=== PATIENT | male | born 1970 | race Caucasian/White ===

== ENCOUNTER 2017-12-11 21:33 | Inpatient (IN) | payer BC, OTHER ==
--- NOTE | 2017-12-11 21:42 | ERPHSYRPT ---
- History of Present Illness Time Seen by Provider: 12/11/17 21:42 Source: patient Exam Limitations: no limitations Physician History: The patient is a 47-year-old male with his complaining of worsening intermittent left-sided posterior head pain for 2 years. It has worsened over the last 3 months. Over the last week it is almost constant pain. He quit taking his medicines for hypertension and high cholesterol 2 years ago because they were too expensive. He knows his blood pressure is high. He denies visual disturbances. He denies numbness or tingling. He denies chest pain or shortness of breath. His past medical history is significant for hypertension and high cholesterol. Timing/Duration: intermittent, gradual onset, worse, other (2 years) Severity: severe Modifying Factors: Improves With: nothing Associated Symptoms: headaches Allergies/Adverse Reactions: Iodinated Contrast- Oral and IV Dye [Iodinated Contrast Media - IV Dye] Allergy (Mild, Verified 05/02/16 03:15) Hives Home Medications: Aspirin 81 gm Chew [Baby Aspirin 81 mg Chew] 81 mg PO DAILY 08/09/15 [ History] Atorvastatin Calcium [Lipitor 20MG Tablet] 20 mg PO DAILY 08/09/15 [History] Chlorthalidone 25 mg PO DAILY 08/09/15 [History] Clonidine HCl [Catapres] 0.2 mg PO DAILY 08/09/15 [History] Nebivolol HCl [Bystolic] 10 mg PO DAILY 08/09/15 [History] Olmesartan/Hydrochlorothiazide [Benicar Hct 40-25 mg Tablet] 1 each PO DAILY [History] Hx Tetanus, Diphtheria Vaccination/Date Given: Yes Hx Influenza Vaccination/Date Given: No Hx Pneumococcal Vaccination/Date Given: No - Review of Systems Constitutional: No Fever, No Chills Eyes: No Symptoms Ears, Nose, & Throat: No Symptoms Respiratory: No Cough, No Dyspnea Cardiac: No Chest Pain, No Edema, No Syncope Abdominal/Gastrointestinal: No Abdominal Pain, No Nausea, No Vomiting, No Diarrhea Genitourinary Symptoms: No Dysuria Musculoskeletal: No Back Pain, No Neck Pain Skin: No Rash Neurological: Headache Psychological: No Symptoms Endocrine: No Symptoms Hematologic/Lymphatic: No Symptoms Immunological/Allergic: No Symptoms All Other Systems: Reviewed and Negative - Past Medical History Pertinent Past Medical History: Yes Neurological History: No Pertinent History ENT History: No Pertinent History Cardiac History: High Cholesterol, Hypertension Respiratory History: No Pertinent History Endocrine Medical History: No Pertinent History Musculoskeletal History: No Pertinent History GI Medical History: No Pertinent History History: No Pertinent History Psycho-Social History: No Pertinent History Male Reproductive Disorders: No Pertinent History - Past Surgical History Past Surgical History: Yes Neuro Surgical History: No Pertinent History Cardiac: No Pertinent History Respiratory: No Pertinent History Gastrointestinal: No Pertinent History Genitourinary: No Pertinent History Musculoskeletal: Orthopedic Surgery Male Surgical History: No Pertinent History - Social History Smoking Status: Never smoker Exposure to second hand smoke: No Drug Use: none Patient Lives Alone: No - Nursing Vital Signs Nursing Vital Signs: Initial Vital Signs Pulse Rate 81 12/11/17 21:33 Respiratory Rate 16 12/11/17 21:33 Blood Pressure 247/150 12/11/17 21:33 O2 Sat by Pulse Oximetry 96 12/11/17 21:33 Pain Scale Pain Intensity 6 - Physical Exam General Appearance: no apparent distress, alert Eye Exam: PERRL/EOMI, eyes nml inspection Ears, Nose, Throat Exam: normal ENT inspection, TMs normal, pharynx normal, moist mucous membranes Neck Exam: supple, full range of motion, other (point tenderness at base of left lateral occiput.) Respiratory Exam: normal breath sounds, lungs clear, No respiratory distress Cardiovascular Exam: regular rate/rhythm, normal heart sounds, normal peripheral pulses Gastrointestinal/Abdomen Exam: soft, normal bowel sounds, No tenderness, No mass Rectal Exam: not done Back Exam: normal inspection, normal range of motion, No CVA tenderness, No vertebral tenderness Neurologic Exam: alert, oriented x 3, cooperative, normal mood/affect, nml cerebellar function, nml station & gait, sensation nml, No motor deficits Skin Exam: normal color, warm, dry, No rash Lymphatic Exam: No adenopathy SpO2 Interpretation: normal Oxygen Delivery: Room Air - Course EKG Interpreted by Me: RATE, Left [place] Deviation, NORMAL INTERVALS, NORMAL QRS - Radiology Exams Chest X-ray Interpretation: Interpreted by me, Negative - CT Exams Head CT Interpretation: Negative (Per Dr Gallagher), Tele-radiologist Report, No/ Intracranial Hemorrhag Ordered Tests: Active Orders 24 hr Category Date Time Status EKG-ER Only STAT Care 12/11/17 22:03 Active IV Insertion STAT Care 12/11/17 22:03 Active CHEST 2 VIEWS (PA AND LAT) Stat Exams 12/11/17 22:04 Taken HEAD WITHOUT CONTRAST [CT] Stat Exams 12/11/17 22:05 Completed CBC W DIFF Stat Lab 12/11/17 22:15 Completed CMP Stat Lab 12/11/17 22:15 Completed PROTIME WITH INR Stat Lab 12/11/17 22:15 Completed TROPONIN Q3H Lab 12/11/17 22:15 Completed TROPONIN Q3H Lab 12/12/17 01:15 Ordered TROPONIN Q3H Lab 12/12/17 04:15 Ordered TROPONIN Q3H Lab 12/12/17 07:15 Ordered TROPONIN Q3H Lab 12/12/17 10:15 Ordered UA W/RFX UR CULTURE Stat Lab 12/11/17 22:31 Completed Urine Triage Profile Stat Lab 12/11/17 22:31 Completed Medication Summary Discontinued Medications Generic Name Dose Route Start Last Admin Trade Name Freq PRN Reason Stop Dose Admin Hydralazine HCl 20 mg 12/11/17 22:05 12/11/17 22:20 Apresoline 20 Mg/Ml Inj IV 12/11/17 22:06 20 mg STAT ONE Administration Hydralazine HCl Confirm 12/11/17 22:13 Apresoline 20 Mg/Ml Inj Administered 12/11/17 22:14 Dose 20 mg .ROUTE .STK-MED ONE Hydralazine HCl 20 mg 12/11/17 22:59 Apresoline 20 Mg/Ml Inj IV 12/11/17 23:00 STAT ONE Hydralazine HCl Confirm 12/11/17 23:01 Apresoline 20 Mg/Ml Inj Administered 12/11/17 23:02 Dose 20 mg .ROUTE .STK-MED ONE Morphine Sulfate 4 mg 12/11/17 23:04 Morphine Sulfate 4 Mg Inj IV 12/11/17 23:05 STAT ONE Morphine Sulfate Confirm 12/11/17 23:07 Morphine Sulfate 4 Mg Inj Administered 12/11/17 23:08 Dose 4 mg .ROUTE .STK-MED ONE Ondansetron HCl 4 mg 12/11/17 23:04 Zofran 4 Mg/2 Ml Vial IV 12/11/17 23:05 STAT ONE Ondansetron HCl Confirm 12/11/17 23:07 Zofran 4 Mg/2 Ml Vial Administered 12/11/17 23:08 Dose 4 mg .ROUTE .STK-MED ONE Potassium Chloride 40 meq 12/11/17 22:36 12/11/17 22:56 Klor Con 10 Meq PO 12/11/17 22:37 40 meq STAT ONE Administration Potassium Chloride Confirm 12/11/17 22:55 Klor Con 10 Meq Administered 12/11/17 22:56 Dose 40 meq PO .STK-MED ONE Lab/Rad Data: Laboratory Result Diagrams 12/11/17 22:15 12/11/17 22:15 Laboratory Results 12/11/17 12/11/17 12/11/17 Range/Units 22:31 22:31 22:15 WBC (4.0-10.5) K/mm3 RBC (4.1-5.6) M/mm3 Hgb (12.5-18.0) gm/dl Hct (42-50) % MCV (78-100) fl MCH (26-32) pg MCHC (32-36) g/dl RDW (11.5-14.0) % Plt Count (150-450) K/mm3 MPV (6-9.5) fl Gran % (36.0-66.0) % Eos # (Auto) (0-0.5) Absolute Lymphs (auto) (1.0-4.6) Absolute Monos (auto) (0.0-1.3) Lymphocytes % (24.0-44.0) % Monocytes % (0.0-12.0) % Eosinophils % (0.00-5.0) % Basophils % (0.0-0.4) % Absolute Granulocytes (1.4-6.9) Basophils # (0-0.4) PT (8.83-12.87) SECONDS INR (0.8-3.0) Sodium (137-145) mmol/L Potassium (3.5-5.1) mmol/L Chloride (98-107) mmol/L Carbon Dioxide (22-30) mmol/L Anion Gap (5-15) MEQ/L BUN (9-20) mg/dL Creatinine (0.66-1.25) mg/dL Estimated GFR ML/MIN Glucose (74-106) mg/dL Calcium (8.4-10.2) mg/dL Total Bilirubin (0.2-1.3) mg/dL AST (17-59) U/L ALT (0-50) U/L Alkaline Phosphatase (38-126) U/L Troponin I < 0.012 (0.000-0.034) ng/mL Serum Total Protein (6.3-8.2) g/dL Albumin (3.5-5.0) g/dL Ur Collection Type VOID Urine Color YELLOW (YELLOW) Urine Appearance CLEAR (CLEAR) Urine pH 5.0 (5-6) Ur Specific [place] 1.020 (1.005-1.025) Urine Protein NEGATIVE (Negative) Urine Ketones NEGATIVE (NEGATIVE) Urine Blood NEGATIVE (0-5) Pastor/ul Urine Nitrite NEGATIVE (NEGATIVE) Urine Bilirubin NEGATIVE (NEGATIVE) Urine Urobilinogen NORMAL (0-1) mg/dL Ur Leukocyte Esterase NEGATIVE (NEGATIVE) Urine Culture Reflexed NO (NO) Urine Glucose NEGATIVE (NEGATIVE) mg/dL Urine Opiates Level NEGATIVE (NEGATIVE) Ur Methadone NEGATIVE (NEGATIVE) Urine Barbiturates NEGATIVE (NEGATIVE) Ur Phencyclidine (PCP) NEGATIVE (NEGATIVE) Urine Amphetamine NEGATIVE (NEGATIVE) U Benzodiazepine Level NEGATIVE (NEGATIVE) Urine Cocaine NEGATIVE (NEGATIVE) Urine Marijuana (THC) NEGATIVE (NEGATIVE) Specimen Received 12/11/17222912/11/17 12/11/17 12/11/17 Range/Units 22:15 22:15 22:15 WBC 6.8 (4.0-10.5) K/mm3 RBC 5.17 (4.1-5.6) M/mm3 Hgb 15.7 (12.5-18.0) gm/dl Hct 44.3 (42-50) % MCV 85.7 (78-100) fl MCH 30.4 (26-32) pg MCHC 35.4 (32-36) g/dl RDW 14.0 (11.5-14.0) % Plt Count 205 (150-450) K/mm3 MPV 11.0 H (6-9.5) fl Gran % 49.1 (36.0-66.0) % Eos # (Auto) 0.31 (0-0.5) Absolute Lymphs (auto) 2.44 (1.0-4.6) Absolute Monos (auto) 0.69 (0.0-1.3) Lymphocytes % 35.7 (24.0-44.0) % Monocytes % 10.1 (0.0-12.0) % Eosinophils % 4.5 (0.00-5.0) % Basophils % 0.6 (0.0-0.4) % Absolute Granulocytes 3.35 (1.4-6.9) Basophils # 0.04 (0-0.4) PT 11.1 (8.83-12.87) SECONDS INR 0.95 (0.8-3.0) Sodium 146 H (137-145) mmol/L Potassium 2.8 L* (3.5-5.1) mmol/L Chloride 104 (98-107) mmol/L Carbon Dioxide 31 H (22-30) mmol/L Anion Gap 13.4 (5-15) MEQ/L BUN 16 (9-20) mg/dL Creatinine 1.28 H (0.66-1.25) mg/dL Estimated GFR > 60.0 ML/MIN Glucose 150 H (74-106) mg/dL Calcium 9.8 (8.4-10.2) mg/dL Total Bilirubin 0.50 (0.2-1.3) mg/dL AST 25 (17-59) U/L ALT 44 (0-50) U/L Alkaline Phosphatase 96 (38-126) U/L Troponin I (0.000-0.034) ng/mL Serum Total Protein 7.4 (6.3-8.2) g/dL Albumin 4.6 (3.5-5.0) g/dL Ur Collection Type Urine Color (YELLOW) Urine Appearance (CLEAR) Urine pH (5-6) Ur Specific [place] (1.005-1.025) Urine Protein (Negative) Urine Ketones (NEGATIVE) Urine Blood (0-5) Pastor/ul Urine Nitrite (NEGATIVE) Urine Bilirubin (NEGATIVE) Urine Urobilinogen (0-1) mg/dL Ur Leukocyte Esterase (NEGATIVE) Urine Culture Reflexed (NO) Urine Glucose (NEGATIVE) mg/dL Urine Opiates Level (NEGATIVE) Ur Methadone (NEGATIVE) Urine Barbiturates (NEGATIVE) Ur Phencyclidine (PCP) (NEGATIVE) Urine Amphetamine (NEGATIVE) U Benzodiazepine Level (NEGATIVE) Urine Cocaine (NEGATIVE) Urine Marijuana (THC) (NEGATIVE) Specimen Received - Progress Progress: improved Discussed with : Constantine (admit for Dr Suarez) Will see patient in: hospital (full admit) Counseled pt/family regarding: lab results, diagnosis, rad results - Departure Time of Disposition: 23:13 Departure Disposition: In-patient Admission (per Dr Fitch for Dr Suarez) Clinical Impression: Malignant hypertension, Hypokalemia, Headache Condition: Stable Critical Care Time: No Referrals: PHOEBE SUAREZ MD [Primary Care Provider] -
[2017-12-11] MEDS ORDERED: APRESOLINE 20 MG/ML INJ IV ONE ×2 (22:05→22:59)
[2017-12-11] MEDS ORDERED: APRESOLINE 20 MG/ML INJ ONE ×2 (22:13→23:01)
[2017-12-11 22:19] LABS: BASOPHIL % 0.6 % (0.0-0.4); Basophil (Absolute #) 0.04 (0-0.4); Eosinophil % 4.5 % (0.00-5.0); Eosinophil (Absolute #) 0.31 (0-0.5); Granulocyte Absolute (ANC) 3.35 (1.4-6.9); Granulocytes % 49.1 % (36.0-66.0); Hematocrit 44.3 % (42-50); Hemoglobin 15.7 gm/dl (12.5-18.0); INR 0.95 (0.8-3.0); Lymphocyte (Absolute #) 2.44 (1.0-4.6); Lymphocytes % 35.7 % (24.0-44.0); Mean Cell Volume 85.7 fl (78-100); Mean Corpuscular Hemoglobin 30.4 pg (26-32); Mean Corpuscular Hgb Concent. 35.4 g/dl (32-36); Monocyte (Absolute #) 0.69 (0.0-1.3); Monocytes % 10.1 % (0.0-12.0); Platelet Count 205 K/mm3 (150-450); Red Blood Count 5.17 M/mm3 (4.1-5.6); White Blood Count 6.8 K/mm3 (4.0-10.5)
[2017-12-11 22:22] LABS: ALBUMIN 4.6 g/dL (3.5-5.0); ALKALINE PHOSPHATASE 96 U/L (38-126); ANION GAP 13.4 MEQ/L (5-15); BLOOD UREA NITROGEN 16 mg/dL (9-20); CHLORIDE 104 mmol/L (98-107); Calcium 9.8 mg/dL (8.4-10.2); Carbon Dioxide 31 mmol/L (22-30); Creatinine 1 1.28 mg/dL (0.66-1.25); Glucose 150 mg/dL (74-106); SGOT/AST 25 U/L (17-59); SGPT/ALT 44 U/L (0-50); SODIUM 146 mmol/L (137-145); Total Protein 7.4 g/dL (6.3-8.2)
[2017-12-11 22:28] LABS: Potassium 2.8 mmol/L (3.5-5.1)
[2017-12-11 22:35] LABS: Appearance CLEAR (CLEAR); Bilirubin NEGATIVE (NEGATIVE); Blood NEGATIVE Ery/ul (0-5); Glucose NEGATIVE (NEGATIVE); Ketones NEGATIVE (NEGATIVE); Leukocyte Esterase NEGATIVE (NEGATIVE); Nitrite NEGATIVE (NEGATIVE); Protein,Urine Dip NEGATIVE (Negative); Urobilinogen NORMAL mg/dL (0-1)
[2017-12-11] MEDS ORDERED: Klor Con 10 MEQ PO ONE ×2 (22:36→22:55)
--- NOTE | 2017-12-11 22:45 | XRAY ---
Indication: Headache. Hypertension. Multiple contiguous axial images obtained through the head without contrast. Comparison: None Age-appropriate global atrophy and minimal periventricular degenerative micro-ischemia bilaterally. No acute intracranial hemorrhage, abnormal extra-axial fluid collection, or mass effect. Fourth ventricle is midline without hydrocephalus. Bony calvarium intact. Visualized paranasal sinuses and mastoid air cells are clear. Impression: Global atrophy and minimal degenerative micro-ischemia within normal limits for patient's age. No acute intracranial abnormalities. CTDI 69.25
[2017-12-11 22:50] LABS: Amphetamine,Urine NEGATIVE (NEGATIVE); Barbiturate,Urine NEGATIVE (NEGATIVE); Benzodiazepine,Urine NEGATIVE (NEGATIVE); Cocaine,Urine NEGATIVE (NEGATIVE); Methadone,Urine NEGATIVE (NEGATIVE); Opiate,Urine NEGATIVE (NEGATIVE); PCP,Urine NEGATIVE (NEGATIVE); THC,Urine NEGATIVE (NEGATIVE)
[2017-12-11] MEDS ORDERED: MORPHINE SULFATE 4 MG INJ IV ONE (23:04)
[2017-12-11] MEDS ORDERED: Zofran 4 MG/2 ML VIAL IV ONE (23:04)
[2017-12-11] MEDS ORDERED: MORPHINE SULFATE 4 MG INJ ONE (23:07)
[2017-12-11] MEDS ORDERED: Zofran 4 MG/2 ML VIAL ONE (23:07)
[2017-12-12] MEDS ORDERED: LOPRESSOR 5 MG/5 ML INJECTION IV SCH (00:31)
[2017-12-12] MEDS ORDERED: Zofran 4 MG/2 ML VIAL IV PRN (00:31)
[2017-12-12] MEDS: Sodium Chloride 0.9% W/ 20 mEq KCl/LITER 1,000 ML IV SCH ×3 (01:34→22:08)
[2017-12-12] MEDS ORDERED: LOPRESSOR 5 MG/5 ML INJECTION IV ONE ×2 (02:20→05:15)
[2017-12-12] MEDS: MORPHINE SULFATE 4 MG INJ IV PRN ×2 (03:33→22:08)
[2017-12-12] MEDS ORDERED: BUSPAR 5 MG PO PRN (05:05)
[2017-12-12] MEDS: LOPRESSOR 5 MG/5 ML INJECTION IV SCH ×2 (05:17→08:39)
[2017-12-12] MEDS ORDERED: Ntg 0.2MG/Ml in D5W GLASS*** 250 ML IV PRN (05:36)
[2017-12-12 05:49] LABS: ANION GAP 12.7 MEQ/L (5-15); BLOOD UREA NITROGEN 14 mg/dL (9-20); CHLORIDE 106 mmol/L (98-107); Calcium 9.3 mg/dL (8.4-10.2); Carbon Dioxide 29 mmol/L (22-30); Glucose 108 mg/dL (74-106); Potassium 3.4 mmol/L (3.5-5.1); SODIUM 144 mmol/L (137-145)
[2017-12-12 05:50] LABS: BASOPHIL % 0.3 % (0.0-0.4); Basophil (Absolute #) 0.03 (0-0.4); Eosinophil (Absolute #) 0.38 (0-0.5); Granulocyte Absolute (ANC) 5.73 (1.4-6.9); Granulocytes % 60.4 % (36.0-66.0); Hematocrit 44.5 % (42-50); Hemoglobin 15.7 gm/dl (12.5-18.0); Lymphocyte (Absolute #) 2.44 (1.0-4.6); Lymphocytes % 25.7 % (24.0-44.0); Mean Cell Volume 86.2 fl (78-100); Mean Corpuscular Hemoglobin 30.4 pg (26-32); Mean Corpuscular Hgb Concent. 35.3 g/dl (32-36); Mean Platelet Volume 11.3 fl (6-9.5); Monocyte (Absolute #) 0.91 (0.0-1.3); Monocytes % 9.6 % (0.0-12.0); Platelet Count 194 K/mm3 (150-450); Red Blood Count 5.16 M/mm3 (4.1-5.6); Red Cell Distribution Width 14.1 % (11.5-14.0); White Blood Count 9.5 K/mm3 (4.0-10.5)
[2017-12-12] MEDS ORDERED: Ecotrin 325 MG PO ONE (06:30)
--- NOTE | 2017-12-12 07:26 | XRAY ---
Indication: Hypertension. Comparison: None PA/lateral chest demonstrates normal heart and lungs. Bony thorax intact with mild double curvature scoliosis and old left clavicle fracture.
[2017-12-12] MEDS: TYLENOL 325 MG PO PRN ×3 (07:28→20:13)
[2017-12-12] MEDS: Lopressor 50 MG PO SCH ×2 (09:58→20:16)
[2017-12-12] MEDS: Zestril 10 MG PO SCH (09:58)
[2017-12-12] MEDS ORDERED: Klor Con 10 MEQ PO ONE (10:01)
[2017-12-12] MEDS: BUSPAR 5 MG PO PRN (20:16)
[2017-12-12] MEDS ORDERED: Lopressor 50 MG PO ONE (22:00)
[2017-12-13] MEDS: hydroDIURIL 25 MG PO SCH ×2 (05:08→07:30)
[2017-12-13 06:09] LABS: ANION GAP 11.6 MEQ/L (5-15); BLOOD UREA NITROGEN 14 mg/dL (9-20); CHLORIDE 108 mmol/L (98-107); Carbon Dioxide 27 mmol/L (22-30); Creatinine 1 1.02 mg/dL (0.66-1.25); Glucose 103 mg/dL (74-106); Potassium 3.7 mmol/L (3.5-5.1); SODIUM 143 mmol/L (137-145)
[2017-12-13] MEDS: Sodium Chloride 0.9% W/ 20 mEq KCl/LITER 1,000 ML IV SCH ×2 (07:30→19:27)
[2017-12-13] MEDS: Zestril 10 MG PO SCH (07:30)
[2017-12-13] MEDS: Lopressor 50 MG PO SCH ×2 (07:30→21:54)
[2017-12-13] MEDS: TYLENOL 325 MG PO PRN ×3 (07:30→21:55)
[2017-12-13] MEDS ORDERED: Zestril 10 MG PO ONE ×2 (09:00)
[2017-12-13] MEDS ORDERED: Lopressor 50 MG PO ONE (09:00)
[2017-12-13] MEDS ORDERED: Klor Con 10 MEQ PO ONE (09:01)
--- NOTE | 2017-12-13 09:08 | PCM.NOTE ---
Date and Time: 12/13/17901 Subjective Assessment: He reports that at 5 am he didn't have a headache but then it came back and then got better again with tylenol and moving around the room. He denies any headache now and says that when his head doesn't hurt he is able to move his neck fine and look to the left but when it does hurt, he has trouble moving his head to the left. He reports that his headache is usually on the left side toward the back of his head. He had a bowel movement today. He reports a history of hematuria and kidney problems when he was 7 years old but can't remember details. They did an IVP he reports when he was 7 yo and this is when he had the severe reaction to the dye. He is not sure if he had urinary reflux. - Review of Systems Constitutional: No Symptoms Eyes: No Symptoms Ears, Nose, & Throat: No Symptoms Respiratory: No Symptoms Cardiac: No Symptoms Abdominal/Gastrointestinal: No Symptoms Genitourinary Symptoms: No Symptoms Musculoskeletal: No Symptoms Skin: No Symptoms Neurological: Other (headache comes and goes) Objective Exam General Appearance: no apparent distress, alert, other ( at bedside) Neurologic Exam: alert, cooperative, normal mood/affect Skin Exam: normal color, warm, dry Neck Exam: normal inspection, non-tender, supple, full range of motion, No meningismus Respiratory Exam: normal breath sounds, lungs clear, No crackles/rales, No rhonchi, No wheezing Cardiovascular Exam: regular rate/rhythm, normal heart sounds, No murmur, No friction rub, No gallop Gastrointestinal/Abdomen Exam: soft, normal bowel sounds, No tenderness, No distention, No mass Extremity Exam: other (no c/c/e) OBJECTIVE DATA Vital Signs: Vital Signs - 24 hr Temp Pulse Resp BP Pulse Ox 12/13/17 07:20 98.1 F 77 18 186/119 96 12/13/17 04:45 98.2 F 66 18 180/126 95 12/12/17 21:53 62 194/121 12/12/17 20:00 97.9 F 71 19 178/109 97 12/12/17 16:00 70 12/12/17 15:30 98.2 F 63 14 166/112 97 12/12/17 15:00 66 20 154/96 95 12/12/17 14:30 69 17 178/121 95 12/12/17 14:00 67 16 171/116 95 12/12/17 13:30 67 14 172/108 95 12/12/17 13:00 98.7 F 73 12 182/116 97 12/12/17 12:30 98.7 F 73 12 182/116 97 12/12/17 12:00 73 12/12/17 11:30 66 10 L 171/109 97 12/12/17 11:00 68 14 176/113 97 12/12/17 10:30 64 10 L 165/115 96 12/12/17 10:14 76 14 148/83 96 12/12/17 10:00 74 17 148/83 96 12/12/17 09:30 76 18 171/104 94 L Pain Assessment - Last Documented Pain Intensity 8 Pain Scale Used 0-10 Pain Scale Intake and Output: Intake & Output 12/11/17 12/12/17 12/13/17 12/14/17 06:59 06:59 06:59 06:59 Intake Total 500 4283 240 Output Total 450 1500 250 Balance 50 2783 -10 Weight 101.3 kg Lab Results: Lab Results-Last 24 Hours 12/12/17 12/12/17 12/12/17 Range/Units 04:15 10:10 10:11 Sodium (137-145) mmol/L Potassium (3.5-5.1) mmol/L Chloride (98-107) mmol/L Carbon Dioxide (22-30) mmol/L Anion Gap (5-15) MEQ/L BUN (9-20) mg/dL Creatinine (0.66-1.25) mg/dL Estimated GFR ML/MIN Glucose (74-106) mg/dL Hemoglobin A1c 5.30 (4.5-6.0) % Calcium (8.4-10.2) mg/dL Troponin I 0.044 H* (0.000-0.034) ng/mL TSH 3rd Generation 2.600 (0.47-4.68) mIU/L 12/13/17 Range/Units 05:15 Sodium 143 (137-145) mmol/L Potassium 3.7 (3.5-5.1) mmol/L Chloride 108 H (98-107) mmol/L Carbon Dioxide 27 (22-30) mmol/L Anion Gap 11.6 (5-15) MEQ/L BUN 14 (9-20) mg/dL Creatinine 1.02 (0.66-1.25) mg/dL Estimated GFR > 60.0 ML/MIN Glucose 103 (74-106) mg/dL Hemoglobin A1c (4.5-6.0) % Calcium 9.0 (8.4-10.2) mg/dL Troponin I (0.000-0.034) ng/mL TSH 3rd Generation (0.47-4.68) mIU/L Radiology Exams: Radiology Procedures Category Date Time Status CHEST 2 VIEWS (PA AND LAT) Stat Exams 12/11/17 22:04 Completed ECHO W/2D AND DOPPLER [US] Routine Exams 12/14/17 10:00 Ordered HEAD WITHOUT CONTRAST [CT] Stat Exams 12/11/17 22:05 Completed Multi-Disciplinary Progress Notes: Multi-Disciplinary Progress Notes 12/12/17 11:13 Case Management Note by Jemima Villatoro DISCHARGE PLAN REVIEWED WITH PATIENT AND . PATIENT DOES HAVE TROUBLE AFFORDING MEDICATIONS AND DOCTOR VISITS. AT THIS TIME PATIENT IS SELF PAY. S/ W LISA IN REGISTRATION AND SHE STATES PT DID NOT QUALIFY FOR PRESUMPTIVE ELIGIBILITY, BUT SOME OF THE DATA HAD POSSIBLY BEEN INPUT ERROR, SHE WILL TRY AGAIN HIS INCOME IS LESS THAN ORIGINALLY PRESUMED. MARS SOLORZANO S/W PATIENT ABOUT MEDICATION ON THE $4 LIST AT [facility] AND GAVE THE PATIENT AND HIS FAMILY LISTS OF COMPARISONS WITH DIFFERENT PHARMACIES. ALSO S/W THE PATIENT ABOUT OUR FINANCIAL OFFICE THAT GIVES [employer] TO THOSE WHO PURSUE IT, AND GAVE THE NUMBER TO TALK TO JO ARREGUIN AND EXPLAIN FINANCIALS, WELL MAKE AN APPOINTMENT WITH [facility], WHO CAN HELP WITH DIFFERENT COVERAGES. IF THE PATIENT IS ELIGIBLE FOR PE, HIS MEDICATIONS WELL HIS TRANSPORTATION WILL BE TAKEN CARE OF. ALSO WILL SEND A NOTE TO OUR [employer] DR[employer] TO SEE IF THIS PATIENT QUALIFIES FOR THEIR SERVICE WHICH SHOULD HELP ORGANIZE SOME OF THE NEEDS IN THE HOME WELL HELP WITH ORGANIZATION. PATIENT IS AWARE OF THE SERVICES BEING LOOKED INTO ON HIS BEHALF AND STATES HE WILL FOLLOW DIRECTION ON LEAVING THE HOSPITAL. Initialized on 12/12/17 11:13 - END OF NOTE Assessment/Plan (1) Severe hypertension Current Visit: Yes Status: Acute Assessment & Plan: Continue with lisinopril 20 mg po bid, metoprolol 100 mg bid, HCTZ 25 mg po daily. Consult nephrology as this continues to be hard to manage with numbers around 180/110. Systolic was 260 in the ER when he presented. TSH was normal. EKG without LVH. UA without protein. Echo ordered for tomorrow. Yesterday he was weaned off a nitroglycerin drip that was used for his severe hypertension. This was able to be weaned off when he was started on oral mediations yesterday. Will decrease his IV fluids today as well. Code(s): I10 - ESSENTIAL (PRIMARY) HYPERTENSION (2) Elevated troponin Current Visit: Yes Status: Acute Assessment & Plan: This was trending down. Dr. Fantasma Oquendo was consulted as he was covering for Dr. Hill. Continue aspirin 325 mg po daily. EKG was without changes. He has not had chest pain in the hospital. Code(s): R74.8 - ABNORMAL LEVELS OF OTHER SERUM ENZYMES (3) Headache Current Visit: Yes Status: Acute Assessment & Plan: May be secondary to blood pressure or a tension type headache versus a rebound headache. He does report taking over the counter ibuprofen at home (800 mg) frequently. Code(s): R51 - HEADACHE (4) Hyperglycemia Current Visit: Yes Status: Acute Assessment & Plan: Hgb A1C was normal. Code(s): R73.9 - HYPERGLYCEMIA, UNSPECIFIED
[2017-12-13] MEDS: Ecotrin 325 MG PO SCH (09:25)
[2017-12-13] MEDS ORDERED: Catapres 0.1 MG PO ONE (11:24)
[2017-12-13] MEDS: BUSPAR 5 MG PO PRN (21:50)
[2017-12-13] MEDS: Zestril 20 MG PO SCH (21:54)
[2017-12-13] MEDS ORDERED: Catapres 0.1 MG PO SCH (22:00)
[2017-12-14] MEDS: Sodium Chloride 0.9% W/ 20 mEq KCl/LITER 1,000 ML IV SCH (00:22)
[2017-12-14] MEDS: TYLENOL 325 MG PO PRN ×2 (05:11→09:17)
[2017-12-14 05:50] LABS: ANION GAP 10.7 MEQ/L (5-15); BLOOD UREA NITROGEN 13 mg/dL (9-20); CHLORIDE 106 mmol/L (98-107); Carbon Dioxide 29 mmol/L (22-30); Creatinine 1 1.02 mg/dL (0.66-1.25); Glucose 100 mg/dL (74-106); Potassium 3.6 mmol/L (3.5-5.1); SODIUM 142 mmol/L (137-145)
[2017-12-14] MEDS ORDERED: Ativan 2 MG/1 ML VIAL IV ONE (08:36)
--- NOTE | 2017-12-14 08:41 | PCM.NOTE ---
Date and Time: 12/14/17 0838 Subjective Assessment: patient still c/o headache, bp remains elevated this morning. head pain had been constant in occiput on the left side. no visual changes, no numbness, tingling weakness or paresthesias. Objective Exam General Appearance: no apparent distress, alert Skin Exam: normal color, warm, dry Respiratory Exam: normal breath sounds, lungs clear, No respiratory distress Cardiovascular Exam: regular rate/rhythm, normal heart sounds Gastrointestinal/Abdomen Exam: soft, No tenderness, No mass Extremity Exam: normal inspection, normal range of motion OBJECTIVE DATA Vital Signs: Vital Signs - 24 hr Temp Pulse Resp BP Pulse Ox 12/14/17 06:52 98.2 F 68 18 180/110 97 12/14/17 04:00 98.0 F 60 18 160/112 96 12/14/17 00:00 98.1 F 61 20 150/95 97 12/13/17 20:00 98.6 F 67 18 198/115 97 12/13/17 16:28 98.6 F 65 18 181/111 98 12/13/17 14:23 76 178/111 12/13/17 11:33 98.4 F 70 18 198/118 95 12/13/17 09:26 198/119 Pain Assessment - Last Documented Pain Intensity 3 Pain Scale Used 0-10 Pain Scale Intake and Output: Intake & Output 12/11/17 12/12/17 12/13/17 12/14/17 11:59 11:59 11:59 11:59 Intake Total 500 4523 3086 Output Total 850 2350 1750 Balance -350 2173 1336 Weight 101.3 kg 101.3 kg Lab Results: Lab Results-Last 24 Hours 12/14/17 Range/Units 05:13 Sodium 142 (137-145) mmol/L Potassium 3.6 (3.5-5.1) mmol/L Chloride 106 (98-107) mmol/L Carbon Dioxide 29 (22-30) mmol/L Anion Gap 10.7 (5-15) MEQ/L BUN 13 (9-20) mg/dL Creatinine 1.02 (0.66-1.25) mg/dL Estimated GFR > 60.0 ML/MIN Glucose 100 (74-106) mg/dL Calcium 9.0 (8.4-10.2) mg/dL Radiology Exams: Radiology Procedures Category Date Time Status ECHO W/2D AND DOPPLER [US] Routine Exams 12/14/17 10:00 Ordered MRI BRAIN WITH CONTRAST [MRI] Urgent Exams 12/14/17 08:36 Ordered Assessment/Plan (1) Malignant hypertension Current Visit: Yes Status: Acute Assessment & Plan: continue metoprolol 100mg bid, will increase clonidine to 0.2mg bid, continue hctz 25mg daily and lisinopril 20mg bid Code(s): I10 - ESSENTIAL (PRIMARY) HYPERTENSION (2) Headache Current Visit: Yes Status: Acute Assessment & Plan: MRI due to persistence of headache and long duration of constant headache. Code(s): R51 - HEADACHE (3) Elevated troponin Current Visit: Yes Status: Acute Code(s): R74.8 - ABNORMAL LEVELS OF OTHER SERUM ENZYMES
[2017-12-14] MEDS: Zestril 20 MG PO SCH ×2 (09:43→21:15)
[2017-12-14] MEDS: Ecotrin 325 MG PO SCH (09:43)
[2017-12-14] MEDS: Catapres 0.1 MG PO SCH ×2 (09:43→21:15)
[2017-12-14] MEDS: Lopressor 50 MG PO SCH (09:43)
[2017-12-14] MEDS: hydroDIURIL 25 MG PO SCH (09:43)
--- NOTE | 2017-12-14 10:08 | HP ---
HISTORY OF PRESENT ILLNESS: This is a 47 year-old patient of Dr. Flores who presented to the emergency department complaining of headache and high blood pressure. The patient reports that he has had high blood pressure since he was in his 20's and a strong family history of blood pressure. He reports for two years he had a sharp pain in the back of his head that would last 30 to 40 seconds on the left side. In the last six months, his pain became more often and in the past two to three weeks it has been constant. He has been worried that he may have an aneurysm. He states it is sharp and below his ear on the left. He does not have any nausea or vomiting with this. Over the past two nights he had a harder time breathing and felt clammy but has not had a fever. He also when asked reported some sharp left-sided chest pain that lasted seconds. It is not worse with exertion. He reports that he has not taken his medications due to the cost of the medications and due to the cost of doctor visits. REVIEW OF SYSTEMS: No fever. No cough. No rhinorrhea. No nosebleed. No abdominal pain. No lower extremity edema. No rashes. PAST MEDICAL HISTORY: Hypertension. MEDICATIONS: He has been taking ibuprofen 800 mg t.i.d. that is all he has had. ALLERGIES: DYE. SOCIAL HISTORY: Denies any tobacco. No drugs. No alcohol. 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 FAMILY HISTORY: His mother is and when she was 74 and had hypertension, coronary artery disease and diabetes. His father has history of hypertension. He has a brother who had bypass surgery for his heart when he was 52 and a sister with diabetes mellitus type 2 and hypertension who is living and 56 years of age. PHYSICAL EXAMINATION: VITAL SIGNS: Temperature current 98.3F, temperature max 98.3F, heart rate 73 to 102 currently 73, respiratory rate 10 to 17 currently 17, blood pressure 162 to 247 over 105 to 150 currently 180/118, weight 101.3 kg. Oxygen saturation 94 to 97% on room air. GENERAL: The patient is a pleasant talkative man lying in bed in no acute distress. His is at the bedside. HEENT: Tympanic membranes are clear. Mouth is without any erythema or exudate. Mucous membranes are moist. NECK: Supple, full range of motion of his neck. No nuchal rigidity. CVS: Heart has a regular rate and rhythm. No murmurs, gallops or rubs are appreciated. CHEST: Clear to auscultation bilaterally. No crackles or wheezes. ABDOMEN: Soft, nontender, nondistended with normal bowel sounds. EXTREMITIES: No clubbing, cyanosis or edema. SKIN: Warm, dry and intact. LABORATORY DATA AND TESTS: CBC is within normal limits. On admission his potassium was 2.8 and now 3.4. Glucose 150 on admission and now 108. Creatinine was 1.28 on admission and now 1. Troponin on admission was less than 0.012. He had serial troponin ordered from the emergency room. The next one at 0112 on 12/12/2017 was 0.030. At 0437 on 12/12/2017 was 0.059. At 0714 on 12/12/2017 it was 0.049. He had a urine tox was negative. UA negative. There was no protein. Head CT without any acute changes. Please see the radiologist report for full dictation. Chest x-ray without any acute changes. Again, please see the radiologist report for the full dictation. He had an EKG this morning with heart rate of 70, nonspecific T-wave changes in V5 and V6, T-wave flattening in II, III and aVF as well as T-wave inversions in lead I and aVL. No ST changes are seen. Sinus rhythm. ASSESSMENT AND PLAN: 1) HYPERTENSIVE EMERGENCY: The emergency room doctor reported he gave him two doses of hydralazine IV 20 mg in the emergency room and also started him on metoprolol 5 mg doses. He continued to have hypertension. Early this morning I started him on a nitroglycerin drip. Our goal for his blood pressure right now is felt to be 170/110 but not too aggressive. His blood pressure mean on admission was 182 and currently 138. I am going to start him on some oral antihypertensive. I have ordered metoprolol 50 mg p.o. b.i.d. as well as lisinopril 10 mg p.o. daily. If his blood pressure starts to come down with these I will titrate the nitroglycerin drip off. I have ordered cardiac echo that is unavailable on the weekend so plan to have that done on Thursday if he is still here or as an outpatient if he is discharged. I asked the patient if he had any imaging of his renal arteries and he has not so that may be something to pursue as an outpatient as well. I will ask discharge planning to see him for concerns about insurance and doctor's visit costs and affording his medications. 2) ELEVATED TROPONIN: This may be due to the hypertension. His troponins are trending down. Dr. Hill was consulted but was unavailable. Dr. Temo Oquendo was covering and aware of his troponins which are now trending down. He asked for repeat EKG. 3) HEADACHE: This could be due to the blood pressure problems. If it does not resolve he may benefit from MRI on Thursday. Again, this is unavailable here on the weekend. He had a head CT that was negative.
--- NOTE | 2017-12-14 12:28 | XRAY ---
Indication: Left parietal pain. High blood pressure. Sagittal, coronal, and axial MRI brain was performed using pre-and post T1, T2, FLAIR, diffusion, and ADC sequences. 20 cc Magnevist contrast use. Comparison: None Age-appropriate global atrophy. There are multiple small ovoid T2 signal intensities in the periventricular white matter bilaterally. Similar small bilateral ovoid T2 signal intensity seen in the body of the corpus callosum oriented perpendicular to the corpus callosum. Findings suggestive of multiple sclerosis. Small 7 mm MS plaque in the left basal ganglia with enhancement. No other abnormal enhancing intra-or extra-axial mass. Diffusion images are negative for restricted signal. Fourth ventricle is midline without hydrocephalus. 7/8 cranial nerve complex bilaterally symmetric. Normal flow void signal within the major intracerebral circulation. Normal appearing craniocervical junction and sella turcica. There is moderate mucosal thickening of the inferior maxillary sinuses bilaterally. Impression: 1. Bilateral periventricular and lesser degree corpus callosum, T2 signal intensities as detailed. Rule out multiple sclerosis. Small left basal ganglia enhancing MS plaque suggestive of active demyelination. 2. No acute intracranial abnormalities or evidence for evolving large vessel territorial stroke. 3. Incidental bilateral maxillary sinus disease.
--- NOTE | 2017-12-14 15:54 | ECHO ---
Transthoracic echocardiographic examination and color Doppler was done on 12/14/2017. INDICATION: Hypertension. IMPRESSION: 1) MILD LEFT VENTRICULAR HYPOKINESIA. EJECTION FRACTION 46%. 2) TRACE MITRAL REGURGITATION. 3) TRACE TRICUSPID REGURGITATION. RIGHT VENTRICULAR SYSTOLIC PRESSURE OF 13 MM OF MERCURY. 4) LEFT ATRIAL ENLARGEMENT. 5) LEFT VENTRICULAR HYPERTROPHY. The left ventricle is visualized and demonstrated mild left ventricular hypokinesia. Ejection fraction around 46%. There is mild left ventricular hypertrophy. The mitral valve is seen and this opens adequately. There is trace mitral regurgitation. Left atrium is mildly enlarged. The aortic valve opens adequately. The right side chambers are normal. There is trace tricuspid regurgitation. The right ventricular systolic pressure of 13 mm of Mercury.
[2017-12-14] MEDS ORDERED: solu-MEDROL 40 MG IV SCH (17:00)
[2017-12-14] MEDS ORDERED: BENADRYL 25 MG CAPSULE PO SCH (17:00)
[2017-12-14] MEDS ORDERED: TYLENOL 325 MG PO SCH (17:00)
[2017-12-14] MEDS ORDERED: Ativan 2 MG/1 ML VIAL IV SCH (17:00)
[2017-12-14] MEDS: Aldactone 25 MG PO SCH (17:09)
[2017-12-14] MEDS: Trandate 100 MG PO SCH (17:10)
[2017-12-14 17:16] LABS: CREATININE,URINE RANDOM 45.4 MG/DL
[2017-12-15 05:35] LABS: Hematocrit 41.7 % (42-50); Hemoglobin 14.7 gm/dl (12.5-18.0); Mean Cell Volume 85.8 fl (78-100); Mean Corpuscular Hemoglobin 30.2 pg (26-32); Mean Corpuscular Hgb Concent. 35.3 g/dl (32-36); Mean Platelet Volume 10.9 fl (6-9.5); Platelet Count 220 K/mm3 (150-450); Red Blood Count 4.86 M/mm3 (4.1-5.6); Red Cell Distribution Width 13.8 % (11.5-14.0); White Blood Count 10.6 K/mm3 (4.0-10.5)
[2017-12-15 05:50] LABS: ALBUMIN 4.4 g/dL (3.5-5.0); ALKALINE PHOSPHATASE 74 U/L (38-126); ANION GAP 15.9 MEQ/L (5-15); BLOOD UREA NITROGEN 15 mg/dL (9-20); CHLORIDE 102 mmol/L (98-107); Calcium 9.5 mg/dL (8.4-10.2); Carbon Dioxide 26 mmol/L (22-30); Creatinine 1 1.06 mg/dL (0.66-1.25); Glucose 129 mg/dL (74-106); Potassium 3.8 mmol/L (3.5-5.1); SGOT/AST 21 U/L (17-59); SODIUM 140 mmol/L (137-145)
[2017-12-15 05:56] LABS: SGPT/ALT 43 U/L (0-50)
--- NOTE | 2017-12-15 07:20 | PCM.NOTE ---
Date and Time: 12/15/17714 Subjective Assessment: patient is feeling much better this morning, headache has resolved. discussed cta and MRI results. patient has not had any numbness, tingling, paresthesias or visual changes Objective Exam General Appearance: no apparent distress, alert Skin Exam: normal color, warm, dry Eye Exam: PERRL, EOMI, eyes nml inspection Ears, Nose, Throat Exam: normal ENT inspection, pharynx normal, moist mucous membranes Respiratory Exam: normal breath sounds, lungs clear, No respiratory distress Cardiovascular Exam: regular rate/rhythm, normal heart sounds Gastrointestinal/Abdomen Exam: soft, No tenderness, No mass OBJECTIVE DATA Vital Signs: Vital Signs - 24 hr Temp Pulse Resp BP Pulse Ox 12/15/17 06:56 98.0 F 68 18 134/74 97 12/15/17 04:00 98.1 F 93 H 18 138/85 96 12/15/17 00:30 98 F 79 18 142/82 94 L 12/14/17 20:22 75 20 169/106 96 12/14/17 18:21 74 74 H 182/104 96 12/14/17 17:56 71 14 204/128 96 12/14/17 16:00 98.2 F 63 18 174/111 98 12/14/17 12:00 98.1 F 63 18 175/106 95 Pain Assessment - Last Documented Pain Intensity 0 Pain Scale Used 0-10 Pain Scale Intake and Output: Intake & Output 12/12/17 12/13/17 12/14/17 12/15/17 11:59 11:59 11:59 11:59 Intake Total 500 4523 3086 572 Output Total 850 2350 2650 600 Balance -350 2173 436 -28 Weight 101.3 kg 101.3 kg Lab Results: Lab Results-Last 24 Hours 12/14/17 12/15/17 12/15/17 Range/Units 16:52 05:13 05:13 WBC 10.6 H (4.0-10.5) K/mm3 RBC 4.86 (4.1-5.6) M/mm3 Hgb 14.7 (12.5-18.0) gm/dl Hct 41.7 L (42-50) % MCV 85.8 (78-100) fl MCH 30.2 (26-32) pg MCHC 35.3 (32-36) g/dl RDW 13.8 (11.5-14.0) % Plt Count 220 (150-450) K/mm3 MPV 10.9 H (6-9.5) fl Sodium 140 (137-145) mmol/L Potassium 3.8 (3.5-5.1) mmol/L Chloride 102 (98-107) mmol/L Carbon Dioxide 26 (22-30) mmol/L Anion Gap 15.9 H (5-15) MEQ/L BUN 15 (9-20) mg/dL Creatinine 1.06 (0.66-1.25) mg/dL Estimated GFR > 60.0 ML/MIN Glucose 129 H (74-106) mg/dL Calcium 9.5 (8.4-10.2) mg/dL Magnesium 1.8 (1.6-2.3) mg/dL Total Bilirubin 0.50 (0.2-1.3) mg/dL AST 21 (17-59) U/L ALT 43 (0-50) U/L Alkaline Phosphatase 74 (38-126) U/L Serum Total Protein 7.0 (6.3-8.2) g/dL Albumin 4.4 (3.5-5.0) g/dL Ur Random Creatinine 45.4 MG/DL U Random Total Protein 17 H (0-12) mg/dL Radiology Exams: Radiology Procedures Category Date Time Status CTA ABD/PEL W AND/OR W/O CONTR [CT] Urgent Exams 12/14/17 18:33 Taken ECHO W/2D AND DOPPLER [US] Routine Exams 12/14/17 10:00 Draft MRI BRAIN W & W/O CONTRAST [MRI] Urgent Exams 12/14/17 08:36 Completed Multi-Disciplinary Progress Notes: Multi-Disciplinary Progress Notes 12/14/17 10:10 (created 12/14/17 14:31) Case Management Note by Marychuy Craig INDEPENDENT WITH ALL ADL'S. NORMALLY WORKS 32 HOURS PER WEEK. DOES NOT HAVE MEDICAL INSURANCE AT THIS TIME. WILL NEED TO HAVE DRUGS PRESCRIBED FROM THE $4 LIST IF POSSIBLE ON DISCHARGE. ALSO, CAN USE GOOD RX DISCOUNT CARD. [facility] MAY ALSO HAVE ASSISTANCE FOR PT ON DISCHARGE, [facility], FROM MEDS TO BEDS IS LOOKING INTO ASSISTING WITH ANY NEW RX'S. NO ADDNL NEEDS NOTED AT PRESENT. WILL CONTINUE TO FOLLOW FOR ALL DC NEEDS. Initialized on 12/14/17 14:31 - END OF NOTE Assessment/Plan (1) Malignant hypertension Current Visit: Yes Status: Acute Assessment & Plan: much better controlled, appreciated Dr Hernandez's consultation and recommendations. Code(s): I10 - ESSENTIAL (PRIMARY) HYPERTENSION (2) Headache Current Visit: Yes Status: Acute Assessment & Plan: MRI reviewed, areas of bilateral periventricular T2 intensities and corpus callosum. will order tele-neurology consult at this time, suspect areas are related to longstanding accelerated hypertension changes Code(s): R51 - HEADACHE (3) Elevated troponin Current Visit: Yes Status: Acute Assessment & Plan: likely related to strain from hypertension although echo shows some mild decrease in ejection fraction. will consult with Dr Hill Code(s): R74.8 - ABNORMAL LEVELS OF OTHER SERUM ENZYMES
--- NOTE | 2017-12-15 08:59 | XRAY ---
Indication: High blood pressure. Adrenal adenoma. Renal artery stenosis. CTA abdomen/pelvis performed prior to and following 100 cc Isovue 370 contrast. Two-dimensional sagittal and coronal reformatted images obtained. Additional 3-dimensional reformatted images obtained using a separate workstation. Comparison: CT renal stone study August 09, 2015. Patient has known IV contrast allergy and was premedicated appropriately. Examination was performed uneventfully. Noncontrast images are again negative for vascular calcifications. Postcontrast images demonstrates normal course and caliber of the abdominal aorta without aneurysm/dissection. Normal patent branching celiac, superior mesenteric, and inferior mesenteric arteries. There are 2 right main renal arteries and 1 left main renal artery appearing normal in CTA appearance. No pathologic retroperitoneal lymphadenopathy. Noncontrasted stomach and bowel loops appear nonobstructed. Normal appendix. No free fluid/air. Stable 14 cm splenomegaly, fatty liver, bilateral renal cysts, and small fatty right inguinal hernia. Remaining liver, gallbladder, pancreas, spleen, adrenal glands, kidneys, ureters, and bladder appear unremarkable. Osseous structures intact again with lumbosacral junction degenerative disc disease. Impression: 1. Normal CTA abdomen/pelvis. Negative for arteriosclerotic disease. 2. Stable fatty liver, splenomegaly, renal cysts, and fatty right inguinal hernia. 3. No new or acute intra-abdominal/pelvic abnormalities. CT DI 23.53
[2017-12-15] MEDS: Aldactone 25 MG PO SCH ×2 (09:23→17:40)
[2017-12-15] MEDS: Trandate 100 MG PO SCH ×2 (09:24→21:34)
[2017-12-15] MEDS: Catapres 0.1 MG PO SCH ×2 (09:24→21:34)
[2017-12-15] MEDS: Zestril 20 MG PO SCH ×2 (09:24→21:35)
[2017-12-15] MEDS: Ecotrin 325 MG PO SCH (09:24)
[2017-12-15] MEDS: hydroDIURIL 25 MG PO SCH (09:24)
--- NOTE | 2017-12-15 09:31 | CONS ---
CONSULT DATE: 12/14/2017 REASON FOR CONSULT: 1) Intractable/high blood pressure/accelerated hypertension. 2) Hypokalemia. HISTORY: Leif Brooks is a 47 year-old gentleman who presented to the emergency room complaining of headache and high blood pressure. The patient had not doctored for more than two years. He states that has had high blood pressure since his 20's. He has a very strong family history of blood pressure. The patient also had pain at the back of his head. The patient had MRI which was negative for any bleed or aneurysm. The patient was started on multiple antihypertensive still blood pressure was around 170 systolic. At the time of admission the blood pressure was around 250 systolic. Also the patient had been having low potassium level which was noted to be around 2.8 initially. The patient denies any hematuria at this time. He denies any weight gain. He denies any striae. In view of his uncontrolled blood pressure, a renal consultation was called. His creatinine was within normal limits. His CMP and glomerular filtration rate was more than 60 ml/minute. REVIEW OF SYSTEMS: The patient complains of headache, chest pain which is better. No blurry vision. No focal weakness. No leg swelling. No weight gain. No striae. No chronic use of nonsteroidal. Denies any history of alcohol abuse. He denies any history of smoking. He is on nonsteroidal in the form of ibuprofen. No bleeding from any orifices. No foamy urine. No hematuria. No flank pain. No vomiting. No diarrhea. No fall. No trauma. No skin rash. He states that he has some kind of allergy to dye which was used in 1976. All systems were reviewed in detail and pertinent mentioned here and in history of present illness which were negative. PAST MEDICAL HISTORY: Hypertension. PAST SURGICAL HISTORY: No major surgeries in the recent past. MEDICATIONS: Ibuprofen 800 mg t.i.d. before coming to the hospital. No other medications. ALLERGIES: DYE - DOES NOT APPEAR TO BE A TRUE ALLERGY. THE LAST TIME HE HAD SOME DYE WAS IN 1976. SOCIAL HISTORY: No history of alcohol abuse, tobacco abuse. 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 FAMILY HISTORY: Mother had at 74 because of hypertension, coronary artery disease and diabetes. Father had hypertension. He has a brother who had a bypass surgery. No history of renal problems in the family. PHYSICAL EXAMINATION: Revealed a gentleman who was lying in bed. Vital signs were noted. Blood pressure from 162 to 147. Pulse rate has been from 73 to 102. Saturating 94 to 97% on room air. Afebrile. Weight 101.3 pounds. HEENT: Normocephalic, atraumatic, slightly pale conjunctivae, nonicteric sclera. NECK: Supple. No JVD. CHEST: Clear to auscultation. No distress. CVS: S1, S2 normal. No rub or gallop. ABDOMEN: Soft, nontender. No organomegaly. EXTREMITIES: No cyanosis, clubbing or edema. SKIN: No skin rashes. Skin turgor normal. MUSCULOSKELETAL: No acute joint swelling, redness, nontender. NEUROLOGIC: Nonfocal exam. Alert, awake, oriented x3. LAB DATA AND TESTS: Labs were reviewed and pertinent labs were sodium level 122, potassium better at 3.6, bicarb level 29. Glucose 100. MRI of the head was reviewed. Bilateral periventricular demyelination was noted. No stroke or aneurysm was noted. ASSESSMENT: 1) HYPERTENSIVE EMERGENCY: Intractable hypertension. The patient has very strong family history but given his young age secondary causes of hypertension need to be excluded. His TSH levels were fine. Hemoglobin A1C levels were 5.3. The patient has hypertension since he was 20 years of age. There has been no recent weight gain and no striae. Secondary hypertension maybe hypokalemia and serum bicarbonate levels which have been at the higher end of normal. This points out to possible adrenal pathology versus renovascular hypertension. I will get CT scan of abdomen and pelvis with and without contrast to look at adrenal adenoma and at the same time I will also get CT angiogram done. Will check for renal artery stenosis. Aldosterone renin ratio has been sent. Since aldosterone renin has been sent we can order Spironolactone. We will titrate his blood pressure medication. We will discontinue Lopressor and start him on labetalol 300 mg b.i.d. We will start Spironolactone 25 mg b.i.d. We will continue present dose of clonidine, labetalol and hydrochlorothiazide. If possible we may taper down his planning in view of his young age. We will also follow any discrepancy in kidney size on CT scan. Some worsening of creatinine may have happened with proper control of blood pressure. The patient stated that he had some type of dye allergy. The last dye was in 1976 for IVP. It does not appear to be true allergy. Benefits, alternatives, risks of dye exposure were discussed. He was agreeable to CT scan with and without contrast. We will do Benadryl, Tylenol and Solu-Medrol prior to dye exposure. Also he is anxious. We will do Ativan 1 mg IV. 2) ELEVATED TROPONINS: The sales promotion coordinator consulted. 3) HEADACHE: Most likely because of accelerated hypertension/malignant hypertension. MRI was reviewed and no aneurysm. Will monitor for any proteinuria. We will follow the renal function closely. 4) HYPOKALEMIA: The cause of renovascular hypertension or adrenal pathology. Aldactone has been initiated. Cut back the fluids to 10 cc/hour. We will start potassium supplementation if potassium remains slow, monitor magnesium levels in the morning. I will closely follow the patient. All of his questions were answered.
[2017-12-15] MEDS ORDERED: Ativan 2 MG/1 ML VIAL IV ONE (12:00)
--- NOTE | 2017-12-15 13:25 | XRAY ---
Indication: Left parietal pain. High blood pressure. Abnormal MRI brain. Sagittal and axial MRI cervical spine performed without contrast using T1 and T2 weighted sequences. Comparison: None Sagittal images demonstrates normal cervical alignment. Mild multilevel degenerative disc desiccation signal with C6-C7 disc space narrowing. No acute fracture, subluxation, or abnormal bone marrow signal. Spinal cord is normal in course and caliber without signal abnormality. Normal appearing craniocervical junction. Axial images at the C2-C3 level negative for disc herniation, spinal canal, or foraminal stenosis. At the C3-C4 level, there is minimal right foraminal narrowing due to uncal spurring. No disc herniation, spinal canal, or left foraminal stenosis. At the C4-C5 level, there is right foraminal stenosis and left foraminal narrowing due to uncal spurring. No disc herniation or canal stenosis. At the C5-C6 level, there is bilateral foraminal stenosis due to uncal spurring. No disc herniation or canal stenosis. At the C6-C7 level, there is minimal broad-based disc osteophyte complex minimally effacing the thecal sac. Bilateral foraminal stenosis, right greater than left due to uncal spurring. No central disc herniation or canal stenosis. The C7-T1 level is unremarkable. Impression: 1. Multilevel degenerative disc disease detailed level by level, greatest extent at C6-C7. 2. Remaining MRI cervical spine is negative.
[2017-12-15] MEDS: TYLENOL 325 MG PO PRN ×2 (19:55→23:53)
[2017-12-16] MEDS: TYLENOL 325 MG PO PRN ×2 (03:58→18:10)
[2017-12-16 05:58] LABS: ANION GAP 12.1 MEQ/L (5-15); BLOOD UREA NITROGEN 18 mg/dL (9-20); CHLORIDE 103 mmol/L (98-107); Calcium 9.3 mg/dL (8.4-10.2); Carbon Dioxide 31 mmol/L (22-30); Creatinine 1 1.14 mg/dL (0.66-1.25); Glucose 112 mg/dL (74-106); Potassium 3.7 mmol/L (3.5-5.1); SODIUM 142 mmol/L (137-145)
--- NOTE | 2017-12-16 08:01 | PCM.NOTE ---
Date and Time: 12/16/17 0754 Subjective Assessment: Patient reports his left sided headache came back last night and then his blood pressure spiked up again. He denies any weakness in his arms or legs, no numbness or tingling. He would like to get up and walk around today. - Review of Systems Constitutional: No Symptoms Eyes: No Symptoms Ears, Nose, & Throat: No Symptoms Respiratory: No Symptoms Cardiac: No Symptoms Abdominal/Gastrointestinal: No Symptoms Genitourinary Symptoms: No Symptoms Musculoskeletal: No Symptoms Skin: No Symptoms Neurological: Headache Objective Exam General Appearance: no apparent distress, alert Neurologic Exam: alert, cooperative, normal mood/affect Skin Exam: normal color, warm, dry, No rash Respiratory Exam: normal breath sounds, lungs clear, No crackles/rales, No rhonchi, No wheezing Cardiovascular Exam: regular rate/rhythm, normal heart sounds, No murmur, No friction rub, No gallop Gastrointestinal/Abdomen Exam: soft, normal bowel sounds, No tenderness, No distention, No mass Extremity Exam: other (no c/c/e) OBJECTIVE DATA Vital Signs: Vital Signs - 24 hr Temp Pulse Resp BP Pulse Ox 12/16/17 07:26 98.7 F 74 18 175/106 97 12/16/17 03:57 97.5 F 72 18 172/106 98 12/16/17 00:00 98.4 F 80 16 168/106 96 12/15/17 20:00 98.2 F 74 19 187/106 98 12/15/17 15:55 98.0 F 75 18 165/90 97 12/15/17 11:21 98.5 F 83 18 176/92 95 Pain Assessment - Last Documented Pain Intensity 2 Pain Scale Used 0-10 Pain Scale Intake and Output: Intake & Output 12/14/17 12/15/17 12/16/17 12/17/17 06:59 06:59 06:59 06:59 Intake Total 3086 812 1755 Output Total 3000 1500 1550 Balance 86 -688 205 Weight 101.3 kg Lab Results: Lab Results-Last 24 Hours 12/15/17 12/15/17 12/16/17 Range/Units 11:21 11:30 05:24 ESR 4 (0-15) mm/hr Sodium 142 (137-145) mmol/L Potassium 3.7 (3.5-5.1) mmol/L Chloride 103 (98-107) mmol/L Carbon Dioxide 31 H (22-30) mmol/L Anion Gap 12.1 (5-15) MEQ/L BUN 18 (9-20) mg/dL Creatinine 1.14 (0.66-1.25) mg/dL Estimated GFR > 60.0 ML/MIN Glucose 112 H (74-106) mg/dL Calcium 9.3 (8.4-10.2) mg/dL TSH 3rd Generation 1.390 (0.47-4.68) mIU/L Radiology Exams: Radiology Procedures Category Date Time Status CTA ABD/PEL W AND/OR W/O CONTR [CT] Urgent Exams 12/14/17 18:33 Completed ECHO W/2D AND DOPPLER [US] Routine Exams 12/14/17 10:00 Draft MRI BRAIN W & W/O CONTRAST [MRI] Urgent Exams 12/14/17 08:36 Completed MRI C-SPINE W/O CONTRAST [MRI] Urgent Exams 12/15/17 11:20 Completed Multi-Disciplinary Progress Notes: Multi-Disciplinary Progress Notes 12/15/17 09:40 (created 12/15/17 15:43) Case Management Note by Marychuy Craig INDEPENDENT WITH ALL ADL'S. PLANNING TO RETURN HOME WITH TO PRE EPISODIC LEVEL OF FNX. WILL FOLLOW FOR ALL DC NEEDS. Initialized on 12/15/17 15:43 - END OF NOTE Assessment/Plan (1) Severe hypertension Current Visit: Yes Status: Acute Onset Date: ~12/12/17 Assessment & Plan: He is currently on multiple medications (clonidine 0.2 mg po bid, labetolol 300 mg po bid, lisinopril 20 mg po bid, HCTZ 25 mg). Will increase spironolactone from 25 mg bid to 50 mg bid. Still awaiting aldosterone/renin levels. He has other send outs as well. Trying to reach nephrology for follow up on their consultation. The banquet stewardess has paged twice now. There is also some room to increase the labetolol if needed as his HR is in the 70's. Code(s): I10 - ESSENTIAL (PRIMARY) HYPERTENSION (2) Headache Current Visit: Yes Status: Acute Onset Date: ~12/12/17 Assessment & Plan: Tele Neurology consult obtained. Consult note states they called Dr. Flores with those recommendations yesterday. Code(s): R51 - HEADACHE
[2017-12-16] MEDS: Catapres 0.1 MG PO SCH ×3 (09:37→21:05)
[2017-12-16] MEDS: Trandate 100 MG PO SCH ×2 (09:38→21:06)
[2017-12-16] MEDS: hydroDIURIL 25 MG PO SCH (09:38)
[2017-12-16] MEDS: Zestril 20 MG PO SCH ×2 (09:38→21:05)
[2017-12-16] MEDS: Aldactone 25 MG PO SCH ×2 (09:38→21:05)
[2017-12-16] MEDS: Ecotrin 325 MG PO SCH (09:38)
[2017-12-16] MEDS: BUSPAR 5 MG PO PRN (21:04)
[2017-12-16] MEDS: Sodium Chloride 0.9% W/ 20 mEq KCl/LITER 1,000 ML IV SCH (22:24)
[2017-12-17] MEDS: TYLENOL 325 MG PO PRN ×2 (03:36→08:21)
[2017-12-17] MEDS: BUSPAR 5 MG PO PRN ×2 (05:37→13:38)
[2017-12-17] MEDS: Catapres 0.1 MG PO SCH ×2 (05:38→13:39)
[2017-12-17 05:53] LABS: ANION GAP 12.3 MEQ/L (5-15); BLOOD UREA NITROGEN 19 mg/dL (9-20); CHLORIDE 102 mmol/L (98-107); Calcium 9.8 mg/dL (8.4-10.2); Carbon Dioxide 32 mmol/L (22-30); Creatinine 1 1.22 mg/dL (0.66-1.25); Glucose 114 mg/dL (74-106); Potassium 4.2 mmol/L (3.5-5.1); SODIUM 142 mmol/L (137-145)
--- NOTE | 2017-12-17 07:46 | PCM.NOTE ---
Date and Time: 12/17/1745 Subjective Assessment: patient feeling frustrated, bp still running high. headache returned 2 nights ago when BP spiked high. Objective Exam General Appearance: no apparent distress, alert Skin Exam: normal color, warm, dry Respiratory Exam: normal breath sounds, lungs clear, No respiratory distress Cardiovascular Exam: regular rate/rhythm, normal heart sounds Gastrointestinal/Abdomen Exam: soft, No tenderness, No mass Extremity Exam: normal inspection, normal range of motion OBJECTIVE DATA Vital Signs: Vital Signs - 24 hr Temp Pulse Resp BP Pulse Ox 12/17/17 07:35 98.7 F 71 18 175/112 98 12/17/17 04:00 98.6 F 68 17 181/106 98 12/16/17 23:57 98.9 F 73 18 175/97 98 12/16/17 20:00 98.5 F 70 18 197/117 97 12/16/17 16:00 97.7 F 72 18 184/114 96 12/16/17 10:59 71 163/93 12/16/17 10:58 98.0 F 71 18 163/93 96 Pain Assessment - Last Documented Pain Intensity 2 Pain Scale Used 0-10 Pain Scale Intake and Output: Intake & Output 12/14/17 12/15/17 12/16/17 12/17/17 11:59 11:59 11:59 11:59 Intake Total 3086 812 1515 1037 Output Total 2650 900 1250 2650 Balance 436 -88 265 -1613 Weight 101.3 kg Lab Results: Lab Results-Last 24 Hours 12/14/17 12/15/17 12/17/17 Range/Units 05:00 05:30 05:05 Sodium 142 (137-145) mmol/L Potassium 4.2 (3.5-5.1) mmol/L Chloride 102 (98-107) mmol/L Carbon Dioxide 32 H (22-30) mmol/L Anion Gap 12.3 (5-15) MEQ/L BUN 19 (9-20) mg/dL Creatinine 1.22 (0.66-1.25) mg/dL Estimated GFR > 60.0 ML/MIN Glucose 114 H (74-106) mg/dL Calcium 9.8 (8.4-10.2) mg/dL C-Reactive Prot, Quant 2.84 (0.00-10.00) mg/L Total Cortisol 6.7 (4.0-25.0) mcg/dL SUDARSHAN IgG Screen Pending RPR Titer Add Testing Pending Lyme IgG (Western Blot) Pending Lyme IgM (Western Blot) Pending Ref Test Specimen Type Not Reportable Radiology Exams: Radiology Procedures Category Date Time Status MRI C-SPINE W/O CONTRAST [MRI] Urgent Exams 12/15/17 11:20 Completed Multi-Disciplinary Progress Notes: Multi-Disciplinary Progress Notes 12/16/17 12:42 Case Management Note by Jemima Villatoro PATIENT HAS BEEN PUT ON PRESUMPTIVE ELIGIBILITY INSURANCE AND THIS WILL COVER MEDICATION WELL TRANSPORTATION FOR HIS CARE WHEN HE IS RELEASED. Initialized on 12/16/17 12:42 - END OF NOTE 12/16/17 11:00 (created 12/16/17 11:27) Case Management Note by Marychuy Craig VISITED WITH PT AND REVIEWED DISCHARGE PLAN. CONTINUES TO DECLINE NEEDS ON DISCHARGE. INDEPENDENT WITH ALL ADL'S. PLAN TO RETURN HOME TO PRE EPISODIC LEVEL OF [place]. REPORTS THAT THEY HAVE ADJUSTED BP MEDS AGAIN BECAUSE HIS BLOOD PRESSURE IS UP AGAIN. DENIES ADDNL NEEDS AT PRESENT. WILL FOLLOW. Initialized on 12/16/17 11:27 - END OF NOTE 12/16/17 10:05 Case Management Note by Marychuy Craig DISCHARGE PLAN REVIEWED, PLANNING TO RETURN HOME WITH TO PRE EPISODIC LEVEL OF FN[place]. NO ADDNL NEEDS IDENTIFIED AT PRESENT. WILL FOLLOW FOR ALL DC NEEDS. Initialized on 12/16/17 10:05 - END OF NOTE Assessment/Plan (1) Malignant hypertension Current Visit: Yes Status: Acute Onset Date: ~12/12/17 Assessment & Plan: add hydralazine 100mg tid, continue labetalol, spironolactone, hctz and clonidine as ordered. Code(s): I10 - ESSENTIAL (PRIMARY) HYPERTENSION (2) Headache Current Visit: Yes Status: Acute Onset Date: ~12/12/17 Code(s): R51 - HEADACHE (3) Elevated troponin Current Visit: Yes Status: Acute Onset Date: ~12/12/17 Code(s): R74.8 - ABNORMAL LEVELS OF OTHER SERUM ENZYMES
[2017-12-17] MEDS: Apresoline 25 MG TABLET PO SCH ×2 (08:19→13:40)
[2017-12-17] MEDS: Ecotrin 325 MG PO SCH (08:20)
[2017-12-17] MEDS: Aldactone 25 MG PO SCH (08:20)
[2017-12-17] MEDS: Trandate 100 MG PO SCH (08:20)
[2017-12-17] MEDS: hydroDIURIL 25 MG PO SCH (08:21)
[2017-12-17] MEDS: Zestril 20 MG PO SCH (08:25)
[2017-12-17 14:51] LABS: RPR with Quantitation Non Reactive (Non Reactive)
--- NOTE | 2017-12-17 15:11 | PCM.DS ---
Discharge Summary Date of Admission: 12/12/17 00:23 Admitting Physician: DEMETRIUS JONES Consults: Consults on Case 12/12/17 00:31 Consult Cardiology ROUTINE 12/13/17 08:58 Consult Nephrology ROUTINE 12/15/17 07:14 Consult Neurology ROUTINE 12/15/17 07:20 Consult Cardiology ROUTINE Primary Care Provider: PHOEBE SUAREZ Allergies Allergies Iodinated Contrast- Oral and IV Dye [Iodinated Contrast Media - IV Dye] Allergy (Mild, Verified 05/02/16 03:15) [facility] Summary - Hospital Course Hospital Course: patient was admitted with headache and malignant hypertension. was seen by neprhology, workup for secondary causes has been negative although renin/ aldosterone levels are pending. bp is better controlled at this time on current regimen. had elevated troponin but no chest pain etc. echo showed minimally decreased EF, MRI brain showed hyperdense regions and r/o MS per radiology, neuro consult suspects hypertensive sclerosis which fits picture. patient has been off of meds due to lack of health insurance for around 2 years now. - Vitals & Intake/Output Vital Signs: Vital Signs Temperature 98.1 F 12/17/17 12:00 Pulse Rate 64 12/17/17 12:00 Respiratory Rate 16 12/17/17 12:00 Blood Pressure 144/86 12/17/17 12:00 O2 Sat by Pulse Oximetry 96 12/17/17 12:00 Intake & Output: Intake & Output 12/15/17 12/16/17 12/17/17 12/18/17 11:59 11:59 11:59 11:59 Intake Total 812 1515 1037 Output Total 900 1250 7536 456 Balance -88 235 -6814 -140 - Lab Result Diagrams: 12/15/17 05:13 12/17/17 05:05 Lab Results-Last 24 Hrs: Lab Results-Last 24 Hours 12/14/17 12/15/17 12/17/17 Range/Units 05:00 05:30 05:05 Sodium 142 (137-145) mmol/L Potassium 4.2 (3.5-5.1) mmol/L Chloride 102 (98-107) mmol/L Carbon Dioxide 32 H (22-30) mmol/L Anion Gap 12.3 (5-15) MEQ/L BUN 19 (9-20) mg/dL Creatinine 1.22 (0.66-1.25) mg/dL Estimated GFR > 60.0 ML/MIN Glucose 114 H (74-106) mg/dL Calcium 9.8 (8.4-10.2) mg/dL C-Reactive Prot, Quant 2.84 (0.00-10.00) mg/L Total Cortisol 6.7 (4.0-25.0) mcg/dL SUDARSHAN IgG Screen Pending RPR Titer Add Testing Pending Lyme IgG (Western Blot) Pending Lyme IgM (Western Blot) Pending Ref Test Specimen Type Not Reportable - Procedures and Test Procedures and Tests throughout Hospitalization: Therapy Orders & Screens 12/12/17 09:00 EKG ROUTINE Comment: Call result Diagnosis: hypertension 12/12/17 09:45 EKG STAT Comment: Diagnosis: hypertension Discharge Exam General Appearance: no apparent distress, alert Skin Exam: normal color, warm, dry Eye Exam: PERRL, EOMI, eyes nml inspection Respiratory Exam: normal breath sounds, lungs clear, No respiratory distress Cardiovascular Exam: regular rate/rhythm, normal heart sounds Gastrointestinal/Abdomen Exam: soft, No tenderness, No mass Extremity Exam: normal inspection, normal range of motion Final Diagnosis/Problem List - Final Discharge Diagnosis/Problem (1) Malignant hypertension Current Visit: Yes Status: Acute Onset Date: ~12/12/17 Assessment & Plan: well controlled at this time (2) Headache Current Visit: Yes Status: Acute Onset Date: ~12/12/17 Assessment & Plan: related to htn, no acute pathology identified. (3) Elevated troponin Current Visit: Yes Status: Acute Onset Date: ~12/12/17 - Discharge Disposition: Home, Self-Care Condition: Stable Prescriptions: New Spironolactone [Aldactone] 50 mg PO BID #60 tablet Clonidine HCl 0.1 mg [Catapres 0.1 MG] 3 tab PO TID #270 tablet Hydralazine HCl 100 mg PO TID #90 tablet Hydrochlorothiazide 25 mg [hydroDIURIL 25 MG] 25 mg PO QAM #30 tablet Labetalol HCl [Trandate] 300 mg PO TID #90 tablet Lisinopril 20 mg [Zestril 20 MG] 20 mg PO BID #60 tablet Follow up with: PHOEBE SUAREZ MD [Primary Care Provider] - 1 Week KERRY OLIVO [ACTIVE STAFF] - 12/29/17 3:30 pm FRITZ BROWNING [CONSULTING PHYSICIAN] - 12/28/17 1:20 pm (Follow up at [facility] )
[2017-12-17 16:07] VITALS: BP 143/87; PULSE 62; O2SAT 98
[2017-12-17 20:37] LABS: ANA Pattern Interp Detail See Result Note:; LYME TOTAL WB TOTAL 0.09 index (0.00-0.90)
== END 2017-12-17 16:45 | disposition home or self-care (01) | DRG 305 ==
LOC: ED 21:33 → ICU 12-12 00:23 → MED SURG 12-12 17:33
PROVIDERS: ADMIT Internal Medicine; ATTEND Family Medicine
DX: I10 Essential (primary) hypertension (principal); I16.1 Hypertensive emergency; R51 Headache; E87.6 Hypokalemia; R74.8 Abnormal levels of other serum enzymes; R73.9 Hyperglycemia, unspecified
CPT/HCPCS: 36000; 36415; 70450; 70553; 71046; 72141; 74174; 80048; 80053; 80307; 81002; 82088; 82533; 82570; 83036; 83735; 84156; 84244; 84443; 84484; 85025; 85027; 85610; 85652; 86038; 86140; 86592; 86593; 86617; 86618; 86780; 93005; 93306; 96374; 99285; J0360; J2060; J2270; J2405; J2920; A9270-GY

== ENCOUNTER 2017-12-20 17:19 | Observation (INO) | payer OTHER ==
--- NOTE | 2017-12-20 17:56 | ERPHSYRPT ---
- History of Present Illness Time Seen by Provider: 12/20/17 17:43 Source: patient, family Exam Limitations: no limitations Patient Subjective Stated Complaint: pt reports having low blood pressure at home today. reports his bp was " 50 over something" reports taking it just prior to arrival and it was 94/50. pt reports being hospitalized recently for high blood pressure and was discharged on the 5th. states he has felt tired and weak ever since. pt states "i feel like i can't keep my eyes open" Triage Nursing Assessment: pt is aox3, pt appears drowsy but answers all questions appropriately, pupils perrl, resps easy and non labored, radial pulses are strong and equal. pt moves all extremities, sensation is intact. hand wood heel attacher are strong and equal. Physician History: 47-year-old white male who was recently admitted secondary to hypertensive urgency and was recently been placed on antihypertensives. Brought by his with complaint that the patient has been going low on his blood pressure. He states that sometimes when he stands up he'll see spots. She states that his blood pressure was 95 systolic at home. Patient has not had any fevers he is not vomiting, Past medical history includes hypercholesterolemia, high blood pressure,, Past surgical history includes orthopedic surgery, left collarbone fracture, fracture left arm, bone apparently was taken out of the patient's hip and placed in his wrist, Timing/Duration: other (patient has been having symptoms for approximatley 1 week , worse today) Severity: moderate Modifying Factors: Improves With: other (patient recently placed on several antihypertensives) Associated Symptoms: weakness, other (see spots when he stands up), No nausea, No vomiting, No abdominal pain, No shortness of breath, No heartburn, No diaphoresis, No cough, No chills, No chest pain, No fever, No headaches, No loss of appetite, No malaise, No rash, No syncope, No seizure Allergies/Adverse Reactions: Iodinated Contrast- Oral and IV Dye [Iodinated Contrast Media - IV Dye] Allergy (Mild, Verified 12/20/17 17:33) Hives Hx Tetanus, Diphtheria Vaccination/Date Given: No Hx Influenza Vaccination/Date Given: No Hx Pneumococcal Vaccination/Date Given: No Immunizations Up to Date: Yes - Review of Systems Constitutional: Weakness, Other (see spots occasionally when he stands up), No Fever, No Chills Eyes: No Symptoms Ears, Nose, & Throat: No Symptoms Respiratory: No Cough, No Dyspnea Cardiac: No Chest Pain, No Edema, No Syncope Abdominal/Gastrointestinal: No Abdominal Pain, No Nausea, No Vomiting, No Diarrhea Genitourinary Symptoms: No Dysuria Musculoskeletal: No Back Pain, No Neck Pain Skin: No Rash Neurological: No Dizziness, No Focal Weakness, No Sensory Changes Psychological: No Symptoms Endocrine: No Symptoms - Past Medical History Pertinent Past Medical History: Yes Neurological History: No Pertinent History ENT History: No Pertinent History Cardiac History: High Cholesterol, Hypertension Respiratory History: No Pertinent History Endocrine Medical History: No Pertinent History Musculoskeletal History: No Pertinent History GI Medical History: No Pertinent History History: No Pertinent History Psycho-Social History: No Pertinent History Male Reproductive Disorders: No Pertinent History - Past Surgical History Past Surgical History: Yes Neuro Surgical History: No Pertinent History Cardiac: No Pertinent History Respiratory: No Pertinent History Gastrointestinal: No Pertinent History Genitourinary: No Pertinent History Musculoskeletal: Orthopedic Surgery Male Surgical History: No Pertinent History Other Surgical History: L collar bone, compound fx L arm, bone out of hip and placed in wrist - Social History Smoking Status: Never smoker Exposure to second hand smoke: No Drug Use: none Patient Lives Alone: No - Nursing Vital Signs Nursing Vital Signs: Initial Vital Signs Temperature 98.8 F 12/20/17 17:20 Pulse Rate 70 12/20/17 17:20 Respiratory Rate 18 12/20/17 17:20 Blood Pressure 111/64 12/20/17 17:20 O2 Sat by Pulse Oximetry 95 12/20/17 17:20 Pain Scale Pain Intensity 0 - Physical Exam General Appearance: no apparent distress, alert Eye Exam: PERRL/EOMI, eyes nml inspection Ears, Nose, Throat Exam: normal ENT inspection, TMs normal, pharynx normal, moist mucous membranes Neck Exam: normal inspection, non-tender, supple, full range of motion Respiratory Exam: normal breath sounds, lungs clear, No respiratory distress Cardiovascular Exam: regular rate/rhythm, normal heart sounds, normal peripheral pulses Gastrointestinal/Abdomen Exam: soft, normal bowel sounds, No tenderness, No mass Back Exam: normal inspection, normal range of motion, No CVA tenderness, No vertebral tenderness Extremity Exam: normal inspection, normal range of motion, pelvis stable Neurologic Exam: alert, oriented x 3, cooperative, shaker out II-XII nml as tested, normal mood/affect, nml cerebellar function, nml station & gait, sensation nml, No motor deficits, No sensory deficit, No disoriented, No confusion, No agitation, No uncooperative, No intoxicated appearance, No depressed mood/affect , No motor weakness, No facial droop, No slurred speech, No aphasia, No dysarthria, No abnormal shaker out II-XII Skin Exam: normal color, warm, dry, No rash Lymphatic Exam: No adenopathy SpO2 Interpretation: normal (95%) SpO2: 95 - Course Nursing assessment & vital signs reviewed: Yes EKG Interpreted by Me: RATE (68 bpm), Sinus Rhythm, Left Holcomb Deviation, Other ( EKG: Sinus rhythm, 68 bpm, left axis deviation, no acute ST or T wave changes noted) Ordered Tests: Active Orders 24 hr Category Date Time Status EKG-ER Only STAT Care 12/20/17 17:49 Active IV Insertion STAT Care 12/20/17 17:49 Active Orthostatic Vital Signs STAT Care 12/20/17 17:49 Active CBC W DIFF Stat Lab 12/20/17 17:20 Completed CMP Stat Lab 12/20/17 17:20 Completed Medication Summary Generic Name Dose Route Start Last Admin Trade Name Freq PRN Reason Stop Dose Admin Sodium Chloride 1,000 mls @ 999 mls/hr 12/20/17 18:20 12/20/17 18:36 Sodium Chloride 0.9% 1000 Ml IV 12/20/17 19:20 999 mls/hr .Q1H1M STA Administration Discontinued Medications Generic Name Dose Route Start Last Admin Trade Name Freq PRN Reason Stop Dose Admin Sodium Chloride Confirm 12/20/17 18:24 Sodium Chloride 0.9% 1000 Ml Administered 12/20/17 18:25 Dose 1,000 mls @ ud .ROUTE .STK-MED ONE Lab/Rad Data: Laboratory Result Diagrams 12/20/17 17:20 12/20/17 17:20 Laboratory Results 12/20/17 12/20/17 Range/Units 17:20 17:20 WBC 9.9 (4.0-10.5) K/mm3 RBC 4.73 (4.1-5.6) M/mm3 Hgb 14.3 (12.5-18.0) gm/dl Hct 41.5 L (42-50) % MCV 87.7 (78-100) fl MCH 30.2 (26-32) pg MCHC 34.5 (32-36) g/dl RDW 14.8 H (11.5-14.0) % Plt Count 230 (150-450) K/mm3 MPV 11.3 H (6-9.5) fl Gran % 70.4 H (36.0-66.0) % Eos # (Auto) 0.13 (0-0.5) Absolute Lymphs (auto) 1.83 (1.0-4.6) Absolute Monos (auto) 0.97 (0.0-1.3) Lymphocytes % 18.4 L (24.0-44.0) % Monocytes % 9.8 (0.0-12.0) % Eosinophils % 1.3 (0.00-5.0) % Basophils % 0.1 (0.0-0.4) % Absolute Granulocytes 7.00 H (1.4-6.9) Basophils # 0.01 (0-0.4) Sodium 137 (137-145) mmol/L Potassium 4.0 (3.5-5.1) mmol/L Chloride 101 (98-107) mmol/L Carbon Dioxide 21 L (22-30) mmol/L Anion Gap 19.5 H (5-15) MEQ/L BUN 72 H (9-20) mg/dL Creatinine 2.89 H (0.66-1.25) mg/dL Estimated GFR 25.0 ML/MIN Glucose 112 H (74-106) mg/dL Calcium 9.2 (8.4-10.2) mg/dL Total Bilirubin 0.90 (0.2-1.3) mg/dL AST 19 (17-59) U/L ALT 37 (0-50) U/L Alkaline Phosphatase 91 (38-126) U/L Serum Total Protein 7.3 (6.3-8.2) g/dL Albumin 4.6 (3.5-5.0) g/dL - Progress Progress: improved Progress Note: 12/20/17 18:46 48-year-old white male who was recently admitted secondary to extremely high blood pressures and hypertensive urgency. Patient was placed on antihypertensive medicines he states that since going home he's been feeling weak, he's been seeing spots when he stands up. His states that he had a low blood pressure today of 95 systolic. Patient has no vomiting no diarrhea no chest pain. Past medical history includes hypercholesterolemia, high blood pressure Patient is noted to have a normal blood pressure here orthostatics are stable patient does look a little pale in appearance. I've gone ahead and obtained a CBC CMP and EKG on the patient Patient's EKG normal sinus rhythm 68 bpm left axis deviation no acute ST or T wave changes patient's chemistry is remarkable for a BUN of 72 and a creatinine of 2.89 which are markedly elevated as compared to previous chemistries patient' s CBC is essentially stable patient's sodium is 137 potassium 4.0 chloride 101 bicarbonate 21 glucose is 112. Patient has received a 1 L of normal saline. I've discussed the patient's case with Dr. Cummings who is advanced solutions architect for the patient 's physician. Will go ahead and place patient on observation provide IV normal saline at 125 mL per hour[address] Will place patient on telemetry. Will have Dr. Cummings called for admitting orders patient is not to receive Poncho inhibitors. Will repeat CBC CMP in the morning. - Departure Time of Disposition: 18:49 Departure Disposition: Observation Clinical Impression: Dehydration Renal failure Qualifiers: Renal failure chronicity: acute Acute renal failure type: unspecified Qualified Code(s): N17.9 - Acute kidney failure, unspecified Condition: Fair Critical Care Time: No Referrals: PHOEBE SUAREZ MD [Primary Care Provider] -
[2017-12-20 17:59] LABS: BASOPHIL % 0.1 % (0.0-0.4); Basophil (Absolute #) 0.01 (0-0.4); Eosinophil % 1.3 % (0.00-5.0); Eosinophil (Absolute #) 0.13 (0-0.5); Granulocytes % 70.4 % (36.0-66.0); Hematocrit 41.5 % (42-50); Hemoglobin 14.3 gm/dl (12.5-18.0); Lymphocyte (Absolute #) 1.83 (1.0-4.6); Lymphocytes % 18.4 % (24.0-44.0); Mean Cell Volume 87.7 fl (78-100); Mean Corpuscular Hemoglobin 30.2 pg (26-32); Mean Corpuscular Hgb Concent. 34.5 g/dl (32-36); Mean Platelet Volume 11.3 fl (6-9.5); Monocyte (Absolute #) 0.97 (0.0-1.3); Monocytes % 9.8 % (0.0-12.0); Platelet Count 230 K/mm3 (150-450); Red Blood Count 4.73 M/mm3 (4.1-5.6); Red Cell Distribution Width 14.8 % (11.5-14.0); White Blood Count 9.9 K/mm3 (4.0-10.5)
[2017-12-20 18:20] LABS: ALBUMIN 4.6 g/dL (3.5-5.0); ANION GAP 19.5 MEQ/L (5-15); BILIRUBIN,TOTAL 0.9 mg/dL (0.2-1.3); Calcium 9.2 mg/dL (8.4-10.2); Creatinine 1 2.89 mg/dL (0.66-1.25); Total Protein 7.3 g/dL (6.3-8.2)
[2017-12-20] MEDS ORDERED: Sodium Chloride 0.9% 1000 ML 1,000 ML IV STA (18:20)
[2017-12-20] MEDS ORDERED: Sodium Chloride 0.9% 1000 ML 1,000 ML ONE (18:24)
[2017-12-20] MEDS: Sodium Chloride 0.9% 1000 ML 1,000 ML IV SCH (20:35)
[2017-12-20] MEDS ORDERED: APRESOLINE 20 MG/ML INJ IV PRN (21:32)
[2017-12-20] MEDS: Catapres 0.1 MG PO SCH (22:14)
[2017-12-20] MEDS: Trandate 100 MG PO SCH (22:14)
[2017-12-20] MEDS: TYLENOL 325 MG PO PRN (22:25)
[2017-12-21] MEDS: Sodium Chloride 0.9% 1000 ML 1,000 ML IV SCH ×3 (04:38→20:08)
[2017-12-21 06:37] LABS: BASOPHIL % 0.2 % (0.0-0.4); Basophil (Absolute #) 0.01 (0-0.4); Eosinophil (Absolute #) 0.17 (0-0.5); Granulocyte Absolute (ANC) 2.98 (1.4-6.9); Granulocytes % 53.2 % (36.0-66.0); Hematocrit 40.1 % (42-50); Hemoglobin 13.6 gm/dl (12.5-18.0); Lymphocyte (Absolute #) 1.81 (1.0-4.6); Lymphocytes % 32.3 % (24.0-44.0); Mean Cell Volume 88.9 fl (78-100); Mean Corpuscular Hemoglobin 30.2 pg (26-32); Mean Corpuscular Hgb Concent. 33.9 g/dl (32-36); Mean Platelet Volume 11.4 fl (6-9.5); Monocyte (Absolute #) 0.63 (0.0-1.3); Monocytes % 11.3 % (0.0-12.0); Platelet Count 203 K/mm3 (150-450); Red Blood Count 4.51 M/mm3 (4.1-5.6); Red Cell Distribution Width 14.6 % (11.5-14.0); White Blood Count 5.6 K/mm3 (4.0-10.5)
[2017-12-21 06:42] LABS: ALBUMIN 4.3 g/dL (3.5-5.0); ANION GAP 14.1 MEQ/L (5-15); BILIRUBIN,TOTAL 0.8 mg/dL (0.2-1.3); Calcium 9.1 mg/dL (8.4-10.2); Potassium 4.2 mmol/L (3.5-5.1); Total Protein 6.7 g/dL (6.3-8.2)
--- NOTE | 2017-12-21 08:59 | PCM.HP ---
History of Present Illness - Chief Complaint Chief Complaint: Dehydration History of Present Illness: is a 47 year old male who was recently admitted with malignant hypertension, he was discharged home and became tired and weak, bp was running low at home. he had been constipated as well but had a bowel movement this morning and feels better. dizziness has improved, no pain today. - Review of Systems Constitutional: No Fever, No Chills Respiratory: No Cough, No Short Of Breath Cardiac: No Chest Pain, No Edema, No Syncope Abdominal/Gastrointestinal: No Abdominal Pain, No Nausea, No Vomiting, No Diarrhea Skin: No Rash All Other Systems: Reviewed and Negative Medications & Allergies Home Medications: Home Medication List Acetaminophen 500 mg [Tylenol Extra Strength 500 mg] 500 mg PO Q6H PRN PRN 12/20/17 [History Confirmed 12/20/17] Hydralazine HCl 100 mg PO TID 12/20/17 [History Confirmed 12/20/17] Labetalol HCl 100 mg [Trandate 100 MG] 100 mg PO TID 12/20/17 [History Confirmed 12/20/17] Lisinopril 20 mg PO BID 12/20/17 [History Confirmed 12/20/17] Spironolactone [Aldactone] 50 mg PO BID 12/20/17 [History Confirmed 12/20/17] cloNIDine HCl [Clonidine HCl] 0.3 mg PO TID 12/20/17 [History Confirmed 12/20/17 ] hydroCHLOROthiazide [Hydrochlorothiazide] 25 mg PO DAILY 12/20/17 [History Confirmed 12/20/17] Allergies/Adverse Reactions: Allergies Allergy/AdvReac Type Severity Reaction Status Date / Time Iodinated Contrast- Oral and Allergy Mild Hives Verified 12/20/17 17:33 IV Dye [Iodinated Contrast Media - IV Dye] - Past Medical History Past Medical History: Yes Neurological History: No Pertinent History ENT History: No Pertinent History Cardiac History: High Cholesterol, Hypertension Respiratory History: No Pertinent History Endocrine Medical History: No Pertinent History Musculoskelatal History: No Pertinent History GI Medical History: No Pertinent History History: No Pertinent History Pyscho-Social History: No Pertinent History Male Reproductive Disorders: No Pertinent History - Past Surgical History Past Surgical History: Yes Neuro Surgical History: No Pertinent History Cardiac History: No Pertinent History Respiratory Surgery: No Pertinent History GI Surgical History: No Pertinent History Genitourinary Surgical Hx: No Pertinent History Musculskeletal Surgical Hx: Orthopedic Surgery Male Surgical History: No Pertinent History Other Surgical History: L collar bone fx, compound fx L arm, bone out of hip and placed in wrist, fx left 5th finger - Social History Smoking Status: Never smoker Exposure to second hand smoke: No Alcohol: Rarely Drug Use: none - Physical Exam Vital Signs: Vital Signs - 24 hr Temp Pulse Resp BP Pulse Ox 12/21/17 07:39 20 12/21/17 07:10 97.8 F 75 20 142/71 98 12/21/17 04:22 98.0 F 72 18 128/70 96 12/20/17 23:54 98.3 F 75 18 116/70 98 12/20/17 21:00 97 12/20/17 20:41 98.1 F 74 18 129/71 97 12/20/17 19:32 65 20 116/60 96 12/20/17 18:50 95 12/20/17 18:05 65 18 114/62 94 L 12/20/17 17:20 98.8 F 70 18 111/64 95 General Appearance: no apparent distress, alert Eye Exam: PERRL/EOMI, eyes nml inspection Respiratory Exam: normal breath sounds, lungs clear, No respiratory distress Cardiovascular Exam: regular rate/rhythm, normal heart sounds, normal peripheral pulses Gastrointestinal/Abdomen Exam: soft, normal bowel sounds, No tenderness, No mass Extremity Exam: normal inspection, normal range of motion, pelvis stable Skin Exam: normal color, warm, dry, No rash Results - Labs Lab/Micro Results: Lab Results-Last 24 Hours 12/20/17 12/20/17 12/21/17 Range/Units 17:20 17:20 05:30 WBC 9.9 5.6 (4.0-10.5) K/mm3 RBC 4.73 4.51 (4.1-5.6) M/mm3 Hgb 14.3 13.6 (12.5-18.0) gm/dl Hct 41.5 L 40.1 L (42-50) % MCV 87.7 88.9 (78-100) fl MCH 30.2 30.2 (26-32) pg MCHC 34.5 33.9 (32-36) g/dl RDW 14.8 H 14.6 H (11.5-14.0) % Plt Count 230 203 (150-450) K/mm3 MPV 11.3 H 11.4 H (6-9.5) fl Gran % 70.4 H 53.2 (36.0-66.0) % Eos # (Auto) 0.13 0.17 (0-0.5) Absolute Lymphs (auto) 1.83 1.81 (1.0-4.6) Absolute Monos (auto) 0.97 0.63 (0.0-1.3) Lymphocytes % 18.4 L 32.3 (24.0-44.0) % Monocytes % 9.8 11.3 (0.0-12.0) % Eosinophils % 1.3 3.0 (0.00-5.0) % Basophils % 0.1 0.2 (0.0-0.4) % Absolute Granulocytes 7.00 H 2.98 (1.4-6.9) Basophils # 0.01 0.01 (0-0.4) Sodium 137 (137-145) mmol/L Potassium 4.0 (3.5-5.1) mmol/L Chloride 101 (98-107) mmol/L Carbon Dioxide 21 L (22-30) mmol/L Anion Gap 19.5 H (5-15) MEQ/L BUN 72 H (9-20) mg/dL Creatinine 2.89 H (0.66-1.25) mg/dL Estimated GFR 25.0 ML/MIN Glucose 112 H (74-106) mg/dL Calcium 9.2 (8.4-10.2) mg/dL Total Bilirubin 0.90 (0.2-1.3) mg/dL AST 19 (17-59) U/L ALT 37 (0-50) U/L Alkaline Phosphatase 91 (38-126) U/L Serum Total Protein 7.3 (6.3-8.2) g/dL Albumin 4.6 (3.5-5.0) g/dL 12/21/17 Range/Units 05:30 WBC (4.0-10.5) K/mm3 RBC (4.1-5.6) M/mm3 Hgb (12.5-18.0) gm/dl Hct (42-50) % MCV (78-100) fl MCH (26-32) pg MCHC (32-36) g/dl RDW (11.5-14.0) % Plt Count (150-450) K/mm3 MPV (6-9.5) fl Gran % (36.0-66.0) % Eos # (Auto) (0-0.5) Absolute Lymphs (auto) (1.0-4.6) Absolute Monos (auto) (0.0-1.3) Lymphocytes % (24.0-44.0) % Monocytes % (0.0-12.0) % Eosinophils % (0.00-5.0) % Basophils % (0.0-0.4) % Absolute Granulocytes (1.4-6.9) Basophils # (0-0.4) Sodium 140 (137-145) mmol/L Potassium 4.2 (3.5-5.1) mmol/L Chloride 107 (98-107) mmol/L Carbon Dioxide 23 (22-30) mmol/L Anion Gap 14.1 (5-15) MEQ/L BUN 58 H (9-20) mg/dL Creatinine 2.00 H (0.66-1.25) mg/dL Estimated GFR 38.3 ML/MIN Glucose 102 (74-106) mg/dL Calcium 9.1 (8.4-10.2) mg/dL Total Bilirubin 0.80 (0.2-1.3) mg/dL AST 20 (17-59) U/L ALT 35 (0-50) U/L Alkaline Phosphatase 82 (38-126) U/L Serum Total Protein 6.7 (6.3-8.2) g/dL Albumin 4.3 (3.5-5.0) g/dL Assessment/Plan (1) Dehydration Current Visit: Yes Status: Acute Onset Date: ~12/21/17 Assessment & Plan: continue IV fluids and observe bp, pressures are ok at this time. will continue to hold some of his antihypertensives Code(s): E86.0 - DEHYDRATION (2) Renal failure Current Visit: Yes Status: Acute Onset Date: ~12/21/17 Qualifiers: Renal failure chronicity: acute Acute renal failure type: unspecified Qualified Code(s): N17.9 - Acute kidney failure, unspecified Assessment & Plan: improving with hydration, will continue to follow
[2017-12-21] MEDS: Trandate 100 MG PO SCH ×3 (10:40→21:59)
[2017-12-21] MEDS: Catapres 0.1 MG PO SCH ×3 (10:41→21:59)
[2017-12-21] MEDS: TYLENOL 325 MG PO PRN (19:49)
[2017-12-22] MEDS: Sodium Chloride 0.9% 1000 ML 1,000 ML IV SCH (03:31)
[2017-12-22] MEDS ORDERED: Ativan 2 MG/1 ML VIAL IV ONE (06:13)
[2017-12-22] MEDS ORDERED: Sodium Chloride 0.9% 1000 ML 1,000 ML IV SCH (06:53)
[2017-12-22] MEDS: Trandate 100 MG PO SCH ×3 (07:52→21:38)
[2017-12-22] MEDS: Catapres 0.1 MG PO SCH ×4 (07:52→21:39)
[2017-12-22 08:45] LABS: Hematocrit 43.1 % (42-50); Hemoglobin 14.9 gm/dl (12.5-18.0); Mean Cell Volume 87.8 fl (78-100); Mean Corpuscular Hemoglobin 30.3 pg (26-32); Mean Corpuscular Hgb Concent. 34.6 g/dl (32-36); Mean Platelet Volume 11.1 fl (6-9.5); Platelet Count 209 K/mm3 (150-450); Red Blood Count 4.91 M/mm3 (4.1-5.6); Red Cell Distribution Width 14.2 % (11.5-14.0); White Blood Count 5.7 K/mm3 (4.0-10.5)
[2017-12-22 08:51] LABS: ANION GAP 16.1 MEQ/L (5-15); BLOOD UREA NITROGEN 33 mg/dL (9-20); CHLORIDE 110 mmol/L (98-107); Calcium 9.7 mg/dL (8.4-10.2); Carbon Dioxide 22 mmol/L (22-30); Creatinine 1 1.21 mg/dL (0.66-1.25); Glucose 93 mg/dL (74-106); Potassium 4.3 mmol/L (3.5-5.1); SODIUM 144 mmol/L (137-145)
[2017-12-22] MEDS ORDERED: Ambien 10 MG PO PRN (08:58)
[2017-12-22] MEDS ORDERED: Klonopin 0.5 MG PO PRN (08:58)
--- NOTE | 2017-12-22 09:01 | PCM.NOTE ---
Date and Time: 12/22/17858 Subjective Assessment: He had an episode of anxiety overnight last night. His BP was up to 200 systolic last night as well. He states if he's going to stay in the hospital he needs something for anxiety. Was taking buspar prn at last admission. Denies CP or SOB. Objective Exam General Appearance: mild distress (xious), alert Neurologic Exam: oriented x 3, cooperative Skin Exam: normal color, warm, dry, No rash Ears, Nose, Throat Exam: moist mucous membranes Neck Exam: normal inspection Respiratory Exam: normal breath sounds, lungs clear, No crackles/rales, No rhonchi, No wheezing Cardiovascular Exam: regular rate/rhythm, normal heart sounds, No murmur Extremity Exam: normal inspection, No pedal edema OBJECTIVE DATA Vital Signs: Vital Signs - 24 hr Temp Pulse Resp BP Pulse Ox 12/22/17 07:55 20 12/22/17 06:57 97.9 F 76 20 200/98 97 12/22/17 04:00 98 F 68 18 208/119 97 12/22/17 00:00 98.6 F 72 20 176/101 98 12/21/17 21:00 98 12/21/17 20:00 98.1 F 74 18 176/104 98 12/21/17 16:09 97.8 F 74 20 166/100 98 12/21/17 16:00 20 12/21/17 12:12 138/98 12/21/17 11:51 20 12/21/17 11:23 20 98 Pain Assessment - Last Documented Pain Intensity 4 Pain Scale Used 0-10 Pain Scale Intake and Output: Intake & Output 12/19/17 12/20/17 12/21/17 12/22/17 11:59 11:59 11:59 11:59 Intake Total 1763 2566 Output Total 1250 2500 Balance 513 66 Weight 101.3 kg 97.8 kg Lab Results: Lab Results-Last 24 Hours 12/22/17 12/22/17 Range/Units 08:30 08:30 WBC 5.7 (4.0-10.5) K/mm3 RBC 4.91 (4.1-5.6) M/mm3 Hgb 14.9 (12.5-18.0) gm/dl Hct 43.1 (42-50) % MCV 87.8 (78-100) fl MCH 30.3 (26-32) pg MCHC 34.6 (32-36) g/dl RDW 14.2 H (11.5-14.0) % Plt Count 209 (150-450) K/mm3 MPV 11.1 H (6-9.5) fl Sodium 144 (137-145) mmol/L Potassium 4.3 (3.5-5.1) mmol/L Chloride 110 H (98-107) mmol/L Carbon Dioxide 22 (22-30) mmol/L Anion Gap 16.1 H (5-15) MEQ/L BUN 33 H (9-20) mg/dL Creatinine 1.21 (0.66-1.25) mg/dL Estimated GFR > 60.0 ML/MIN Glucose 93 (74-106) mg/dL Calcium 9.7 (8.4-10.2) mg/dL Assessment/Plan (1) Hypertension Current Visit: Yes Status: Acute Qualifiers: Hypertension type: essential hypertension Qualified Code(s): I10 - Essential (primary) hypertension Assessment & Plan: Increasing clonidine to 0.2mg po TID. Will leave labetalol at current dose for now with 50mg po TID (HR in the 60s and 70s). Code(s): I10 - ESSENTIAL (PRIMARY) HYPERTENSION (2) Dehydration Current Visit: Yes Status: Acute Onset Date: ~12/21/17 Assessment & Plan: rechecking labs. Code(s): E86.0 - DEHYDRATION (3) Renal failure Current Visit: Yes Status: Acute Onset Date: ~12/21/17 Qualifiers: Renal failure chronicity: acute Acute renal failure type: unspecified Qualified Code(s): N17.9 - Acute kidney failure, unspecified
[2017-12-22] MEDS: TYLENOL 325 MG PO PRN (20:04)
[2017-12-22] MEDS: BUSPAR 5 MG PO PRN (21:40)
[2017-12-23 07:22] VITALS: PULSE 87; O2SAT 98
[2017-12-23] MEDS: Catapres 0.1 MG PO SCH (09:28)
[2017-12-23] MEDS: Trandate 100 MG PO SCH (09:28)
[2017-12-23] MEDS: BUSPAR 5 MG PO PRN (09:28)
--- NOTE | 2017-12-23 10:56 | PCM.DS ---
Discharge Summary Date of Admission: 12/20/17 20:16 Admitting Physician: PHOEBE SUAREZ Primary Care Provider: PHOEBE SUAREZ Allergies Allergies Iodinated Contrast- Oral and IV Dye [Iodinated Contrast Media - IV Dye] Allergy (Mild, Verified 12/20/17 17:33) [facility] Summary - Hospital Course Hospital Course: patient was recently admitted with hypertensive emergency and went hope and developed hypotension and returned, found to have elevated bun/cr, this has resolved with hydration. discussed with Dr Hernandez, need to try and slowly lower his bp. patient desires to go home with med adjustments and will f/u in a week. he does have severe anxiety in the hospital which complicates controlling his bp here - Vitals & Intake/Output Vital Signs: Vital Signs Temperature 97.8 F 12/23/17 07:21 Pulse Rate 87 12/23/17 07:21 Respiratory Rate 20 12/23/17 08:00 Blood Pressure 190/100 12/23/17 07:21 O2 Sat by Pulse Oximetry 98 12/23/17 07:21 Intake & Output: Intake & Output 12/20/17 12/21/17 12/22/17 12/23/17 11:59 11:59 11:59 11:59 Intake Total 1763 2566 5391 Output Total 1250 2500 1500 Balance 290 95 5527 Weight 101.3 kg 97.8 kg 99.1 kg - Lab Result Diagrams: 12/22/17 08:30 12/22/17 08:30 Discharge Exam General Appearance: no apparent distress, alert Respiratory Exam: normal breath sounds Cardiovascular Exam: regular rate/rhythm, normal heart sounds Gastrointestinal/Abdomen Exam: soft, No tenderness, No mass Extremity Exam: normal inspection, normal range of motion Final Diagnosis/Problem List - Final Discharge Diagnosis/Problem (1) Dehydration Current Visit: Yes Status: Acute Onset Date: ~12/21/17 (2) Renal failure Current Visit: Yes Status: Acute Onset Date: ~12/21/17 (3) Hypertension Current Visit: Yes Status: Acute Onset Date: ~12/22/17 - Discharge Disposition: Home, Self-Care Condition: Good Prescriptions: New Clonidine HCl 0.1 mg [Catapres 0.1 MG] 0.1 mg PO TID #90 tablet Labetalol HCl 100 mg [Trandate 100 MG] 50 mg PO TID #30 tablet Continue hydroCHLOROthiazide [Hydrochlorothiazide] 25 mg PO DAILY Spironolactone [Aldactone] 50 mg PO BID Lisinopril 20 mg PO BID Acetaminophen 500 mg [Tylenol Extra Strength 500 mg] 500 mg PO Q6H PRN PRN PRN Reason: Pain Discontinued Labetalol HCl 100 mg [Trandate 100 MG] 100 mg PO TID cloNIDine HCl [Clonidine HCl] 0.3 mg PO TID Hydralazine HCl 100 mg PO TID Additional Instructions: adjust meds as written per med reconciliation, f/u 1 week for bp recheck. Follow up with: PHOEBE SUAREZ MD [Primary Care Provider] - 1 Week
[2017-12-23 11:18] VITALS: BP 189/87
== END 2017-12-23 12:40 | disposition home or self-care (01) ==
LOC: ED 17:19 → MED SURG 20:16
PROVIDERS: ADMIT Family Medicine; ATTEND Family Medicine
DX: E86.0 Dehydration (principal); N19 Unspecified kidney failure; I12.9 Hypertensive chronic kidney disease with stage 1 through stage 4 chronic kidney disease, or unspecified chronic kidney disease; N18.9 Chronic kidney disease, unspecified
CPT/HCPCS: 36000; 36415; 80048; 80053; 85025; 85027; 93005; 93268; 96360; 99285; J0360; J2060; A9270-GY; G0378

== ENCOUNTER 2019-02-25 05:47 | Emergency (ER) | payer OTHER ==
[2019-02-25] MEDS ORDERED: Sodium Chloride 0.9% 1000 ML 1,000 ML IV STA (06:21)
--- NOTE | 2019-02-25 06:26 | ERPHSYRPT ---
- History of Present Illness Source: patient Exam Limitations: no limitations Patient Subjective Stated Complaint: Hypertension Triage Nursing Assessment: Patient ambulated back to ED and transferred self to bed. Patient A+O X3. Patient's skin pink, warm and dry. Patient complains of high blood pressure. Patient states he was at work and started feeling bad. 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 Patient denies chest pain or any pain, but has had numbness off and on down left arm. Patient's lungs clear a/p vijaya. Heart tones audible. No edema noted. Timing/Duration: today Severity: severe Modifying Factors: Improves With: other (was at work when this occured) Associated Symptoms: headaches, malaise, No nausea, No vomiting, No abdominal pain, No shortness of breath, No heartburn, No diaphoresis, No cough, No chills , No chest pain, No fever, No loss of appetite, No rash, No syncope, No seizure , No weakness Hx Tetanus, Diphtheria Vaccination/Date Given: No Hx Influenza Vaccination/Date Given: No Hx Pneumococcal Vaccination/Date Given: No Immunizations Up to Date: Yes <SAMANTA VICKERS - Last Filed: 02/25/19 07:00> <ALON PULIDO - Last Filed: 02/25/19 07:16> - History of Present Illness Time Seen by Provider: 02/25/19 06:20 Physician History: Patient was feeling bad his entire shift at work and was found to have had an elevated blood pressure of 190/120. (SAMANTA VICKERS) Allergies/Adverse Reactions: Iodinated Contrast Media [Iodinated Contrast Media - IV Dye] Allergy (Mild, Verified 02/25/19 05:54) Hives Home Medications: Lisinopril 40 mg PO DAILY 12/20/17 [History] hydroCHLOROthiazide [Hydrochlorothiazide] 25 mg PO DAILY 12/20/17 [History] Clonidine HCl 0.1 mg [Catapres 0.1 MG] 0.1 mg PO DAILY 02/25/19 [History] HydrALAzine HCL 25 MG TAB [Apresoline 25 MG TABLET] 1 tab PO BID PRN 02/25 [History] Nebivolol HCl [Bystolic] 1 tab PO DAILY 02/25/19 [History] - Review of Systems Constitutional: Lethargy, Malaise, No Fever, No Chills Eyes: No Eye Pain, No Photophobia, No Double Vision Ears, Nose, & Throat: No Ear Pain, No Epistaxis, No Mouth Swelling, No Throat Pain, No Throat Swelling Respiratory: No Cough, No Dyspnea Cardiac: No Chest Pain, No Edema, No Syncope Abdominal/Gastrointestinal: No Abdominal Pain, No Nausea, No Vomiting, No Diarrhea Genitourinary Symptoms: No Dysuria, No Hematuria, No Flank Pain Musculoskeletal: No Back Pain, No Neck Pain Skin: No Rash Neurological: Headache (resolved now), No Dizziness, No Focal Weakness, No Sensory Changes Psychological: No Symptoms Endocrine: No Symptoms Hematologic/Lymphatic: No Easy Bleeding, No Easy Bruising All Other Systems: Reviewed and Negative <SAMANTA VICKERS ELIZABETH - Last Filed: 02/25/19 07:00> - Past Medical History Pertinent Past Medical History: Yes Neurological History: No Pertinent History ENT History: No Pertinent History Cardiac History: High Cholesterol, Hypertension Respiratory History: No Pertinent History Endocrine Medical History: No Pertinent History Musculoskeletal History: No Pertinent History GI Medical History: No Pertinent History History: Other Psycho-Social History: No Pertinent History Male Reproductive Disorders: No Pertinent History Other Medical History: Decresed kidney function - Past Surgical History Past Surgical History: Yes Neuro Surgical History: No Pertinent History Cardiac: No Pertinent History Respiratory: No Pertinent History Gastrointestinal: No Pertinent History Genitourinary: No Pertinent History Musculoskeletal: Orthopedic Surgery Male Surgical History: No Pertinent History Other Surgical History: L collar bone fx, compound fx L arm, bone out of hip and placed in wrist, fx left 5th finger - Social History Smoking Status: Never smoker Exposure to second hand smoke: No Drug Use: none Patient Lives Alone: No <VARBALAJI CASTAÑEDAELHS ELIZABETH - Last Filed: 02/25/19 07:00> - Physical Exam General Appearance: no apparent distress, alert Eye Exam: PERRL/EOMI, eyes nml inspection Ears, Nose, Throat Exam: normal ENT inspection, TMs normal, pharynx normal, moist mucous membranes Neck Exam: normal inspection, non-tender, supple, full range of motion Respiratory Exam: normal breath sounds, lungs clear, No respiratory distress Cardiovascular Exam: regular rate/rhythm, normal heart sounds, normal peripheral pulses Gastrointestinal/Abdomen Exam: soft, normal bowel sounds, No tenderness, No mass Back Exam: normal inspection, normal range of motion, No CVA tenderness, No vertebral tenderness Extremity Exam: normal inspection, normal range of motion, pelvis stable Neurologic Exam: alert, oriented x 3, cooperative, normal mood/affect, nml cerebellar function, nml station & gait, sensation nml, No motor deficits Skin Exam: normal color, warm, dry, No rash Lymphatic Exam: No adenopathy SpO2: 99 <SAMANTA VICKERS ELIZABETH - Last Filed: 02/25/19 07:00> - Nursing Vital Signs Nursing Vital Signs: Initial Vital Signs Temperature 97.9 F 02/25/19 05:55 Pulse Rate 76 02/25/19 05:55 Respiratory Rate 20 02/25/19 05:55 Blood Pressure 177/107 02/25/19 05:55 O2 Sat by Pulse Oximetry 99 02/25/19 05:55 Pain Scale Pain Intensity 0 - Course EKG Interpreted by Me: RATE (68), Sinus Rhythm, NORMAL AXIS, NORMAL INTERVALS, NORMAL QRS, NORMAL ST-T, Other (no change in comparison to ECG [facility] 12/20/2017) - Radiology Exams Chest X-ray Interpretation: Interpreted by me, Reviewed by me, No Pneumonia, No Pneumothorax, Nml Heart Size, No Infiltrates, Nml Mediastinum <SAMANTA VICKERS ELIZABETH - Last Filed: 02/25/19 07:00> Ordered Tests: Active Orders 24 hr Category Date Time Status [place] STAT Care 02/25/19 06:21 Active EKG-ER Only STAT Care 02/25/19 06:21 Active IV Insertion STAT Care 02/25/19 06:21 Active CHEST 1 VIEW (PORTABLE) Stat Exams 02/25/19 06:41 Taken CBC W DIFF Stat Lab 02/25/19 06:34 Completed CK-Creatinine Phosphokinase Stat Lab 02/25/19 06:34 Completed CMP Stat Lab 02/25/19 06:34 Completed NT PRO BNP Stat Lab 02/25/19 06:34 Completed PROTIME WITH INR Stat Lab 02/25/19 06:34 Completed PTT Stat Lab 02/25/19 06:34 Completed TROPONIN Q3H Lab 02/25/19 06:34 Completed TROPONIN Q3H Lab 02/25/19 09:30 Ordered TROPONIN Q3H Lab 02/25/19 12:30 Ordered TROPONIN Q3H Lab 02/25/19 15:30 Ordered TROPONIN Q3H Lab 02/25/19 18:30 Ordered TSH [TSH, 3RD Generation] Stat Lab 02/25/19 06:34 Received Urine Triage Profile Stat Lab 02/25/19 07:00 Received Medication Summary Generic Name Dose Route Start Last Admin Trade Name Freq PRN Reason Stop Dose Admin Sodium Chloride 1,000 mls @ 999 mls/hr 02/25/19 06:21 02/25/19 06:42 Sodium Chloride 0.9% 1000 Ml IV 02/25/19 07:21 999 mls/hr .Q1H1M STA Administration Discontinued Medications Generic Name Dose Route Start Last Admin Trade Name Freq PRN Reason Stop Dose Admin Sodium Chloride Confirm 02/25/19 06:42 Sodium Chloride 0.9% 1000 Ml Administered 02/25/19 06:43 Dose 1,000 mls @ ud .ROUTE .STK-MED ONE Lab/Rad Data: Laboratory Result Diagrams 02/25/19 06:34 02/25/19 06:34 Laboratory Results 02/25/19 02/25/19 02/25/19 Range/Units 06:34 06:34 06:34 WBC (4.0-10.5) K/mm3 RBC (4.1-5.6) M/mm3 Hgb (12.5-18.0) gm/dl Hct (42-50) % MCV (78-100) fl MCH (26-32) pg MCHC (32-36) g/dl RDW (11.5-14.0) % Plt Count (150-450) K/mm3 MPV (6-9.5) fl Gran % (36.0-66.0) % Eos # (Auto) (0-0.5) Absolute Lymphs (auto) (1.0-4.6) Absolute Monos (auto) (0.0-1.3) Lymphocytes % (24.0-44.0) % Monocytes % (0.0-12.0) % Eosinophils % (0.00-5.0) % Basophils % (0.0-0.4) % Absolute Granulocytes (1.4-6.9) Basophils # (0-0.4) PT 11.1 (8.83-12.87) SECONDS INR 0.98 (0.8-3.0) APTT 32.7 (24.1-36.1) SECONDS Sodium 144 (137-145) mmol/L Potassium 4.1 (3.5-5.1) mmol/L Chloride 114 H (98-107) mmol/L Carbon Dioxide 22 (22-30) mmol/L Anion Gap 11.8 (5-15) MEQ/L BUN 19 (9-20) mg/dL Creatinine 1.47 H (0.66-1.25) mg/dL Estimated GFR 54.1 ML/MIN Glucose 90 (74-106) mg/dL Calcium 9.0 (8.4-10.2) mg/dL Total Bilirubin 0.40 (0.2-1.3) mg/dL AST 28 (17-59) U/L ALT 36 (0-50) U/L Alkaline Phosphatase 69 (38-126) U/L Creatine Kinase 151 (55-170) U/L Troponin I < 0.012 (0.000-0.034) ng/mL NT-Pro-B Natriuret Pep 60.8 (0-450) pg/mL Serum Total Protein 7.1 (6.3-8.2) g/dL Albumin 4.2 (3.5-5.0) g/dL 02/25/19 Range/Units 06:34 WBC 5.4 (4.0-10.5) K/mm3 RBC 4.23 (4.1-5.6) M/mm3 Hgb 13.1 (12.5-18.0) gm/dl Hct 39.5 L (42-50) % MCV 93.4 (78-100) fl MCH 31.0 (26-32) pg MCHC 33.2 (32-36) g/dl RDW 14.6 H (11.5-14.0) % Plt Count 172 (150-450) K/mm3 MPV 10.1 H (6-9.5) fl Gran % 49.1 (36.0-66.0) % Eos # (Auto) 0.21 (0-0.5) Absolute Lymphs (auto) 1.96 (1.0-4.6) Absolute Monos (auto) 0.55 (0.0-1.3) Lymphocytes % 36.2 (24.0-44.0) % Monocytes % 10.2 (0.0-12.0) % Eosinophils % 3.9 (0.00-5.0) % Basophils % 0.6 (0.0-0.4) % Absolute Granulocytes 2.66 (1.4-6.9) Basophils # 0.03 (0-0.4) PT (8.83-12.87) SECONDS INR (0.8-3.0) APTT (24.1-36.1) SECONDS Sodium (137-145) mmol/L Potassium (3.5-5.1) mmol/L Chloride (98-107) mmol/L Carbon Dioxide (22-30) mmol/L Anion Gap (5-15) MEQ/L BUN (9-20) mg/dL Creatinine (0.66-1.25) mg/dL Estimated GFR ML/MIN Glucose (74-106) mg/dL Calcium (8.4-10.2) mg/dL Total Bilirubin (0.2-1.3) mg/dL AST (17-59) U/L ALT (0-50) U/L Alkaline Phosphatase (38-126) U/L Creatine Kinase (55-170) U/L Troponin I (0.000-0.034) ng/mL NT-Pro-B Natriuret Pep (0-450) pg/mL Serum Total Protein (6.3-8.2) g/dL Albumin (3.5-5.0) g/dL <SAMANTA VICKERS - Last Filed: 02/25/19 07:00> <ALON PULIDO - Last Filed: 02/25/19 07:16> - Progress Progress Note: 02/25/19 07:01 Discussed the case with Dr Pulido, oncoming ED attending, and care transferred to Dr Pulido. Dr Pulido will determine final disposition of the patient after evaluation of laboratory, imaging results and patient. (SAMANTA VICKERS) 02/25/19 07:13 i re evaluated pt and reviewed labs. pt is stable for discharge. pt to follow up today with drs. smith and holly for further management (ALON PULIDO) <SAMANTA VICKERS - Last Filed: 02/25/19 07:00> - Departure Departure Disposition: Home Critical Care Time: No <ALON PULIDO - Last Filed: 02/25/19 07:16> - Departure Clinical Impression: Hypertensive urgency Condition: Stable Referrals: PHOEBE SMITH MD [Primary Care Provider] - Additional Instructions: call your primary doctor and practice advisor today to arrange for further management. discuss with them evaluation of your renal arteries. take your medications as prescribed.
[2019-02-25 06:40] VITALS: BP 150/96; PULSE 78
[2019-02-25 06:41] LABS: BASOPHIL % 0.6 % (0.0-0.4); Basophil (Absolute #) 0.03 (0-0.4); Eosinophil % 3.9 % (0.00-5.0); Eosinophil (Absolute #) 0.21 (0-0.5); Granulocyte Absolute (ANC) 2.66 (1.4-6.9); Granulocytes % 49.1 % (36.0-66.0); Hematocrit 39.5 % (42-50); Hemoglobin 13.1 gm/dl (12.5-18.0); Lymphocyte (Absolute #) 1.96 (1.0-4.6); Lymphocytes % 36.2 % (24.0-44.0); Mean Cell Volume 93.4 fl (78-100); Mean Corpuscular Hgb Concent. 33.2 g/dl (32-36); Mean Platelet Volume 10.1 fl (6-9.5); Monocyte (Absolute #) 0.55 (0.0-1.3); Monocytes % 10.2 % (0.0-12.0); Platelet Count 172 K/mm3 (150-450); Red Blood Count 4.23 M/mm3 (4.1-5.6); Red Cell Distribution Width 14.6 % (11.5-14.0); White Blood Count 5.4 K/mm3 (4.0-10.5)
[2019-02-25] MEDS ORDERED: Sodium Chloride 0.9% 1000 ML 1,000 ML ONE (06:42)
[2019-02-25 06:48] LABS: INR 0.98 (0.8-3.0); PROTIME 11.1 SECONDS (8.83-12.87)
[2019-02-25 06:51] LABS: PTT 32.7 SECONDS (24.1-36.1)
[2019-02-25 07:02] LABS: ALBUMIN 4.2 g/dL (3.5-5.0); ANION GAP 11.8 MEQ/L (5-15); BILIRUBIN,TOTAL 0.4 mg/dL (0.2-1.3); Creatinine 1 1.47 mg/dL (0.66-1.25); NT PRO BNP 60.8 pg/mL (0-450); Potassium 4.1 mmol/L (3.5-5.1); Total Protein 7.1 g/dL (6.3-8.2)
[2019-02-25 07:04] VITALS: O2SAT 99
--- NOTE | 2019-02-25 09:05 | XRAY ---
Indication: Hypertensive urgency. Comparison: December 11, 2017. Portable chest remains clear. Heart is not enlarged. Bony thorax intact again with mild scoliosis and old left clavicle fracture. No new/acute findings.
[2019-02-25 10:56] LABS: Amphetamine,Urine NEGATIVE (NEGATIVE); Barbiturate,Urine NEGATIVE (NEGATIVE); Benzodiazepine,Urine NEGATIVE (NEGATIVE); Cocaine,Urine NEGATIVE (NEGATIVE); Methadone,Urine NEGATIVE (NEGATIVE); Opiate,Urine NEGATIVE (NEGATIVE); PCP,Urine NEGATIVE (NEGATIVE); THC,Urine NEGATIVE (NEGATIVE)
== END 2019-02-25 07:44 | disposition home or self-care (01) ==
LOC: ED 05:47
DX: I16.0 Hypertensive urgency (principal)
CPT/HCPCS: 36000; 36415; 71045; 80053; 80307; 82550; 83880; 84443; 84484; 85025; 85610; 85730; 93005; 93041; 96360; 99284

== ENCOUNTER 2020-01-30 15:27 | Emergency (ER) | payer MEDICAID, OTHER ==
[2020-01-30] MEDS ORDERED: APRESOLINE 20 MG/ML INJ IV ONE (15:54)
[2020-01-30] MEDS ORDERED: APRESOLINE 20 MG/ML INJ ONE (15:58)
[2020-01-30 15:59] LABS: Absolute Neutrophil Ct (ANC) 3.89 (1.4-6.9); BASOPHIL % 0.4 % (0.0-0.4); Basophil (Absolute #) 0.03 (0-0.4); Eosinophil % 2.6 % (0.00-5.0); Eosinophil (Absolute #) 0.18 (0-0.5); Hematocrit 47.3 % (42-50); Hemoglobin 16.3 gm/dl (12.5-18.0); Lymphocyte (Absolute #) 2.12 (1.0-4.6); Lymphocytes % 31.1 % (24.0-44.0); Mean Cell Volume 88.2 fl (78-100); Mean Corpuscular Hemoglobin 30.4 pg (26-32); Mean Corpuscular Hgb Concent. 34.5 g/dl (32-36); Mean Platelet Volume 11.1 fl (7.5-11.0); Monocyte (Absolute #) 0.59 (0.0-1.3); Monocytes % 8.7 % (0.0-12.0); Neutrophil % 57.2 % (36.0-66.0); Platelet Count 218 K/mm3 (150-450); Red Blood Count 5.36 M/mm3 (4.1-5.6); Red Cell Distribution Width 14.2 % (11.5-14.0); White Blood Count 6.8 K/mm3 (4.0-10.5)
[2020-01-30 16:03] LABS: Appearance CLEAR (CLEAR); Bilirubin NEGATIVE (NEGATIVE); Blood NEGATIVE Ery/ul (0-5); Glucose NEGATIVE (NEGATIVE); Ketones NEGATIVE (NEGATIVE); Leukocyte Esterase NEGATIVE (NEGATIVE); Mucus SLIGHT /HPF (NEGATIVE); Nitrite NEGATIVE (NEGATIVE); Protein,Urine Dip NEGATIVE (Negative); Specific Gravity 1.025 (1.005-1.025); Urobilinogen NEGATIVE mg/dL (0-1)
[2020-01-30 16:06] LABS: ALBUMIN 4.9 g/dL (3.5-5.0); ALKALINE PHOSPHATASE 100 U/L (38-126); ANION GAP 12.1 MEQ/L (5-15); BLOOD UREA NITROGEN 13 mg/dL (9-20); CHLORIDE 109 mmol/L (98-107); Calcium 9.8 mg/dL (8.4-10.2); Carbon Dioxide 23 mmol/L (22-30); Creatinine 1 1.03 mg/dL (0.66-1.25); Glucose 152 mg/dL (74-106); Potassium 3.4 mmol/L (3.5-5.1); SGOT/AST 31 U/L (17-59); SGPT/ALT 44 U/L (0-50); SODIUM 140 mmol/L (137-145)
--- NOTE | 2020-01-30 16:21 | ERPHSYRPT ---
- History of Present Illness Source: patient Exam Limitations: no limitations Patient Subjective Stated Complaint: pt reports hypertension, states he is supposed to take blood pressure medications (lisinopril, HCTZ, bystolic, clonidine) but has been out for approx 6 months due to loss of insurance. pt reports headache to the left occiptal region for 2 weeks. reports his reading at home was 250/130. Triage Nursing Assessment: pt is aox3, pupils perrl, afebrile, resps easy and non labored, radial pulses strong and equal, pt tachycardic at this time, cap refill < 3 seconds, pt skin pink warm dry. pt ambulatory to cot at this time with no difficulties, pt appears in no distress. Severity: moderate Modifying Factors: Improves With: nothing Associated Symptoms: headaches, No shortness of breath, No chest pain, No syncope, No seizure, No weakness Hx Tetanus, Diphtheria Vaccination/Date Given: Yes Hx Influenza Vaccination/Date Given: No Hx Pneumococcal Vaccination/Date Given: No Immunizations Up to Date: Yes - History of Present Illness Time Seen by Provider: 01/30/20 15:38 Physician History: 50 years old male with history of hypertension not taking any medications for the last 6 months due to lack of insurance presented in the ER with chief complaint of elevated blood pressure 250/150 at home. Patient reports he is h aving dull to sharp left parietal/occipital area headache with no significant aggravating or relieving factors, mild to moderate intensity off and on without any blurring of vision. He denies any chest pain palpitations or shortness of breath. Denies any focal numbness tingling or weakness. Reports symptoms similar to last time when he had a renal failure. (JESSICA TERRY) Allergies/Adverse Reactions: Iodinated Contrast Media [Iodinated Contrast Media - IV Dye] Allergy (Mild, Verified 01/30/20 15:45) Hives Home Medications: No Reportable Medications [No Reported Medications] 01/30/20 [History] Travel Risk - International Travel Have you traveled outside of the country in past 3 weeks: No - Coronavirus Screening Are you exhibiting any of the following symptoms?: No Close contact with a COVID-19 positive Pt in past 14-21 Days: No - Review of Systems Constitutional: No Symptoms Eyes: No Symptoms Ears, Nose, & Throat: No Symptoms Respiratory: No Symptoms Cardiac: No Symptoms Abdominal/Gastrointestinal: No Symptoms Genitourinary Symptoms: No Symptoms Musculoskeletal: No Symptoms Skin: No Symptoms Neurological: Headache Psychological: No Symptoms Endocrine: No Symptoms Hematologic/Lymphatic: No Symptoms Immunological/Allergic: No Symptoms - Past Medical History Pertinent Past Medical History: Yes Neurological History: No Pertinent History ENT History: No Pertinent History Cardiac History: High Cholesterol, Hypertension Respiratory History: No Pertinent History Endocrine Medical History: No Pertinent History Musculoskeletal History: No Pertinent History GI Medical History: No Pertinent History History: Other Psycho-Social History: No Pertinent History Male Reproductive Disorders: No Pertinent History Other Medical History: Decresed kidney function - Past Surgical History Past Surgical History: Yes Neuro Surgical History: No Pertinent History Cardiac: No Pertinent History Respiratory: No Pertinent History Gastrointestinal: No Pertinent History Genitourinary: No Pertinent History Musculoskeletal: Orthopedic Surgery Male Surgical History: No Pertinent History Other Surgical History: L collar bone fx, compound fx L arm, bone out of hip and placed in wrist, fx left 5th finger - Social History Smoking Status: Never smoker Exposure to second hand smoke: No Drug Use: none Patient Lives Alone: No - Physical Exam General Appearance: no apparent distress, alert Eye Exam: PERRL/EOMI, eyes nml inspection Ears, Nose, Throat Exam: normal ENT inspection, TMs normal, pharynx normal Neck Exam: normal inspection, non-tender, supple, full range of motion Respiratory Exam: normal breath sounds, lungs clear Cardiovascular Exam: normal heart sounds, tachycardia Gastrointestinal/Abdomen Exam: soft, normal bowel sounds, No tenderness Back Exam: normal inspection Extremity Exam: normal inspection, normal range of motion Neurologic Exam: alert, oriented x 3, cooperative, 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 Supraventricular bigeminy. LVH pattern. T wave inversion in lateral leads.) Ordered Tests: Active Orders 24 hr Category Date Time Status EKG-ER Only STAT Care 01/30/20 15:53 Active IV Insertion STAT Care 01/30/20 15:53 Active CHEST 1 VIEW (PORTABLE) Routine Exams 01/30/20 16:23 Completed HEAD WITHOUT CONTRAST [CT] Stat Exams 01/30/20 15:53 Completed CBC W DIFF Stat Lab 01/30/20 15:45 Completed CMP Stat Lab 01/30/20 15:45 Completed TROPONIN Q3H Lab 01/30/20 15:45 Completed TROPONIN Q3H Lab 01/30/20 19:00 Completed TROPONIN Q3H Lab 01/30/20 22:00 Ordered TROPONIN Q3H Lab 01/31/20 01:00 Ordered TROPONIN Q3H Lab 01/31/20 04:00 Ordered UA W/RFX UR CULTURE Stat Lab 01/30/20 15:45 Completed Transfer Order Routine Transfer 01/30/20 Ordered Medication Summary Generic Name Dose Route Start Last Admin Trade Name Freq PRN Reason Stop Dose Admin Nicardipine HCl 25 mg/ Sodium 250 mls @ 0 mls/hr 01/30/20 17:54 01/30/20 19:50 Chloride IV 02/29/20 17:53 75 mls/hr .Q0M PRN Titration TITRATE FOR BLOOD PRESSURE Protocol Titrate Discontinued Medications Generic Name Dose Route Start Last Admin Trade Name Freq PRN Reason Stop Dose Admin Hydralazine HCl 10 mg 01/30/20 15:54 01/30/20 16:39 Apresoline 20 Mg/Ml Inj IV 01/30/20 15:55 10 mg STAT ONE Administration Hydralazine HCl Confirm 01/30/20 15:58 Apresoline 20 Mg/Ml Inj Administered 01/30/20 15:59 Dose 20 mg .ROUTE .STK-MED ONE Sodium Chloride Confirm 01/30/20 19:09 Sodium Chloride 0.9% 250 Ml Administered 01/30/20 19:10 Dose 250 mls @ ud IV .STK-MED ONE Metoprolol Tartrate 5 mg 01/30/20 20:14 01/30/20 20:20 Lopressor 5 Mg/5 Ml Injection IV 08/17/20 20:15 5 mg STAT ONE Administration Metoprolol Tartrate Confirm 01/30/20 20:18 Lopressor 5 Mg/5 Ml Injection Administered 01/30/20 20:19 Dose 5 mg IV .STK-MED ONE Morphine Sulfate 4 mg 01/30/20 19:53 01/30/20 20:03 Morphine Sulfate 4 Mg Inj IV 01/30/20 19:54 4 mg STAT ONE Administration Morphine Sulfate Confirm 01/30/20 20:01 Morphine Sulfate 4 Mg Inj Administered 01/30/20 20:02 Dose 4 mg .ROUTE .STK-MED ONE Nicardipine HCl Confirm 01/30/20 19:09 Cardene 25 Mg/10 Ml Administered 01/30/20 19:10 Dose 25 mg IV .STK-MED ONE Ondansetron HCl 4 mg 01/30/20 19:53 01/30/20 20:04 Zofran 4 Mg/2 Ml Vial IV 01/30/20 19:54 4 mg STAT ONE Administration Ondansetron HCl Confirm 01/30/20 20:01 Zofran 4 Mg/2 Ml Vial Administered 01/30/20 20:02 Dose 4 mg .ROUTE .STK-MED ONE Oxycodone/Acetaminophen 1 tab 01/30/20 17:56 01/30/20 18:25 Percocet Tablet 5/325mg PO 01/30/20 17:57 1 tab STAT ONE Administration Oxycodone/Acetaminophen Confirm 01/30/20 18:16 Percocet Tablet 5/325mg Administered 01/30/20 18:17 Dose 1 tab .ROUTE .STK-MED ONE Lab/Rad Data: Laboratory Result Diagrams 01/30/20 15:45 01/30/20 15:45 Laboratory Results 01/30/20 01/30/20 01/30/20 Range/Units 19:00 15:45 15:45 WBC (4.0-10.5) K/mm3 RBC (4.1-5.6) M/mm3 Hgb (12.5-18.0) gm/dl Hct (42-50) % MCV (78-100) fl MCH (26-32) pg MCHC (32-36) g/dl RDW (11.5-14.0) % Plt Count (150-450) K/mm3 MPV (7.5-11.0) fl Gran % (36.0-66.0) % Eos # (Auto) (0-0.5) Absolute Lymphs (auto) (1.0-4.6) Absolute Monos (auto) (0.0-1.3) Lymphocytes % (24.0-44.0) % Monocytes % (0.0-12.0) % Eosinophils % (0.00-5.0) % Basophils % (0.0-0.4) % Absolute Granulocytes (1.4-6.9) Basophils # (0-0.4) Sodium 140 (137-145) mmol/L Potassium 3.4 L (3.5-5.1) mmol/L Chloride 109 H (98-107) mmol/L Carbon Dioxide 23 (22-30) mmol/L Anion Gap 12.1 (5-15) MEQ/L BUN 13 (9-20) mg/dL Creatinine 1.03 (0.66-1.25) mg/dL Estimated GFR > 60.0 ML/MIN Glucose 152 H (74-106) mg/dL Calcium 9.8 (8.4-10.2) mg/dL Total Bilirubin 0.70 (0.2-1.3) mg/dL AST 31 (17-59) U/L ALT 44 (0-50) U/L Alkaline Phosphatase 100 (38-126) U/L Troponin I 0.081 H* < 0.012 (0.000-0.034) ng/mL Serum Total Protein 8.0 (6.3-8.2) g/dL Albumin 4.9 (3.5-5.0) g/dL Urine Color (YELLOW) Urine Appearance (CLEAR) Urine pH (5-6) Ur Specific [place] (1.005-1.025) Urine Protein (Negative) Urine Ketones (NEGATIVE) Urine Blood (0-5) Pastor/ul Urine Nitrite (NEGATIVE) Urine Bilirubin (NEGATIVE) Urine Urobilinogen (0-1) mg/dL Ur Leukocyte Esterase (NEGATIVE) Urine WBC (Auto) (0-5) /HPF Urine RBC (Auto) (0-2) /HPF U Epithel Cells (Auto) (FEW) /HPF Urine Bacteria (Auto) (NEGATIVE) /HPF Urine Mucus (Auto) (NEGATIVE) /HPF Urine Culture Reflexed (NO) Urine Glucose (NEGATIVE) mg/dL 01/30/20 01/30/20 Range/Units 15:45 15:45 WBC 6.8 (4.0-10.5) K/mm3 RBC 5.36 (4.1-5.6) M/mm3 Hgb 16.3 (12.5-18.0) gm/dl Hct 47.3 (42-50) % MCV 88.2 (78-100) fl MCH 30.4 (26-32) pg MCHC 34.5 (32-36) g/dl RDW 14.2 H (11.5-14.0) % Plt Count 218 (150-450) K/mm3 MPV 11.1 H (7.5-11.0) fl Gran % 57.2 (36.0-66.0) % Eos # (Auto) 0.18 (0-0.5) Absolute Lymphs (auto) 2.12 (1.0-4.6) Absolute Monos (auto) 0.59 (0.0-1.3) Lymphocytes % 31.1 (24.0-44.0) % Monocytes % 8.7 (0.0-12.0) % Eosinophils % 2.6 (0.00-5.0) % Basophils % 0.4 (0.0-0.4) % Absolute Granulocytes 3.89 (1.4-6.9) Basophils # 0.03 (0-0.4) Sodium (137-145) mmol/L Potassium (3.5-5.1) mmol/L Chloride (98-107) mmol/L Carbon Dioxide (22-30) mmol/L Anion Gap (5-15) MEQ/L BUN (9-20) mg/dL Creatinine (0.66-1.25) mg/dL Estimated GFR ML/MIN Glucose (74-106) mg/dL Calcium (8.4-10.2) mg/dL Total Bilirubin (0.2-1.3) mg/dL AST (17-59) U/L ALT (0-50) U/L Alkaline Phosphatase (38-126) U/L Troponin I (0.000-0.034) ng/mL Serum Total Protein (6.3-8.2) g/dL Albumin (3.5-5.0) g/dL Urine Color YELLOW (YELLOW) Urine Appearance CLEAR (CLEAR) Urine pH 5.0 (5-6) Ur Specific [place] 1.025 (1.005-1.025) Urine Protein NEGATIVE (Negative) Urine Ketones NEGATIVE (NEGATIVE) Urine Blood NEGATIVE (0-5) Pastor/ul Urine Nitrite NEGATIVE (NEGATIVE) Urine Bilirubin NEGATIVE (NEGATIVE) Urine Urobilinogen NEGATIVE (0-1) mg/dL Ur Leukocyte Esterase NEGATIVE (NEGATIVE) Urine WBC (Auto) NONE (0-5) /HPF Urine RBC (Auto) NONE (0-2) /HPF U Epithel Cells (Auto) NONE (FEW) /HPF Urine Bacteria (Auto) NONE (NEGATIVE) /HPF Urine Mucus (Auto) SLIGHT (NEGATIVE) /HPF Urine Culture Reflexed NO (NO) Urine Glucose NEGATIVE (NEGATIVE) mg/dL - Progress Progress: improved, pain not gone completely, re-examined Discussed with Dr.: Geovany Will see patient in: hospital (full admit) Counseled pt/family regarding: lab results, diagnosis, rad results - Progress Progress Note: 01/30/20 17:58 50 years old is evaluated for uncontrolled hypertension with headache. He is offered pain medication but does not want anything but Tylenol. He is given oral Percocet and his headache is better. I have given him IV hydralazine and on reevaluation blood pressure improved for little while and then back again in 200s. Focal neuro exam throughout stay in the ER. I have obtained CT head which is negative. Chest x-ray negative. EKG showed sinus rhythm with some supraventricular bigeminy but no acute ST elevations or depressions. Has negative work-up including troponin and chest x-ray. I have started him on Cardene. Discussed with Dr. Flores and patient is being admitted. (MARA,JESSICA) 01/30/20 20:39 Medical decision making: The patient's second, 3-hour, troponin is now elevated. Patient continues to not complain of any chest pain or shortness of breath. A repeat EKG now shows some nonspecific ST segment changes and some PACs. Patient has sinus tachycardia with a heart rate of 107. I spoke with Dr. Vera, the emergency room physician at [facility]. I reviewed the patient history condition, laboratory results, EKG results and he accepts the patient in transfer. (ALON PULIDO) - Departure Departure Disposition: In-patient Admission Critical Care Time: Yes Critical Care Time(excluding separately billable procedures): Critical 30-74 mins - Departure Clinical Impression: Hypertensive urgency, Elevated troponin Condition: Stable Referrals: PHOEBE FLORES MD [Primary Care Provider] -
--- NOTE | 2020-01-30 16:40 | XRAY ---
Indication: Hypertension. Headache. Comparison: February 25, 2019. Portable chest again demonstrates normal heart and lungs. Bony thorax intact again with mild scoliosis and old distal left clavicle fracture. No new/acute findings.
--- NOTE | 2020-01-30 16:41 | XRAY ---
Indication: Left headache. Uncontrolled hypertension. Multiple contiguous axial images obtained through the head without contrast. Comparison: December 11, 2017. Stable age-appropriate global atrophy and minimal periventricular degenerative micro-ischemia. No acute intracranial hemorrhage, abnormal extra-axial fluid collection, or mass effect. Fourth ventricle is midline without hydrocephalus. Armando-white matter differentiation preserved. Bony calvarium intact. Mild mucosal thickening right maxillary sinus. Mastoid air cells are clear. Impression: Again atrophy and degenerative micro-ischemia within normal limits for patient's age. No acute intracranial abnormalities. Incidental mild right maxillary sinus disease.
[2020-01-30] MEDS ORDERED: CARDENE 25 MG/10 ML*** 25 MG in Sodium Chloride 0.9% 250 ML 240 ML IV PRN (17:54)
[2020-01-30] MEDS ORDERED: PERCOCET TABLET 5/325MG PO ONE (17:56)
[2020-01-30] MEDS ORDERED: PERCOCET TABLET 5/325MG ONE (18:16)
[2020-01-30] MEDS ORDERED: CARDENE 25 MG/10 ML IV ONE (19:09)
[2020-01-30] MEDS ORDERED: Sodium Chloride 0.9% 250 ML 250 ML IV ONE (19:09)
[2020-01-30] MEDS ORDERED: Zofran 4 MG/2 ML VIAL IV ONE (19:53)
[2020-01-30] MEDS ORDERED: MORPHINE SULFATE 4 MG INJ IV ONE (19:53)
[2020-01-30] MEDS ORDERED: MORPHINE SULFATE 4 MG INJ ONE (20:01)
[2020-01-30] MEDS ORDERED: Zofran 4 MG/2 ML VIAL ONE (20:01)
[2020-01-30] MEDS ORDERED: LOPRESSOR 5 MG/5 ML INJECTION IV ONE ×2 (20:14→20:18)
[2020-01-30 20:50] VITALS: O2SAT 99
[2020-01-30 21:13] VITALS: BP 174/115; PULSE 98
== END 2020-01-30 21:18 | disposition short-term general hospital (02) ==
LOC: ED 15:27
DX: I16.0 Hypertensive urgency (principal); R51 Headache
CPT/HCPCS: 36000; 36415; 70450; 71045; 80053; 81001; 84484; 85025; 93005; 96365; 96366; 96374; 96375; 99285; 99291; J0360; J2270; J2405; A9270-GY

== ENCOUNTER 2021-04-20 01:04 | Emergency (ER) | payer OTHER ==
[2021-04-20] MEDS ORDERED: Ntg 0.2MG/Ml in D5W GLASS*** 250 ML IV STA (01:16)
[2021-04-20] MEDS ORDERED: Ntg 0.2MG/Ml in D5W GLASS*** 250 ML IV ONE (01:21)
--- NOTE | 2021-04-20 01:27 | ERPHSYRPT ---
- History of Present Illness Historian: patient, EMS Patient Subjective Stated Complaint: "My chest started hurting when I was laying down." Triage Nursing Assessment: Patient reported acute onset chest pain around 2330 when he was laying down to go to sleep. Reported the pain radiates to the left arm. Denied PMH of IA. Reported significant family history for IA Physician History: 51 yo wm w sudden onset of L arm pain that then developed into chest pain at about 11:45. Pt stated that the pain was 10/10 and sharp. He had some dyspnea wo N/V/diaphoresis. Pt denies cardiac hx but does have HTN/hyperlipidemia. He does not smoke and denies DM. EMS gave pt 324 ASA and 3 SL NTG w decrease in pain to a 5. Cough/coryza/fever are denied. Timing/Duration: other (11:45) Activities at Onset: rest Quality: sharpness Location: substernal Chest Pain Radiation: arm Severity of Pain-Max: severe Severity of Pain-Current: moderate Modifying Factors: Improves With: nitroglycerin Associated Symptoms: shortness of breath, No nausea, No vomiting, No palp itations, No heartburn, No abdominal pain, No cough, No hurts to breathe, No diaphoresis, No chills, No fever, No fatigue, No weakness, No swelling/lump in chest, No syncope, No rash, No headache, No dizziness, No edema, No back pain Prior Chest Pain/Cardiac Workup: no prior chest pain Nitro Today/Relief: 0.4 mg x 3, provided by EMS, mild relief Aspirin Treatment Today: 81 mg x 4, provided by EMS Allergies/Adverse Reactions: Iodinated Contrast Media [Iodinated Contrast Media - IV Dye] Allergy (Mild, Verified 04/20/21 01:07) Hives Home Medications: Carvedilol 6.25 mg [Coreg 6.25 MG] 6.25 mg PO BID 04/20/21 [History] Spironolactone 50 mg PO DAILY 04/20/21 [History] lisinopriL [Lisinopril] 40 mg PO DAILY 04/20/21 [History] Hx Tetanus, Diphtheria Vaccination/Date Given: Yes Hx Influenza Vaccination/Date Given: No Hx Pneumococcal Vaccination/Date Given: No Travel Risk - International Travel Have you traveled outside of the country in past 3 weeks: No - Coronavirus Screening Are you exhibiting any of the following symptoms?: No Close contact with a COVID-19 positive Pt in past 14-21 Days: No - Vaccine Status Have you recieved a Covid-19 vaccination: No - Review of Systems Constitutional: No Symptoms Eyes: No Symptoms Ears, Nose, & Throat: No Symptoms Respiratory: No Symptoms, Dyspnea Cardiac: No Symptoms, Chest Pain Abdominal/Gastrointestinal: No Symptoms Genitourinary Symptoms: No Symptoms Musculoskeletal: No Symptoms Skin: No Symptoms Neurological: No Symptoms Psychological: No Symptoms Endocrine: No Symptoms Hematologic/Lymphatic: No Symptoms Immunological/Allergic: No Symptoms - Past Medical History Pertinent Past Medical History: Yes Neurological History: No Pertinent History ENT History: No Pertinent History Cardiac History: High Cholesterol, Hypertension Respiratory History: No Pertinent History Endocrine Medical History: No Pertinent History Musculoskeletal History: No Pertinent History GI Medical History: No Pertinent History History: Other Psycho-Social History: No Pertinent History Male Reproductive Disorders: No Pertinent History Other Medical History: Decresed kidney function - Past Surgical History Past Surgical History: Yes Neuro Surgical History: No Pertinent History Cardiac: No Pertinent History Respiratory: No Pertinent History Gastrointestinal: No Pertinent History Genitourinary: No Pertinent History Musculoskeletal: Orthopedic Surgery Male Surgical History: No Pertinent History Other Surgical History: L collar bone fx, compound fx L arm, bone out of hip and placed in wrist, fx left 5th finger - Social History Smoking Status: Never smoker Exposure to second hand smoke: No Drug Use: none Patient Lives Alone: No Significant Family History: no pertinent family hx - Nursing Vital Signs Nursing Vital Signs: Initial Vital Signs Pulse Rate 105 H 04/20/21 01:05 Respiratory Rate 18 04/20/21 01:05 Blood Pressure 207/142 04/20/21 01:05 O2 Sat by Pulse Oximetry 97 04/20/21 01:05 Pain Scale Pain Intensity 0 Hypertensive - Physical Exam General Appearance: no apparent distress Eye Exam: PERRL/EOMI, eyes nml inspection Ears, Nose, Throat Exam: normal ENT inspection, TMs normal, pharynx normal, moist mucous membranes Neck Exam: normal inspection, non-tender, supple, full range of motion, No meningismus, No mass, No Brudzinski, No Kernig's, No carotid bruit Respiratory Exam: normal breath sounds, lungs clear, airway intact, No chest tenderness, No respiratory distress Cardiovascular Exam: tachycardia, No murmur Gastrointestinal/Abdomen Exam: soft, normal bowel sounds, No tenderness Back Exam: normal inspection, normal range of motion, No CVA tenderness Extremity Exam: normal inspection, normal range of motion Neurologic Exam: alert, oriented x 3, cooperative, shuttleless loom weaver II-XII nml as tested, normal mood/affect, sensation nml Skin Exam: normal color, warm, dry, No rash Lymphatic Exam: adenopathy SpO2 Interpretation: normal SpO2: 97 O2 Delivery: Room Air - Course Nursing assessment & vital signs reviewed: Yes EKG Interpreted by Me: RATE (NSR/R99/LAFB/RBBB/Prolonged QTc/ST depression V3- V6), Other (EKG#2 Sinus tach/ST depression resolved/Prolonged QTc/LAFB-RBBB) - Radiology Exams Chest X-ray Interpretation: Interpreted by me (NAD) Ordered Tests: Active Orders 24 hr Category Date Time Status Dermatology Sales Representative STAT Care 04/20/21 01:13 Active EKG-ER Only STAT Care 04/20/21 01:12 Active EKG-ER Only STAT Care 04/20/21 02:48 Active CHEST 1 VIEW (PORTABLE) Stat Exams 04/20/21 01:13 Taken CTA CHEST W AND/OR WO [CT] Stat Exams 04/20/21 04:13 Taken CBC W DIFF Stat Lab 04/20/21 01:49 Completed CMP Stat Lab 04/20/21 01:49 Completed Manual Differential NC Stat Lab 04/20/21 01:49 Completed NT PRO BNP Stat Lab 04/20/21 01:49 Completed PROTIME WITH INR Stat Lab 04/20/21 01:49 Completed PTT Stat Lab 04/20/21 01:49 Completed TROPONIN Q3H Lab 04/20/21 01:49 Completed TROPONIN Q3H Lab 04/20/21 05:20 Received TROPONIN Q3H Lab 04/20/21 07:15 Ordered TROPONIN Q3H Lab 04/20/21 10:15 Ordered TROPONIN Q3H Lab 04/20/21 13:15 Ordered Medication Summary Generic Name Dose Route Start Last Admin Trade Name Freq PRN Reason Stop Dose Admin Nitroglycerin/Dextrose 250 mls @ 1.5 mls/hr 04/20/21 01:16 04/20/21 04:53 Ntg 0.2mg/Ml In D5w Glass IV 04/21/21 01:15 EST 10 mcg/min .Q24H STA 3 mls/hr Titration Protocol 5 MCG/MIN Heparin Sodium/Dextrose 25,000 units in 250 mls @ 10 mls/hr 04/20/21 03:00 03:00 Heparin 25,000 Units/D5w 250ml Premix IV 05/20/21 02:59 10 mls/hr .Q24H JU 10 mls/hr Administration Discontinued Medications Generic Name Dose Route Start Last Admin Trade Name Fili PRN Reason Stop Dose Admin Methylprednisolone Sodium 0 mg 04/20/21 04:23 04/20/21 04:31 Succinate 125 mg/ Sterile IV 04/20/21 04:24 125 mg Water 2 ml STAT ONE Administration Diphenhydramine HCl 25 mg 04/20/21 04:22 04/20/21 04:32 Diphenhydramine Hcl 50 Mg/Ml Vial IV 04/20/21 04:23 25 mg STAT ONE Administration Diphenhydramine HCl Confirm 04/20/21 04:30 Diphenhydramine Hcl 50 Mg/Ml Vial Administered 04/20/21 04:31 Dose 50 mg .ROUTE .STK-MED ONE Heparin Sodium (Beef Lung) 5,000 unit 04/20/21 02:50 04/20/21 03:00 Heparin 5000 Unit/0.5 Ml Syringe IV 04/20/21 02:51 5,000 unit STAT ONE Administration Heparin Sodium (Beef Lung) Confirm 04/20/21 02:59 Heparin 5000 Unit/0.5 Ml Syringe Administered 04/20/21 03:00 Dose 5,000 unit .ROUTE .STK-MED ONE Nitroglycerin/Dextrose Confirm 04/20/21 01:21 Ntg 0.2mg/Ml In D5w Glass Administered 04/20/21 01:22 Dose 250 mls @ ud IV .STK-MED ONE Methylprednisolone Sodium Succinate Confirm 04/20/21 04:31 Methylprednis Sod Succ 125 Mg/2 Ml Vial Administered 04/20/21 04:32 Dose 125 mg .ROUTE .STK-MED ONE Metoprolol Tartrate 50 mg 04/20/21 03:04 04/20/21 03:16 Metoprolol Tartrate 50 Mg Tablet PO 04/20/21 03:05 50 mg STAT ONE Administration Metoprolol Tartrate Confirm 04/20/21 03:16 Metoprolol Tartrate 50 Mg Tablet Administered 04/20/21 03:17 Dose 50 mg .ROUTE .[employer] Sterile Water Confirm 04/20/21 04:31 Water For Injection,Sterile 10 Ml Vial Administered 04/20/21 04:32 Dose 10 ml IJ .[employer] ONE Lab/Rad Data: Laboratory Result Diagrams 04/20/21 01:49 04/20/21 01:49 Laboratory Results 04/20/21 04/20/21 04/20/21 Range/Units 01:49 01:49 01:49 WBC (4.0-10.5) K/mm3 RBC (4.1-5.6) M/mm3 Hgb (12.5-18.0) gm/dl Hct (42-50) % MCV (78-100) fl MCH (26-32) pg MCHC (32-36) g/dl RDW (11.5-14.0) % Plt Count (150-450) K/mm3 MPV (7.5-11.0) fl PT 11.4 (9.4-12.5) SECONDS INR 0.97 (0.8-3.0) APTT 29.9 (25.1-36.5) SECONDS Sodium 141 (137-145) mmol/L Potassium 3.9 (3.5-5.1) mmol/L Chloride 107 (98-107) mmol/L Carbon Dioxide 21 L (22-30) mmol/L Anion Gap 16.8 H (5-15) MEQ/L BUN 19 (9-20) mg/dL Creatinine 1.40 H (0.66-1.25) mg/dL Estimated GFR 56.8 ML/MIN Glucose 132 H (74-106) mg/dL Calcium 9.5 (8.4-10.2) mg/dL Total Bilirubin 0.50 (0.2-1.3) mg/dL AST 35 (17-59) U/L ALT 55 H (0-50) U/L Alkaline Phosphatase 82 (38-126) U/L Troponin I 0.062 H* (0.000-0.034) ng/mL NT-Pro-B Natriuret Pep 18.7 (0-900) pg/mL Serum Total Protein 7.4 (6.3-8.2) g/dL Albumin 4.6 (3.5-5.0) g/dL 04/20/21 Range/Units 01:49 WBC 8.0 (4.0-10.5) K/mm3 RBC 5.22 (4.1-5.6) M/mm3 Hgb 15.7 (12.5-18.0) gm/dl Hct 46.3 (42-50) % MCV 88.7 (78-100) fl MCH 30.1 (26-32) pg MCHC 33.9 (32-36) g/dl RDW 14.6 H (11.5-14.0) % Plt Count 197 (150-450) K/mm3 MPV 11.1 H (7.5-11.0) fl PT (9.4-12.5) SECONDS INR (0.8-3.0) APTT (25.1-36.5) SECONDS Sodium (137-145) mmol/L Potassium (3.5-5.1) mmol/L Chloride (98-107) mmol/L Carbon Dioxide (22-30) mmol/L Anion Gap (5-15) MEQ/L BUN (9-20) mg/dL Creatinine (0.66-1.25) mg/dL Estimated GFR ML/MIN Glucose (74-106) mg/dL Calcium (8.4-10.2) mg/dL Total Bilirubin (0.2-1.3) mg/dL AST (17-59) U/L ALT (0-50) U/L Alkaline Phosphatase (38-126) U/L Troponin I (0.000-0.034) ng/mL NT-Pro-B Natriuret Pep (0-900) pg/mL Serum Total Protein (6.3-8.2) g/dL Albumin (3.5-5.0) g/dL - Progress Progress: improved Progress Note: NTG drip started w pain level decreasing to 0. Heparin 5000u bolus/Heparin drip 1000u/hr [facility] unable to accept pt 04/20/21 03:29 04/20/21 04:[address] Darby at [facility]. Wants to obtain CTA of chest. Counseled pt/family regarding: lab results, diagnosis, need for follow-up, rad results - Departure Departure Disposition: Transfer Clinical Impression: NSTEMI (non-ST elevated myocardial infarction), Hypertensive emergency Condition: Stable Critical Care Time: Yes Critical Care Time(excluding separately billable procedures): Critical 30-74 mins Referrals: PHOEBE SUAREZ MD [Primary Care Provider] - Follow up/PCP as directed
[2021-04-20 01:53] LABS: Hematocrit 46.3 % (42-50); Hemoglobin 15.7 gm/dl (12.5-18.0); Mean Cell Volume 88.7 fl (78-100); Mean Corpuscular Hemoglobin 30.1 pg (26-32); Mean Corpuscular Hgb Concent. 33.9 g/dl (32-36); Mean Platelet Volume 11.1 fl (7.5-11.0); Platelet Count 197 K/mm3 (150-450); Red Blood Count 5.22 M/mm3 (4.1-5.6); Red Cell Distribution Width 14.6 % (11.5-14.0)
[2021-04-20 02:00] LABS: INR 0.97 (0.8-3.0); PROTIME 11.4 SECONDS (9.4-12.5)
[2021-04-20 02:02] LABS: PTT 29.9 SECONDS (25.1-36.5)
[2021-04-20 02:14] LABS: ALBUMIN 4.6 g/dL (3.5-5.0); ANION GAP 16.8 MEQ/L (5-15); BILIRUBIN,TOTAL 0.5 mg/dL (0.2-1.3); Calcium 9.5 mg/dL (8.4-10.2); Creatinine 1 1.4 mg/dL (0.66-1.25); EST GLOMERULAR FILTRATION RATE 56.8 ML/MIN; NT PRO BNP 18.7 pg/mL (0-900); Potassium 3.9 mmol/L (3.5-5.1); Total Protein 7.4 g/dL (6.3-8.2)
[2021-04-20] MEDS ORDERED: Heparin 5000 UNITS/0.5 ML (HIGH RISK MED) IV ONE (02:50)
[2021-04-20] MEDS ORDERED: Heparin 5000 UNITS/0.5 ML (HIGH RISK MED) ONE (02:59)
[2021-04-20] MEDS ORDERED: Heparin 25,000 units/D5W 250ML PREMIX 25,000 UNITS/250 ML BAG IV ONE (02:59)
[2021-04-20] MEDS ORDERED: Heparin 25,000 units/D5W 250ML PREMIX 25,000 UNITS/250 ML BAG IV SCH (03:00)
[2021-04-20] MEDS ORDERED: Lopressor 50 MG PO ONE (03:04)
[2021-04-20] MEDS ORDERED: Lopressor 50 MG ONE (03:16)
[2021-04-20] MEDS ORDERED: BENADRYL 50 MG/ML IV ONE (04:22)
[2021-04-20] MEDS ORDERED: solu-MEDROL 125 MG, Sterile H2O 10 ml 2 ML IV ONE ×2 (04:23)
[2021-04-20] MEDS ORDERED: BENADRYL 50 MG/ML ONE (04:30)
[2021-04-20] MEDS ORDERED: solu-MEDROL ONE (04:31)
[2021-04-20] MEDS ORDERED: Sterile H2O 10 ml IJ ONE (04:31)
[2021-04-20 05:31] LABS: ATYPICAL LYMPHS 2 %; Eosinophil 3 % (0.00-3.0); Lymphocytes 45 % (24-44); Monocyte 4 % (0.0-12.0); Neutrophils 46 % (36.-66.); Platelet Estimate NORMAL (NORMAL); Total Cells Counted 100
--- NOTE | 2021-04-20 08:18 | XRAY ---
Indication: Chest pain and left arm numbness. Difficulty breathing. Conventional contrast enhanced CTA chest performed using 100 cc Isovue 370 contrast. Two-dimensional sagittal and coronal reformatted images obtained. Additional 3-dimensional reformatted images obtained using a separate workstation. Comparison: None There is good opacification of the pulmonary arteries to include the lobar and segmental branches. No pulmonary embolus. Heart is not enlarged. 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 No pathologic mediastinal/hilar lymphadenopathy. Lungs demonstrate minimal bilateral dependent atelectasis. No suspicious pulmonary mass, infiltrate, effusion, or pneumothorax. Bony thorax intact with minimal degenerative changes throughout the spine. Limited upper abdomen demonstrates mild fatty liver, 1.7 cm right renal cyst, and 13.5 cm splenomegaly. Impression: 1. Negative pulmonary embolus or aortic dissection. 2. Incidental fatty liver, right renal cyst, and splenomegaly. 3. Remaining CTA chest with contrast exam is negative. Comment: Preliminary interpretation made by C. No cortical discrepancy.
--- NOTE | 2021-04-20 08:20 | XRAY ---
Indication: Chest pain. Comparison: January 20, 2020. Portable chest again demonstrates normal heart and lungs. Bony thorax intact again with old left clavicle fracture and minimal scoliosis. No new/acute findings.
== END 2021-04-20 05:54 | disposition short-term general hospital (02) ==
LOC: ED 01:04
DX: I21.4 Non-ST elevation (NSTEMI) myocardial infarction (principal); I16.0 Hypertensive urgency; I10 Essential (primary) hypertension; E78.5 Hyperlipidemia, unspecified
CPT/HCPCS: 36000; 36415; 71045; 71275; 80053; 83880; 84484; 85025; 85610; 85730; 93005; 93041; 96374; 99285; 99291; J1200; J1644; J2930; A9270-GY

== ENCOUNTER 2022-02-13 08:08 | Emergency (ER) | payer OTHER ==
[2022-02-13] MEDS ORDERED: Sodium Chloride 0.9% 1000 ML 1,000 ML IV SCH (08:45)
[2022-02-13 08:47] VITALS: O2SAT 98
[2022-02-13] MEDS ORDERED: Sodium Chloride 0.9% 1000 ML 1,000 ML IV STA (09:07)
[2022-02-13] MEDS ORDERED: Sodium Chloride 0.9% 1000 ML 1,000 ML ONE (09:07)
[2022-02-13 09:16] LABS: Basophil (Absolute #) 0.03 x10^3/uL (0-0.4); Eosinophil % 1.4 % (0.00-5.0); Eosinophil (Absolute #) 0.05 x10^3/uL (0-0.5); Hematocrit 42.4 % (42-50); Hemoglobin 13.6 g/dL (12.5-18.0); Lymphocyte (Absolute #) 1.27 x10^3/uL (1.0-4.6); Lymphocytes % 34.8 % (24.0-44.0); Mean Corpuscular Hemoglobin 29.8 pg (26-32); Mean Corpuscular Hgb Concent. 32.1 g/dL (32-36); Mean Platelet Volume 11.1 fL (7.5-11.0); Monocyte (Absolute #) 0.48 x10^3/uL (0.0-1.3); Monocytes % 13.2 % (0.0-12.0); Neutrophil % 49.3 % (36.0-66.0); Platelet Count 153 x10^3/uL (150-450); Red Blood Count 4.56 x10^6/uL (4.1-5.6); Red Cell Distribution Width 14.6 % (11.5-14.0); White Blood Count 3.7 x10^3/uL (4.0-10.5)
--- NOTE | 2022-02-13 09:22 | ERPHSYRPT ---
- History of Present Illness Time Seen by Provider: 02/13/22 08:55 Source: patient Exam Limitations: no limitations Patient Subjective Stated Complaint: PT states "I have felt like crap since thursday. I just do not feel well, appetite is crap and I have diarrhea." Triage Nursing Assessment: Pt presented alert and oriented X 3, skin pwd. Pt ambulates with and upright steady gait, able to speak in clear full sentences. Pt resting comfortably on the bed. Physician History: Patient is a 52-year-old male presents to emergency department for evaluation of generalized weakness fatigue diarrhea. Patient states I just do not feel well. Nothing specific. No localized pain. Symptoms are mild to moderate in intensity. No specific worsening or improving factors. Patient has a cardiac history he has been taking all medications as prescribed. Patient voices no other complaints or concerns at this time. Portions of this note were created with voice recognition technology. There may be grammatical, spelling, punctuation or sound alike errors Timing/Duration: yesterday Severity: moderate Modifying Factors: Improves With: nothing Associated Symptoms: other (Diarrhea), No nausea, No vomiting Allergies/Adverse Reactions: Iodinated Contrast Media [Iodinated Contrast Media - IV Dye] Allergy (Mild, Verified 04/20/21 01:07) Hives Home Medications: lisinopriL [Lisinopril] 20 mg PO BID 04/20/21 [History] Atorvastatin Calcium [Lipitor] 10 mg PO HS 02/13/22 [History] Carvedilol [Coreg] 25 mg PO BID 02/13/22 [History] Clonidine HCl 0.1 mg [Clonidine 0.1 mg Tablet] 0.1 mg PO HS 02/13/22 [History] Clopidogrel Bisulfate [Clopidogrel] 75 mg PO DAILY 02/13/22 [History] Furosemide 40 mg [Lasix 40 MG] 40 mg PO DAILY 02/13/22 [History] Hydralazine HCl 75 mg PO TID 02/13/22 [History] PANTOPRAZOLE 40 mg Tablet [Protonix 40MG Tablet] 40 mg PO QAM 02/13/22 [History] Hx Tetanus, Diphtheria Vaccination/Date Given: Yes Hx Influenza Vaccination/Date Given: No Hx Pneumococcal Vaccination/Date Given: No Immunizations Up to Date: Yes Travel Risk - International Travel Have you traveled outside of the country in past 3 weeks: No - Coronavirus Screening Are you exhibiting any of the following symptoms?: Yes Symptoms: Headaches/Body Aches/Fatigue Close contact with a COVID-19 positive Pt in past 14-21 Days: No - Vaccine Status Have you recieved a Covid-19 vaccination: No - Review of Systems Constitutional: No Symptoms, No Fever, No Chills Eyes: No Symptoms Ears, Nose, & Throat: No Symptoms Respiratory: No Symptoms, No Cough, No Dyspnea Cardiac: No Symptoms, No Chest Pain, No Edema, No Syncope Abdominal/Gastrointestinal: No Symptoms, No Abdominal Pain, No Nausea, No Vomiting, No Diarrhea Genitourinary Symptoms: No Symptoms, No Dysuria Musculoskeletal: No Symptoms, No Back Pain, No Neck Pain Skin: No Symptoms, No Rash Neurological: No Symptoms, No Dizziness, No Focal Weakness, No Sensory Changes Psychological: No Symptoms Endocrine: No Symptoms Hematologic/Lymphatic: No Symptoms Immunological/Allergic: No Symptoms All Other Systems: Reviewed and Negative - Past Medical History Pertinent Past Medical History: Yes Neurological History: No Pertinent History ENT History: No Pertinent History Cardiac History: High Cholesterol, Hypertension Respiratory History: No Pertinent History Endocrine Medical History: No Pertinent History Musculoskeletal History: No Pertinent History GI Medical History: No Pertinent History History: Other Psycho-Social History: No Pertinent History Male Reproductive Disorders: No Pertinent History Other Medical History: Decresed kidney function - Past Surgical History Past Surgical History: Yes Neuro Surgical History: No Pertinent History Cardiac: No Pertinent History Respiratory: No Pertinent History Gastrointestinal: No Pertinent History Genitourinary: No Pertinent History Musculoskeletal: Orthopedic Surgery Male Surgical History: No Pertinent History Other Surgical History: L collar bone fx, compound fx L arm, bone out of hip and placed in wrist, fx left 5th finger - Social History Smoking Status: Never smoker Exposure to second hand smoke: No Drug Use: none Patient Lives Alone: No Significant Family History: no pertinent family hx - Nursing Vital Signs Nursing Vital Signs: Initial Vital Signs Temperature 98.2 F 02/13/22 08:43 Pulse Rate 76 02/13/22 08:43 Respiratory Rate 20 02/13/22 08:43 Blood Pressure 109/72 02/13/22 08:43 O2 Sat by Pulse Oximetry 98 02/13/22 08:43 Pain Scale Pain Intensity 0 - Physical Exam General Appearance: no apparent distress, alert Eye Exam: PERRL/EOMI, eyes nml inspection Ears, Nose, Throat Exam: normal ENT inspection, TMs normal, pharynx normal, moist mucous membranes Neck Exam: normal inspection, non-tender, supple, full range of motion Respiratory Exam: normal breath sounds, lungs clear, airway intact, No respiratory distress Cardiovascular Exam: regular rate/rhythm, normal heart sounds, normal peripheral pulses Gastrointestinal/Abdomen Exam: soft, normal bowel sounds, No tenderness, No mass Back Exam: normal inspection, normal range of motion, No CVA tenderness, No vertebral tenderness Extremity Exam: normal inspection, normal range of motion, pelvis stable Neurologic Exam: alert, oriented x 3, cooperative, normal mood/affect, nml cerebellar function, nml station & gait, sensation nml, No motor deficits Skin Exam: normal color, warm, dry, No rash Lymphatic Exam: No adenopathy SpO2 Interpretation: normal SpO2: 98 O2 Delivery: Room Air - Course Nursing assessment & vital signs reviewed: Yes EKG Interpreted by Me: RATE (73), Sinus Rhythm, NORMAL AXIS, NORMAL INTERVALS Ordered Tests: Active Orders 24 hr Category Date Time Status Bulk Intake Worker STAT Care 02/13/22 08:43 Active EKG-ER Only STAT Care 02/13/22 08:42 Active IV Insertion STAT Care 02/13/22 08:42 Active Pulse Oximetry (ED) STAT Care 02/13/22 08:42 Active CHEST 1 VIEW (PORTABLE) Stat Exams 02/13/22 08:43 Completed CBC W DIFF Stat Lab 02/13/22 08:42 Completed CMP Stat Lab 02/13/22 09:19 Completed TROPONIN Q4H Lab 02/13/22 09:19 Completed TROPONIN Q4H Lab 02/13/22 12:45 Ordered TROPONIN Q4H Lab 02/13/22 16:45 Ordered Medication Summary Generic Name Dose Route Start Last Admin Trade Name Freq PRN Reason Stop Dose Admin Sodium Chloride 1,000 mls @ 100 mls/hr 02/13/22 08:45 02/13/22 09:08 Sodium Chloride 0.9% 1000 Ml IV 03/15/22 08:44 Not Given .Q10H JU Discontinued Medications Generic Name Dose Route Start Last Admin Trade Name Freq PRN Reason Stop Dose Admin Sodium Chloride 1,000 mls @ 999 mls/hr 02/13/22 09:07 02/13/22 10:17 Sodium Chloride 0.9% 1000 Ml IV 02/13/22 10:07 Infused .Q1H1M STA Infusion Lab/Rad Data: Laboratory Result Diagrams 02/13/22 08:42 02/13/22 09:19 Laboratory Results 02/13/22 02/13/22 02/13/22 Range/Units 09:19 09:19 08:57 WBC (4.0-10.5) x10^3/uL RBC (4.1-5.6) x10^6/uL Hgb (12.5-18.0) g/dL Hct (42-50) % MCV (78-100) fL MCH (26-32) pg MCHC (32-36) g/dL RDW (11.5-14.0) % Plt Count (150-450) x10^3/uL MPV (7.5-11.0) fL Gran % (36.0-66.0) % Immature Gran % (Auto) (0.00-0.4) % Nucleat RBC Rel Count (0.00-0.1) % Eos # (Auto) (0-0.5) x10^3/uL Immature Gran # (Auto) (0.00-0.03) x10^3u/L Absolute Lymphs (auto) (1.0-4.6) x10^3/uL Absolute Monos (auto) (0.0-1.3) x10^3/uL Absolute Nucleated RBC (0.00-0.01) x10^3u/L Lymphocytes % (24.0-44.0) % Monocytes % (0.0-12.0) % Eosinophils % (0.00-5.0) % Basophils % (0.0-0.4) % Absolute Granulocytes (1.4-6.9) x10^3/uL Basophils # (0-0.4) x10^3/uL Sodium 141 (137-145) mmol/L Potassium 3.9 (3.5-5.1) mmol/L Chloride 107 (98-107) mmol/L Carbon Dioxide 26 (22-30) mmol/L Anion Gap 11.7 (5-15) MEQ/L BUN 19 (9-20) mg/dL Creatinine 2.04 H (0.66-1.25) mg/dL Estimated GFR 36.6 ML/MIN Glucose 154 H (74-106) mg/dL Calcium 8.6 (8.4-10.2) mg/dL Total Bilirubin 0.60 (0.2-1.3) mg/dL AST 50 (17-59) U/L ALT 61 H (0-50) U/L Alkaline Phosphatase 95 (38-126) U/L Troponin I 0.024 (0.000-0.034) ng/mL Serum Total Protein 6.9 (6.3-8.2) g/dL Albumin 4.3 (3.5-5.0) g/dL Influenza Type A Ag NEGATIVE (NEGATIVE) Influenza Type B Ag NEGATIVE (NEGATIVE) RSV (PCR) NEGATIVE (Negative) SARS-CoV-2 (PCR) POSITIVE A (NEGATIVE) 02/13/22 Range/Units 08:42 WBC 3.7 L (4.0-10.5) x10^3/uL RBC 4.56 (4.1-5.6) x10^6/uL Hgb 13.6 (12.5-18.0) g/dL Hct 42.4 (42-50) % MCV 93.0 (78-100) fL MCH 29.8 (26-32) pg MCHC 32.1 (32-36) g/dL RDW 14.6 H (11.5-14.0) % Plt Count 153 (150-450) x10^3/uL MPV 11.1 H (7.5-11.0) fL Gran % 49.3 (36.0-66.0) % Immature Gran % (Auto) 0.5 H (0.00-0.4) % Nucleat RBC Rel Count 0.0 (0.00-0.1) % Eos # (Auto) 0.05 (0-0.5) x10^3/uL Immature Gran # (Auto) 0.02 (0.00-0.03) x10^3u/L Absolute Lymphs (auto) 1.27 (1.0-4.6) x10^3/uL Absolute Monos (auto) 0.48 (0.0-1.3) x10^3/uL Absolute Nucleated RBC 0.00 (0.00-0.01) x10^3u/L Lymphocytes % 34.8 (24.0-44.0) % Monocytes % 13.2 H (0.0-12.0) % Eosinophils % 1.4 (0.00-5.0) % Basophils % 0.8 (0.0-0.4) % Absolute Granulocytes 1.80 (1.4-6.9) x10^3/uL Basophils # 0.03 (0-0.4) x10^3/uL Sodium (137-145) mmol/L Potassium (3.5-5.1) mmol/L Chloride (98-107) mmol/L Carbon Dioxide (22-30) mmol/L Anion Gap (5-15) MEQ/L BUN (9-20) mg/dL Creatinine (0.66-1.25) mg/dL Estimated GFR ML/MIN Glucose (74-106) mg/dL Calcium (8.4-10.2) mg/dL Total Bilirubin (0.2-1.3) mg/dL AST (17-59) U/L ALT (0-50) U/L Alkaline Phosphatase (38-126) U/L Troponin I (0.000-0.034) ng/mL Serum Total Protein (6.3-8.2) g/dL Albumin (3.5-5.0) g/dL Influenza Type A Ag (NEGATIVE) Influenza Type B Ag (NEGATIVE) RSV (PCR) (Negative) SARS-CoV-2 (PCR) (NEGATIVE) - Progress Progress: improved Progress Note: Patient reassessed. He feels much better. Work-up reveals COVID-positive. Patient also has elevated creatinine. Hyperglycemia. Patient has not been formally diagnosed with diabetes. Patient received a liter of normal saline which will help with the hyperglycemia and the creatinine. Case discussed with his primary care doctor, Dr. Suarez who will see patient as an outpatient. Patient is ready for discharge. No indication for further work-up at this time. Will discharge home. Patient agrees to follow-up with Dr. Suarez within 48 hours for reevaluation. Portions of this note were created with voice recognition technology. There may be grammatical, spelling, punctuation or sound alike errors 02/13/22 10:56 Discussed with DrLeslie: Geovany Will see patient in: office Counseled pt/family regarding: lab results, diagnosis, need for follow-up - Departure Departure Disposition: Home Clinical Impression: COVID-19, Elevated serum creatinine, Hyperglycemia Condition: Stable Critical Care Time: No Referrals: PHOEBE SUAREZ MD [Primary Care Provider] - Follow up/PCP as directed Additional Instructions: Discharge/Care Plan HARSHAL DOUGLAS was seen on 02/13/22 in the Emergency Room. The patient was counseled regarding Diagnosis,Lab results, Imaging studies, need for follow up and when to return to the Emergency Room. Prescriptions given: Discharge Note I have spoken with the patient and/or caregivers. I have explained the patient's condition, diagnosis and treatment plan based on the information available to me at this time. I have answered the patient's and/or caregiver's questions and addressed any concerns. The patient and/or caregivers have as good understanding of the patient's diagnosis, condition and treatment plan as can be expected at this point. The vital signs have been stable. The patient's condition is stable and appropriate for discharge from the emergency department. The patient will pursue further outpatient evaluation with the primary care physician or other designated or consulting physician as outlined in the discharge instructions. The patient and/or caregivers are agreeable to this plan of care and follow-up instructions have been explained in detail. The patient and/or caregivers have received these instruction. The patient/and or caregivers are aware that any significant change in condition or worsening of symptoms should prompt an immediate return to this or the closest emergency department or call 911.
[2022-02-13 09:39] LABS: INFLUENZA A NEGATIVE (NEGATIVE); INFLUENZA B NEGATIVE (NEGATIVE); RESPIRATORY SYNCTIAL VIRUS NEGATIVE (Negative)
[2022-02-13 09:41] LABS: ALBUMIN 4.3 g/dL (3.5-5.0); ANION GAP 11.7 MEQ/L (5-15); BILIRUBIN,TOTAL 0.6 mg/dL (0.2-1.3); Calcium 8.6 mg/dL (8.4-10.2); Creatinine 1 2.04 mg/dL (0.66-1.25); EST GLOMERULAR FILTRATION RATE 36.6 ML/MIN; Potassium 3.9 mmol/L (3.5-5.1); Total Protein 6.9 g/dL (6.3-8.2)
[2022-02-13 09:42] LABS: SARS-CoV-2 Xpert Express POSITIVE (NEGATIVE)
--- NOTE | 2022-02-13 10:02 | XRAY ---
Indication: Short of breath and congestion. Comparison: April 20, 2021 Portable chest remains inflated and clear. Heart not enlarged with interval CABG. Bony thorax intact with new sternotomy wires.
[2022-02-13 11:03] VITALS: BP 123/78; PULSE 69
== END 2022-02-13 11:16 | disposition home or self-care (01) ==
LOC: ED 08:08
DX: U07.1 COVID-19 (principal); R74.8 Abnormal levels of other serum enzymes; R73.9 Hyperglycemia, unspecified; R53.1 Weakness; R53.83 Other fatigue; R19.7 Diarrhea, unspecified; E78.5 Hyperlipidemia, unspecified; I10 Essential (primary) hypertension; Z79.02 Long term (current) use of antithrombotics/antiplatelets; Z79.899 Other long term (current) drug therapy; Z28.310 Unvaccinated for COVID-19
CPT/HCPCS: 0241U; 36000; 36415; 71045; 80053; 84484; 85025; 93005; 93041; 94760; 96360; 99284

== ENCOUNTER 2022-11-07 14:31 | Emergency (ER) | payer OTHER ==
[2022-11-07] MEDS ORDERED: TRANDATE 20 MG/4 ML SYRINGE IV ONE ×2 (15:33→15:40)
[2022-11-07] MEDS ORDERED: Zofran 4 MG/2 ML VIAL IV ONE (15:34)
[2022-11-07] MEDS ORDERED: SUBLIMAZE 100 MCG/2 ML IV ONE (15:34)
[2022-11-07] MEDS ORDERED: Zofran 4 MG/2 ML VIAL ONE (15:39)
[2022-11-07] MEDS ORDERED: SUBLIMAZE 100 MCG/2 ML ONE (15:39)
[2022-11-07 15:44] LABS: Absolute Neutrophil Ct (ANC) 3.76 x10^3/uL (1.4-6.9); BASOPHIL % 0.7 % (0.0-0.4); Basophil (Absolute #) 0.04 x10^3/uL (0-0.4); Eosinophil (Absolute #) 0.24 x10^3/uL (0-0.5); Hematocrit 39.8 % (42-50); Hemoglobin 12.9 g/dL (12.5-18.0); IMMATURE GRAN # 0.01 x10^3u/L (0.00-0.03); IMMATURE GRAN % 0.2 % (0.00-0.4); Lymphocyte (Absolute #) 1.46 x10^3/uL (1.0-4.6); Lymphocytes % 24.1 % (24.0-44.0); Mean Cell Volume 91.9 fL (78-100); Mean Corpuscular Hemoglobin 29.8 pg (26-32); Mean Corpuscular Hgb Concent. 32.4 g/dL (32-36); Mean Platelet Volume 11.2 fL (7.5-11.0); Monocyte (Absolute #) 0.56 x10^3/uL (0.0-1.3); Monocytes % 9.2 % (0.0-12.0); Neutrophil % 61.8 % (36.0-66.0); Platelet Count 179 x10^3/uL (150-450); Red Blood Count 4.33 x10^6/uL (4.1-5.6); Red Cell Distribution Width 14.2 % (11.5-14.0); White Blood Count 6.1 x10^3/uL (4.0-10.5)
--- NOTE | 2022-11-07 16:01 | XRAY ---
Indication: Right flank pain. No history of kidney stones. Multiple contiguous axial images obtained through abdomen and pelvis without contrast using renal stone protocol. Comparison: August 09, 2015 Lung bases remain clear. Heart not enlarged. Left lower renal calyx demonstrates new nonobstructing punctate calculus. No other calculus or evidence for obstructive uropathy. New 2 cm right upper pole exophytic cyst. Stomach distended with food. Gallbladder contracted without gallstones. Noncontrasted stomach and bowel loops appear nonobstructed with normal appendix. Head of pancreas demonstrates stable indeterminant punctate calcification. No free fluid/air. Remaining liver, gallbladder, pancreas, spleen, adrenal glands, kidneys, ureters, and bladder are unremarkable for noncontrast exam. Minimal aortic calcifications without AAA. Osseous structures intact with minimal/mild degenerative changes throughout visualized spine. Stable small fatty right inguinal hernia. Impression: 1. New nonobstructing left renal punctate calculus and right renal cyst. 2. Again chronic findings including indeterminant pancreatic punctate calcification, degenerative spondylosis, and small fatty right inguinal hernia. 3. Remaining CT abdomen/pelvis without contrast exam is negative.
[2022-11-07 16:17] LABS: ALBUMIN 4.1 g/dL (3.5-5.0); BILIRUBIN,TOTAL 0.5 mg/dL (0.2-1.3); Creatinine 1 1.37 mg/dL (0.66-1.25); Potassium 3.7 mmol/L (3.5-5.1); Total Protein 6.9 g/dL (6.3-8.2)
[2022-11-07 16:18] LABS: Appearance Clear (Clear); Bacteria None Seen /HPF (None Seen); Bilirubin Negative (Negative); Blood Negative (Negative); Epithelial Cells None Seen /HPF (None Seen); Glucose, Urine Negative (Negative); Hyaline Casts NONE SEEN /LPF (0-2); Ketones Trace (Negative); Leukocyte Esterase Negative (Negative); Nitrite Negative (Negative); Ph 5.5 (4.6-8.0); Protein,Urine Dip Negative (Negative); RBC 0-2 /HPF (0-5); Urobilinogen 0.2 mg/dL (0.2); WBC 0-2 /HPF (0-5)
[2022-11-07 16:20] LABS: ADD URINE CULTURE? NO (NO)
--- NOTE | 2022-11-07 16:27 | ERPHSYRPT ---
- History of Present Illness Source: patient Exam Limitations: no limitations Patient Subjective Stated Complaint: Right flank pain Triage Nursing Assessment: Patient ambulated back to ED and transferred self to bed. Patient A+O X3. Patient's skin pink, warm and dry. Patient complains of right flank pain intermittent pain 8/10 for one week. Patient denies any urinary symptoms. Patient denies N/V. Physician History: 52 yo WM w R CVA pain x 3 days. Pain is stabbing and 8/10. Nothing makes it better or worse. He denies hematuria/dysuria/injury /fever/nausea/vomiting/diarrhea/chest pain/abdominal pain. Pt has a h/o HTN/MN/CABG. Timing/Duration: other (3 days) Method of Injury: unknown Quality: stabbing Severity of Pain-Max: severe Severity of Pain-Current: severe Modifying Factors: Improves With: nothing Associated Symptoms: denies symptoms Previous symptoms: no prior history Allergies/Adverse Reactions: Iodinated Contrast Media [Iodinated Contrast Media - IV Dye] Allergy (Mild, Verified 11/07/22 15:03) Hives Home Medications: lisinopriL [Lisinopril] 20 mg PO BID 04/20/21 [History] Atorvastatin Calcium [Lipitor] 10 mg PO HS 02/13/22 [History] Carvedilol [Coreg] 25 mg PO BID 02/13/22 [History] Clonidine HCl 0.1 mg [Clonidine 0.1 mg Tablet] 0.1 mg PO HS 02/13/22 [History] Clopidogrel Bisulfate [Clopidogrel] 75 mg PO DAILY 02/13/22 [History] Furosemide 40 mg [Lasix 40 MG] 40 mg PO DAILY 02/13/22 [History] Hydralazine HCl 75 mg PO TID 02/13/22 [History] PANTOPRAZOLE 40 mg Tablet [Protonix 40MG Tablet] 40 mg PO QAM 02/13/22 [History] Hx Tetanus, Diphtheria Vaccination/Date Given: Yes Hx Influenza Vaccination/Date Given: No Hx Pneumococcal Vaccination/Date Given: No Immunizations Up to Date: Yes Travel Risk - International Travel Have you traveled outside of the country in past 3 weeks: No - Coronavirus Screening Are you exhibiting any of the following symptoms?: No Close contact with a COVID-19 positive Pt in past 14-21 Days: No - Vaccine Status Have you recieved a Covid-19 vaccination: No - Review of Systems Constitutional: No Symptoms Eyes: No Symptoms Ears, Nose, & Throat: No Symptoms Respiratory: No Symptoms Cardiac: Orthopnea Abdominal/Gastrointestinal: No Symptoms Genitourinary Symptoms: No Symptoms, Flank Pain Musculoskeletal: No Symptoms, Back Pain Skin: No Symptoms Neurological: No Symptoms Psychological: No Symptoms Endocrine: No Symptoms Hematologic/Lymphatic: No Symptoms Immunological/Allergic: No Symptoms - Past Medical History Pertinent Past Medical History: Yes Neurological History: No Pertinent History ENT History: No Pertinent History Cardiac History: High Cholesterol, Hypertension Respiratory History: No Pertinent History Endocrine Medical History: No Pertinent History Musculoskeletal History: No Pertinent History GI Medical History: No Pertinent History History: Other Psycho-Social History: No Pertinent History Male Reproductive Disorders: No Pertinent History Other Medical History: Decresed kidney function - Past Surgical History Past Surgical History: Yes Neuro Surgical History: No Pertinent History Cardiac: No Pertinent History Respiratory: No Pertinent History Gastrointestinal: No Pertinent History Genitourinary: No Pertinent History Musculoskeletal: Orthopedic Surgery Male Surgical History: No Pertinent History Other Surgical History: L collar bone fx, compound fx L arm, bone out of hip and placed in wrist, fx left 5th finger - Social History Smoking Status: Never smoker Exposure to second hand smoke: No Drug Use: none Patient Lives Alone: No Significant Family History: no pertinent family hx - Nursing Vital Signs Nursing Vital Signs: Initial Vital Signs Temperature 97.6 F 11/07/22 15:03 Pulse Rate 94 H 11/07/22 15:03 Respiratory Rate 18 11/07/22 15:03 Blood Pressure 207/137 11/07/22 15:03 O2 Sat by Pulse Oximetry 99 11/07/22 15:03 Pain Scale Pain Intensity 0 Markedly hypertensive - Physical Exam General Appearance: no apparent distress Eye Exam: PERRL/EOMI, eyes nml inspection Ears, Nose, Throat Exam: normal ENT inspection, TMs normal, pharynx normal, moist mucous membranes Neck Exam: normal inspection, non-tender, supple, full range of motion, No meningismus, No mass, No Brudzinski, No Kernig's Respiratory Exam: normal breath sounds, lungs clear, airway intact, No respiratory distress Cardiovascular Exam: regular rate/rhythm, normal heart sounds, normal peripheral pulses, capillary refill <2 sec, No murmur Gastrointestinal Exam: soft, normal bowel sounds, No tenderness Back Exam: normal inspection, normal range of motion, CVA tenderness (Very Mild R CVA TTP at best) Extremity Exam: normal inspection, normal range of motion Peripheral Pulses: carotid (R): 2+, carotid (L): 2+ Neurologic Exam: alert, oriented x 3, cooperative, member services coordinator II-XII nml as tested, normal mood/affect, nml cerebellar function, nml station & gait, sensation nml, No motor deficits, No sensory deficit Skin Exam: normal color, warm, dry Lymphatic Exam: No adenopathy SpO2 Interpretation: normal SpO2: 99 O2 Delivery: Room Air - Course Nursing assessment & vital signs reviewed: Yes EKG Interpreted by Me: RATE (NSR/Rate 91/Normal QT-QTc/No acute ST segment changes/Nonspecific T wave changes) - CT Exams Abdomen/Pelvis CT Interpretation: Discussed w/radiologist (CT AB-pelvis wo-new non-obstructing L renal punctate calculus/R renal cyst) Ordered Tests: Active Orders 24 hr Category Date Time Status EKG-ER Only STAT Care 11/07/22 15:33 Active ABDOMEN AND PELVIS W/0 CONTRAS [CT] Stat Exams 11/07/22 15:32 Completed CBC W DIFF Stat Lab 11/07/22 15:32 Completed CMP Stat Lab 11/07/22 15:32 Completed TROPONIN Q4H Lab 11/07/22 15:45 Completed TROPONIN Q4H Lab 11/07/22 19:45 Ordered TROPONIN Q4H Lab 11/07/22 23:45 Ordered UA W/RFX UR CULTURE Stat Lab 11/07/22 15:37 Completed Medication Summary Discontinued Medications Generic Name Dose Route Start Last Admin Trade Name Freq PRN Reason Stop Dose Admin Enalaprilat 1.25 mg 11/07/22 16:48 11/07/22 17:09 Enalaprilat 2.5 Mg Injection IV 11/07/22 16:49 1.25 mg STAT ONE Administration Enalaprilat Confirm 11/07/22 17:06 Enalaprilat 2.5 Mg Injection Administered 11/07/22 17:07 Dose 2.5 mg IV .STK-MED ONE Enalaprilat 1.25 mg 11/07/22 17:36 11/07/22 17:39 Enalaprilat 2.5 Mg Injection IV 11/07/22 17:37 1.25 mg STAT ONE Administration Enalaprilat Confirm 11/07/22 17:37 Enalaprilat 2.5 Mg Injection Administered 11/07/22 17:38 Dose 2.5 mg IV .STK-MED ONE Fentanyl Citrate 50 mcg 11/07/22 15:34 11/07/22 15:51 Fentanyl Citrate 100 Mcg/2 Ml* Vial IV 11/07/22 15:35 50 mcg STAT ONE Administration Fentanyl Citrate Confirm 11/07/22 15:39 Fentanyl Citrate 100 Mcg/2 Ml* Vial Administered 11/07/22 15:40 Dose 100 mcg .ROUTE .STK-MED ONE Hydralazine HCl 20 mg 11/07/22 18:14 11/07/22 18:17 Hydralazine Hcl 20 Mg/Ml Vial IV 11/07/22 18:15 20 mg STAT ONE Administration Hydralazine HCl Confirm 11/07/22 18:16 Hydralazine Hcl 20 Mg/Ml Vial Administered 11/07/22 18:17 Dose 20 mg .ROUTE .STK-MED ONE Labetalol HCl 20 mg 11/07/22 15:33 11/07/22 15:53 Labetalol Hcl 20 Mg/4 Ml Disp.Syringe IV 11/07/22 15:34 20 mg STAT ONE Administration Labetalol HCl Confirm 11/07/22 15:40 Labetalol Hcl 20 Mg/4 Ml Disp.Syringe Administered 11/07/22 15:41 Dose 20 mg IV .STK-MED ONE Ondansetron HCl 4 mg 11/07/22 15:34 11/07/22 15:49 Ondansetron Hcl 4 Mg/2 Ml Vial IV 11/07/22 15:35 4 mg STAT ONE Administration Ondansetron HCl Confirm 11/07/22 15:39 Ondansetron Hcl 4 Mg/2 Ml Vial Administered 11/07/22 15:40 Dose 4 mg .ROUTE .STK-MED ONE Lab/Rad Data: Laboratory Result Diagrams 11/07/22 15:32 11/07/22 15:32 Laboratory Results 11/07/22 11/07/22 11/07/22 Range/Units 15:45 15:37 15:32 WBC (4.0-10.5) x10^3/uL RBC (4.1-5.6) x10^6/uL Hgb (12.5-18.0) g/dL Hct (42-50) % MCV (78-100) fL MCH (26-32) pg MCHC (32-36) g/dL RDW (11.5-14.0) % Plt Count (150-450) x10^3/uL MPV (7.5-11.0) fL Gran % (36.0-66.0) % Immature Gran % (Auto) (0.00-0.4) % Nucleat RBC Rel Count (0.00-0.1) % Eos # (Auto) (0-0.5) x10^3/uL Immature Gran # (Auto) (0.00-0.03) x10^3u/L Absolute Lymphs (auto) (1.0-4.6) x10^3/uL Absolute Monos (auto) (0.0-1.3) x10^3/uL Absolute Nucleated RBC (0.00-0.01) x10^3u/L Lymphocytes % (24.0-44.0) % Monocytes % (0.0-12.0) % Eosinophils % (0.00-5.0) % Basophils % (0.0-0.4) % Absolute Granulocytes (1.4-6.9) x10^3/uL Basophils # (0-0.4) x10^3/uL Sodium 144 (137-145) mmol/L Potassium 3.7 (3.5-5.1) mmol/L Chloride 110 H (98-107) mmol/L Carbon Dioxide 28 (22-30) mmol/L Anion Gap 9.0 (5-15) MEQ/L BUN 18 (9-20) mg/dL Creatinine 1.37 H (0.66-1.25) mg/dL Estimated GFR 58.0 ML/MIN Glucose 94 (74-106) mg/dL Calcium 9.0 (8.4-10.2) mg/dL Total Bilirubin 0.50 (0.2-1.3) mg/dL AST 32 (17-59) U/L ALT 49 (0-50) U/L Alkaline Phosphatase 74 (38-126) U/L Troponin I < 0.012 (0.000-0.034) ng/mL Serum Total Protein 6.9 (6.3-8.2) g/dL Albumin 4.1 (3.5-5.0) g/dL Urine Color Yellow (Yellow) Urine Appearance Clear (Clear) Urine pH 5.5 (4.6-8.0) Ur Specific [place] 1.020 (1.005-1.030) Urine Protein Negative (Negative) Urine Glucose (UA) Negative (Negative) mg/dL Urine Ketones Trace A (Negative) Urine Blood Negative (Negative) Urine Nitrite Negative (Negative) Urine Bilirubin Negative (Negative) Urine Urobilinogen 0.2 (0.2) mg/dL Ur Leukocyte Esterase Negative (Negative) U Hyaline Cast (Auto) NONE SEEN (0-2) /LPF Urine Microscopic RBC 0-2 (0-5) /HPF Urine Microscopic WBC 0-2 (0-5) /HPF Ur Epithelial Cells None Seen (None Seen) /HPF Urine Bacteria None Seen (None Seen) /HPF Urine Culture Reflexed NO (NO) 11/07/22 Range/Units 15:32 WBC 6.1 (4.0-10.5) x10^3/uL RBC 4.33 (4.1-5.6) x10^6/uL Hgb 12.9 (12.5-18.0) g/dL Hct 39.8 L (42-50) % MCV 91.9 (78-100) fL MCH 29.8 (26-32) pg MCHC 32.4 (32-36) g/dL RDW 14.2 H (11.5-14.0) % Plt Count 179 (150-450) x10^3/uL MPV 11.2 H (7.5-11.0) fL Gran % 61.8 (36.0-66.0) % Immature Gran % (Auto) 0.2 (0.00-0.4) % Nucleat RBC Rel Count 0.0 (0.00-0.1) % Eos # (Auto) 0.24 (0-0.5) x10^3/uL Immature Gran # (Auto) 0.01 (0.00-0.03) x10^3u/L Absolute Lymphs (auto) 1.46 (1.0-4.6) x10^3/uL Absolute Monos (auto) 0.56 (0.0-1.3) x10^3/uL Absolute Nucleated RBC 0.00 (0.00-0.01) x10^3u/L Lymphocytes % 24.1 (24.0-44.0) % Monocytes % 9.2 (0.0-12.0) % Eosinophils % 4.0 (0.00-5.0) % Basophils % 0.7 (0.0-0.4) % Absolute Granulocytes 3.76 (1.4-6.9) x10^3/uL Basophils # 0.04 (0-0.4) x10^3/uL Sodium (137-145) mmol/L Potassium (3.5-5.1) mmol/L Chloride (98-107) mmol/L Carbon Dioxide (22-30) mmol/L Anion Gap (5-15) MEQ/L BUN (9-20) mg/dL Creatinine (0.66-1.25) mg/dL Estimated GFR ML/MIN Glucose (74-106) mg/dL Calcium (8.4-10.2) mg/dL Total Bilirubin (0.2-1.3) mg/dL AST (17-59) U/L ALT (0-50) U/L Alkaline Phosphatase (38-126) U/L Troponin I (0.000-0.034) ng/mL Serum Total Protein (6.3-8.2) g/dL Albumin (3.5-5.0) g/dL Urine Color (Yellow) Urine Appearance (Clear) Urine pH (4.6-8.0) Ur Specific [place] (1.005-1.030) Urine Protein (Negative) Urine Glucose (UA) (Negative) mg/dL Urine Ketones (Negative) Urine Blood (Negative) Urine Nitrite (Negative) Urine Bilirubin (Negative) Urine Urobilinogen (0.2) mg/dL Ur Leukocyte Esterase (Negative) U Hyaline Cast (Auto) (0-2) /LPF Urine Microscopic RBC (0-5) /HPF Urine Microscopic WBC (0-5) /HPF Ur Epithelial Cells (None Seen) /HPF Urine Bacteria (None Seen) /HPF Urine Culture Reflexed (NO) - Progress Progress: improved Progress Note: 11/07/22 18:56 Nursing note and vital signs reviewed No food or housing insecurities noted Pain abated w 50mcg IV Fentanyl/4mg IV Zofran 11/07/22 18:58 BP treated w Labetalol 20mg IV x1/Vasotec 1.25mg IV x2/20mg IV Hydralyzine All lab results reviewed and shared w pt and later daughter CT result reviewed and shared w pt/daughter No evidence of ureterolithiasis/UTI/AAA/MN during stay Pt advised to f/u w his PCP and/or dental equipment repairer and to continue current meds Counseled pt/family regarding: lab results, diagnosis, need for follow-up, rad results Medical Desision Making - Independent Historian Additional History obtained from: Child - Diagnostic Testing Diagnostic test were ordered, analyzed, and reviewed by me: Yes Radiological Interpretation: Reviewed by me, Discussed w/ radiologist - Risk of complications The pt has a mod risk of morbidity or mortality based on: Need for prescription drug management - Departure Departure Disposition: Home Clinical Impression: Back pain, Hypertensive urgency Condition: Stable Critical Care Time: No Referrals: PHOEBE SUAREZ MD [Primary Care Provider] - Follow up/PCP as directed Instructions: High Blood Pressure (DC), Low Back Pain (DC), High Blood Pressure Emergencies Additional Instructions: Continue current meds Follow up with your family MD or dental equipment repairer next week Return to ER for increasing pain, blood in your urine, or temperature greater than 100.5
[2022-11-07] MEDS ORDERED: ENALAPRILAT 2.5 MG INJECTION IV ONE ×4 (16:48→17:37)
[2022-11-07 17:35] VITALS: PULSE 87
[2022-11-07] MEDS ORDERED: APRESOLINE 20 MG/ML INJ IV ONE (18:14)
[2022-11-07] MEDS ORDERED: APRESOLINE 20 MG/ML INJ ONE (18:16)
[2022-11-07 18:51] VITALS: BP 169/89
[2022-11-07 18:56] VITALS: O2SAT 99
== END 2022-11-07 19:09 | disposition home or self-care (01) ==
LOC: ED 14:31
DX: I16.0 Hypertensive urgency (principal); I10 Essential (primary) hypertension; M54.9 Dorsalgia, unspecified; R10.9 Unspecified abdominal pain; E78.5 Hyperlipidemia, unspecified; Z79.02 Long term (current) use of antithrombotics/antiplatelets; Z79.899 Other long term (current) drug therapy; Z28.310 Unvaccinated for COVID-19
CPT/HCPCS: 36000; 36415; 74176; 80053; 81001; 84484; 85025; 93005; 96374; 96375; 96376; 99284; J0360; J2405; J3010

== ENCOUNTER 2023-01-28 15:52 | Emergency (ER) | payer OTHER ==
--- NOTE | 2023-01-28 16:00 | ERPHSYRPT ---
- History of Present Illness Time Seen by Provider: 01/28/23 16:00 Source: patient, family Exam Limitations: no limitations Physician History: This a 53-year-old white male patient of Dr. Suarez who presents with what he described as right scrotal swelling that started 6 days ago increased in size. Approximately 2 days ago he was having tenderness in the same area and therefore he contacted his primary care provider who he saw on 01/26/2023 and who did not call a new medication in for him but did make an appointment to see urologist Dr. Brito in [facility]. The pain was increased on 01/27/2023 and worse today and he was told by his primary care physician's office to come to the emergency room for evaluation. Patient has a history of hyperlipidemia, hypertension gastroesophageal reflux disease. Patient is no longer on Plavix. Timing/Duration: yesterday, day(s) (6), worse Quality: sharpness, stabbing Onset Location: other (Right side of scrotal and perineal junction) Severity of Pain-Max: moderate Severity of Pain-Current: moderate Modifying Factors: Improves With: palpation (Worsens) Associated Symptoms: denies symptoms Prior abdominal problems: none Sexual intercourse history: non-contributory Allergies/Adverse Reactions: Iodinated Contrast Media [Iodinated Contrast Media - IV Dye] Allergy (Mild, Verified 01/28/23 16:01) Hives Home Medications: lisinopriL [Lisinopril] 20 mg PO BID 04/20/21 [History] Atorvastatin Calcium [Lipitor] 10 mg PO HS 02/13/22 [History] Clonidine HCl 0.1 mg [Clonidine 0.1 mg Tablet] 0.1 mg PO BID 02/13/22 [History] Furosemide 40 mg [Lasix 40 MG] 40 mg PO DAILY 02/13/22 [History] Hydralazine HCl 1 tab PO TID 02/13/22 [History] PANTOPRAZOLE 40 mg Tablet [Protonix 40MG Tablet] 40 mg PO QAM 02/13/22 [History] Labetalol HCl 100 mg [Trandate 100 MG] 300 mg PO BID 01/28/23 [History] Hx Tetanus, Diphtheria Vaccination/Date Given: Yes Hx Influenza Vaccination/Date Given: No Hx Pneumococcal Vaccination/Date Given: No Travel Risk - International Travel Have you traveled outside of the country in past 3 weeks: No - Coronavirus Screening Are you exhibiting any of the following symptoms?: No Close contact with a COVID-19 positive Pt in past 14-21 Days: No - Vaccine Status Have you recieved a Covid-19 vaccination: No - Past Medical History Pertinent Past Medical History: Yes Neurological History: No Pertinent History ENT History: No Pertinent History Cardiac History: High Cholesterol, Hypertension Respiratory History: No Pertinent History Endocrine Medical History: No Pertinent History Musculoskeletal History: No Pertinent History GI Medical History: No Pertinent History History: Other Psycho-Social History: No Pertinent History Male Reproductive Disorders: No Pertinent History Other Medical History: Decresed kidney function - Past Surgical History Past Surgical History: Yes Neuro Surgical History: No Pertinent History Cardiac: No Pertinent History Respiratory: No Pertinent History Gastrointestinal: No Pertinent History Genitourinary: No Pertinent History Musculoskeletal: Orthopedic Surgery Male Surgical History: No Pertinent History Other Surgical History: L collar bone fx, compound fx L arm, bone out of hip and placed in wrist, fx left 5th finger - Social History Smoking Status: Never smoker Exposure to second hand smoke: No Drug Use: none Patient Lives Alone: No Significant Family History: no pertinent family hx - Review of Systems Constitutional: No Symptoms Eyes: No Symptoms Ears, Nose, & Throat: No Symptoms Respiratory: No Symptoms Cardiac: No Symptoms Abdominal/Gastrointestinal: No Symptoms Genitourinary Symptoms: Other (Right scrotal/testicular pain per patient report) Musculoskeletal: No Symptoms Skin: No Symptoms Neurological: No Symptoms Psychological: No Symptoms Endocrine: No Symptoms Hematologic/Lymphatic: No Symptoms Immunological/Allergic: No Symptoms All Other Systems: Reviewed and Negative - Nursing Vital Signs Nursing Vital Signs: Initial Vital Signs Temperature 98.2 F 01/28/23 15:53 Pulse Rate 92 H 01/28/23 15:53 Respiratory Rate 17 01/28/23 15:53 Blood Pressure 133/63 01/28/23 15:53 O2 Sat by Pulse Oximetry 96 01/28/23 15:53 Pain Scale Pain Intensity 6 - Physical Exam General Appearance: no apparent distress, alert, anxiety, obese Eye Exam: PERRL/EOMI, eyes nml inspection Ears, Nose, Throat Exam: normal ENT inspection, moist mucous membranes Neck Exam: normal inspection Respiratory Exam: normal breath sounds, lungs clear, airway intact, No chest tenderness, No respiratory distress Cardiovascular Exam: regular rate/rhythm, normal heart sounds, normal peripheral pulses Gastrointestinal/Abdomen Exam: soft, normal bowel sounds, No tenderness Rectal Exam: not done Male Genital Exam: normal genitalia (There is no right side cord or testicular pain with palpation. However there is a subcutaneous abscess right side of perinealscrotal junction.) Back Exam: normal inspection, normal range of motion, No CVA tenderness, No vertebral tenderness Extremity Exam: normal inspection, normal range of motion, pelvis stable Neurologic Exam: alert, oriented x 3, cooperative, investment recovery technician II-XII nml as tested, normal mood/affect, nml cerebellar function, nml station & gait, sensation nml, other Skin Exam: other (Perineal abscess right side) Lymphatic Exam: No adenopathy SpO2 Interpretation: normal O2 Delivery: Room Air Procedures - Incision and Drainage Time of Procedure: 16:45 Anesthesia: 1% Lidocaine cc's of anesthesia: other (8) Blade Size: 15 I & D Procedure: hibiclens prep, culture obtained, gauze wick placed Results: small amount pus - Course Nursing assessment & vital signs reviewed: Yes Ordered Tests: Active Orders 24 hr Category Date Time Status TESTICLE [US] Stat Exams 01/28/23 16:49 Ordered Medication Summary Discontinued Medications Generic Name Dose Route Start Last Admin Trade Name Fili PRN Reason Stop Dose Admin Lidocaine HCl Confirm 01/28/23 16:29 Lidocaine Hcl 1% 20 Ml Mdv 20 Ml Ml Administered 01/28/23 16:30 Dose 10 ml .ROUTE .STK-MED ONE Lidocaine HCl 10 ml 01/28/23 16:34 01/28/23 16:35 Lidocaine Hcl 1% 20 Ml Mdv 20 Ml Ml IJ 01/28/23 16:35 10 ml STAT ONE Administration - Progress Progress: improved, pain not gone completely, re-examined Progress Note: 01/28/23 16:51 This patient's medical issue is 1 of low to moderate complexity. Level complexity in the work-up performed based on review of the patient's past medical history, review of the patient's medication list, review the patient's drug allergy list, history of present illness and physical findings on examination. Work-up in this patient includes incision and drainage of right perineal abscess with culture of the abscess site, ultrasound of the right scrotum and testicle to evaluate for extension of this abscess. We are awaiting the right scrotal/testicular ultrasound results. 01/28/23 16:52 Counseled pt/family regarding: diagnosis, need for follow-up, rad results Medical Desision Making - Independent Historian Additional History obtained from: Spouse - Diagnostic Testing Radiological Interpretation: Reviewed by me, Teleradiologist Report - Risk of complications The pt has a mod risk of morbidity or mortality based on: Need for prescription drug management - Departure Departure Disposition: Home Clinical Impression: Perineal abscess, superficial Condition: Stable Critical Care Time: No Referrals: PHOEBE SUAREZ MD [Primary Care Provider] - Follow up/PCP as directed Additional Instructions: Take the antibiotics and pain medicine as prescribed. Drink plenty of fluids. Sitz bath with warm soapy water or warm Epsom salt water twice a day. Before you soak in the bath remove the plain gauze packing then after you take a bath put in a small amount of the packing. Continue this. Expect some bleeding over the next 3 to 5 days from the site. However this should be decreasing. Follow- up with your primary care provider or the emergency department if you are having increased pain or increased bleeding. Prescriptions: Oxycodone HCl/Acetaminophen [Percocet 5-325 mg Tablet] 1 each PO Q8H PRN PRN #6 tablet MDD 3 PRN Reason: Moderate To Severe Pain Amoxicillin/Potassium Clav [Augmentin 500-125 Tablet] 1 each PO TID 7 Days #21 tablet
[2023-01-28] MEDS ORDERED: XYLOCAINE 1% HCL 20 ML MDV ONE (16:29)
[2023-01-28 16:30] VITALS: TEMP 98.2
[2023-01-28] MEDS ORDERED: XYLOCAINE 1% HCL 20 ML MDV IJ ONE (16:34)
[2023-01-28] MEDS ORDERED: Augmentin 500-125 Tablet PO ONE (16:59)
[2023-01-28] MEDS ORDERED: PERCOCET TABLET 5/325MG PO STA (16:59)
[2023-01-28] MEDS ORDERED: PERCOCET TABLET 5/325MG ONE (17:02)
[2023-01-28] MEDS ORDERED: Augmentin 500-125 Tablet ONE (17:02)
[2023-01-28 17:12] VITALS: PULSE 80
[2023-01-28 17:36] VITALS: BP 148/87; RESP 17; O2SAT 95
--- NOTE | 2023-01-28 18:09 | XRAY ---
Indication: Right scrotal pain. Status post drainage right superficial scrotal abscess. Two-dimensional testicular sonogram performed. Comparison: August 09, 2015 Both testicles are homogeneous in echogenicity with normal perfusion. Right testicle measures 5.2 x 2.9 x 4.2 cm and the left measures 5.1 x 3.2 x 3.7 cm. Left and right epididymis are bilaterally symmetric. New nonspecific bilateral scrotal hydroceles, right greater than left. No suspicious solid extratesticular mass. Impression: New bilateral scrotal hydroceles. Remaining testicular sonogram is negative. Common: Preliminary report was given.
== END 2023-01-28 17:50 | disposition home or self-care (01) ==
LOC: ED 15:52
DX: L02.215 Cutaneous abscess of perineum (principal); N43.3 Hydrocele, unspecified; N50.82 Scrotal pain; E78.5 Hyperlipidemia, unspecified; I10 Essential (primary) hypertension; Z79.899 Other long term (current) drug therapy; Z28.310 Unvaccinated for COVID-19
CPT/HCPCS: 10060; 36000; 76870; 87070; 87077; 87186; 96372; 99284; A9270-GY

== ENCOUNTER 2023-06-26 18:42 | Emergency (ER) | payer OTHER ==
[2023-06-26 19:00] VITALS: TEMP 97.8
--- NOTE | 2023-06-26 19:04 | ERPHSYRPT ---
- History of Present Illness Time Seen by Provider: 06/26/23 19:04 Source: patient, family Exam Limitations: no limitations Patient Subjective Stated Complaint: back pain for 2 days on the Right. pt states it feels like a spasm and comes in waves. also having increased uri nation. Triage Nursing Assessment: Pt to ER with complaints of R side back pain. pt pwd, ambulatory. Physician History: This is a 53-year-old white male patient of Dr. Suarez who presents with 2-day history of localized right lower back pain. He describes an intermittent spasms that are very sharp when they hit. He is also noticed increased urination. He has not noticed any blood present. Patient does have mild kidney disease. Patient denies fall or trauma. The spine itself does not hurt it is the muscles to the right lower side of the spinal column. Patient has a history of hypertension, hyperlipidemia and gastroesophageal reflux disease as well. Patient does not have shortness of breath or chest pain Timing/Duration: day(s) (2) Method of Injury: unknown Quality: sharp, aching Back Pain Location: paraspinous muscles (Right side lumbar level) Severity of Pain-Max: moderate Severity of Pain-Current: moderate Modifying Factors: Improves With: movement Associated Symptoms: lower back pain, muscle spasms, No urinary incontinence, No loss of bowel control, No problems urinating, No numbness in legs/feet, No sensory/motor loss, No tingling in legs/feet Previous symptoms: no prior history, no recent treatment Allergies/Adverse Reactions: Iodinated Contrast Media [Iodinated Contrast Media - IV Dye] Allergy (Mild, Verified 06/26/23 19:01) Hives Home Medications: lisinopriL [Lisinopril] 20 mg PO BID 04/20/21 [History] Atorvastatin Calcium [Lipitor] 10 mg PO HS 02/13/22 [History] Clonidine HCl 0.1 mg [Clonidine 0.1 mg Tablet] 0.1 mg PO BID 02/13/22 [History] Furosemide 40 mg [Lasix 40 MG] 40 mg PO DAILY 02/13/22 [History] Hydralazine HCl 1 tab PO TID 02/13/22 [History] PANTOPRAZOLE 40 mg Tablet [Protonix 40MG Tablet] 40 mg PO QAM 02/13/22 [History] Labetalol HCl 100 mg [Trandate 100 MG] 300 mg PO BID 01/28/23 [History] Hx Tetanus, Diphtheria Vaccination/Date Given: Yes Hx Influenza Vaccination/Date Given: No Hx Pneumococcal Vaccination/Date Given: No Travel Risk - International Travel Have you traveled outside of the country in past 3 weeks: No - Coronavirus Screening Are you exhibiting any of the following symptoms?: No Close contact with a COVID-19 positive Pt in past 14-21 Days: No - Vaccine Status Have you recieved a Covid-19 vaccination: No - Review of Systems Constitutional: No Symptoms Eyes: No Symptoms Ears, Nose, & Throat: No Symptoms Respiratory: No Symptoms Cardiac: No Symptoms Abdominal/Gastrointestinal: No Symptoms Genitourinary Symptoms: No Symptoms Musculoskeletal: Back Pain (Low back pain right paraspinous muscle lumbar level) Skin: No Symptoms Neurological: No Symptoms Psychological: No Symptoms Endocrine: No Symptoms Hematologic/Lymphatic: No Symptoms Immunological/Allergic: No Symptoms All Other Systems: Reviewed and Negative - Past Medical History Pertinent Past Medical History: Yes Neurological History: No Pertinent History ENT History: No Pertinent History Cardiac History: High Cholesterol, Hypertension Respiratory History: No Pertinent History Endocrine Medical History: No Pertinent History Musculoskeletal History: No Pertinent History GI Medical History: No Pertinent History History: Other Psycho-Social History: No Pertinent History Male Reproductive Disorders: No Pertinent History Other Medical History: Decresed kidney function - Past Surgical History Past Surgical History: Yes Neuro Surgical History: No Pertinent History Cardiac: No Pertinent History Respiratory: No Pertinent History Gastrointestinal: No Pertinent History Genitourinary: No Pertinent History Musculoskeletal: Orthopedic Surgery Male Surgical History: No Pertinent History Other Surgical History: L collar bone fx, compound fx L arm, bone out of hip and placed in wrist, fx left 5th finger - Social History Smoking Status: Never smoker Exposure to second hand smoke: No Drug Use: none Patient Lives Alone: No Significant Family History: no pertinent family hx - Nursing Vital Signs Nursing Vital Signs: Initial Vital Signs Temperature 97.8 F 06/26/23 18:53 Pulse Rate 79 06/26/23 18:53 Respiratory Rate 18 06/26/23 18:53 Blood Pressure 160/103 06/26/23 18:53 O2 Sat by Pulse Oximetry 97 06/26/23 18:53 Pain Scale Pain Intensity [Right Back] 4 Pain Intensity 6 - Physical Exam General Appearance: no apparent distress, alert, anxiety Eye Exam: PERRL/EOMI, eyes nml inspection Ears, Nose, Throat Exam: normal ENT inspection, moist mucous membranes Neck Exam: normal inspection, non-tender, supple, full range of motion Respiratory Exam: airway intact, No chest tenderness, No respiratory distress Gastrointestinal Exam: No tenderness Rectal Exam: not done Back Exam: normal inspection, decreased range of motion, muscle spasm (Right lower back lumbar level paraspinous muscle), No CVA tenderness, No vertebral tenderness Extremity Exam: normal inspection, normal range of motion, pelvis stable Neurologic Exam: alert, oriented x 3, cooperative, house worker general II-XII nml as tested, normal mood/affect, nml cerebellar function, nml station & gait, sensation nml Skin Exam: normal color, warm, dry Lymphatic Exam: No adenopathy SpO2 Interpretation: normal SpO2: 97 O2 Delivery: Room Air - Course Nursing assessment & vital signs reviewed: Yes Ordered Tests: Active Orders 24 hr Category Date Time Status UA W/RFX UR CULTURE Stat Lab 06/26/23 19:45 Completed Medication Summary Discontinued Medications Generic Name Dose Route Start Last Admin Trade Name Freq PRN Reason Stop Dose Admin Methylprednisolone Sodium 0 mg 06/26/23 20:32 Succinate 125 mg/ Sterile IM 06/26/23 20:33 Water 2 ml STAT ONE Orphenadrine Citrate 60 mg 06/26/23 20:31 Orphenadrine Citrate 60 Mg/2 Ml Vial IM 06/26/23 20:32 STAT ONE Oxycodone/Acetaminophen 1 tab 06/26/23 20:31 Oxycodone Hcl/Apap 5 Mg/325 Mg Tablet PO 06/26/23 20:32 STAT STA Lab/Rad Data: Laboratory Results 06/26/23 Range/Units 19:45 Urine Color Yellow (Yellow) Urine Appearance Clear (Clear) Urine pH 5.5 (4.6-8.0) Ur Specific [place] 1.015 (1.005-1.030) Urine Protein Negative (Negative) Urine Glucose (UA) Negative (Negative) mg/dL Urine Ketones Negative (Negative) Urine Blood Negative (Negative) Urine Nitrite Negative (Negative) Urine Bilirubin Negative (Negative) Urine Urobilinogen 1.0 A (0.2) mg/dL Ur Leukocyte Esterase Negative (Negative) U Hyaline Cast (Auto) NONE SEEN (0-2) /LPF Urine Microscopic RBC 0-2 (0-5) /HPF Urine Microscopic WBC 0-2 (0-5) /HPF Ur Epithelial Cells None Seen (None Seen) /HPF Urine Bacteria None Seen (None Seen) /HPF Urine Culture Reflexed NO (NO) - Progress Progress: improved, pain not gone completely Progress Note: 06/26/23 20:46 This patient's medical issue is 1 of low complexity. The level of complexity and the workup performed is based on review of the patient's past medical history, review of the patient's medication list, review of the patient's drug a llergy list, history of present illness and physical findings on examination. The workup in this patient includes urinalysis but no radiographic studies. 06/26/23 20:47 I interpreted the urinalysis. There is no evidence of urinary tract infection and no hematuria present. Counseled pt/family regarding: diagnosis, need for follow-up Medical Desision Making - Independent Historian Additional History obtained from: Spouse - Diagnostic Testing Diagnostic test were ordered, analyzed, and reviewed by me: Yes - Risk of complications The pt has a mod risk of morbidity or mortality based on: Need for prescription drug management - Departure Departure Disposition: Home Clinical Impression: Spasm of muscle of lower back Condition: Stable Critical Care Time: No Referrals: PHOEBE SUAREZ MD [Primary Care Provider] - Follow up/PCP as directed Additional Instructions: Take your muscle relaxant and steroid as prescribed. Take your other medicines as prescribed. Follow-up with your primary care provider on 06/29/2023 to make a follow-up appointment for further evaluation management in the next 3 to 5 days Prescriptions: Prednisone 10 mg [Deltasone 10 mg] 10 mg PO TID #12 tablet Orphenadrine Citrate 100 mg [Norflex 100 MG Tablet] 100 mg PO BID #10 tab
[2023-06-26 19:57] LABS: Appearance Clear (Clear); Bacteria None Seen /HPF (None Seen); Bilirubin Negative (Negative); Blood Negative (Negative); Epithelial Cells None Seen /HPF (None Seen); Glucose, Urine Negative (Negative); Hyaline Casts NONE SEEN /LPF (0-2); Ketones Negative (Negative); Leukocyte Esterase Negative (Negative); Nitrite Negative (Negative); Ph 5.5 (4.6-8.0); Protein,Urine Dip Negative (Negative); RBC 0-2 /HPF (0-5); Specific Gravity 1.015 (1.005-1.030); WBC 0-2 /HPF (0-5)
[2023-06-26 19:58] LABS: ADD URINE CULTURE? NO (NO)
[2023-06-26 20:13] VITALS: RESP 20
[2023-06-26] MEDS ORDERED: Norflex 60 MG/2 ML IM ONE (20:31)
[2023-06-26] MEDS ORDERED: PERCOCET TABLET 5/325MG PO STA (20:31)
[2023-06-26] MEDS ORDERED: solu-MEDROL 125 MG, Sterile H2O 10 ml 2 ML IM ONE ×2 (20:32)
[2023-06-26] MEDS ORDERED: Norflex 60 MG/2 ML ONE (20:58)
[2023-06-26] MEDS ORDERED: Sterile H2O 10 ml IJ ONE (20:58)
[2023-06-26] MEDS ORDERED: PERCOCET TABLET 5/325MG ONE (20:58)
[2023-06-26] MEDS ORDERED: solu-MEDROL ONE (20:59)
[2023-06-26 21:27] VITALS: BP 156/97; PULSE 67; O2SAT 96
== END 2023-06-26 21:30 | disposition home or self-care (01) ==
LOC: ED 18:42
DX: M62.830 Muscle spasm of back (principal); I10 Essential (primary) hypertension; E78.5 Hyperlipidemia, unspecified; Z79.52 Long term (current) use of systemic steroids; Z79.899 Other long term (current) drug therapy; Z28.310 Unvaccinated for COVID-19
CPT/HCPCS: 81001; 96372; 99283; J2360; J2930; A9270-GY

== ENCOUNTER 2023-11-24 18:40 | Emergency (ER) | payer OTHER ==
[2023-11-24 19:00] VITALS: TEMP 97.8
--- NOTE | 2023-11-24 19:27 | ERPHSYRPT ---
- History of Present Illness Time Seen by Provider: 11/24/23 19:27 Historian: patient Exam Limitations: no limitations Patient Subjective Stated Complaint: pt here for n/v/d for 2 days now, states today he is worried about hes gallbladder,no fever Triage Nursing Assessment: pt alert, walked in, resp easy, skin w/d/p, abd soft, pain to upper right side of abd, moves all ext well Physician History: The patient presents with a three-day history of vomiting and diarrhea, which has led to severe dehydration and fatigue due to inability to retain food or water. The vomiting is described as 'excessive,' and the diarrhea occurs two to three times a day. He reports mild abdominal pain, which he attributes to the frequency of vomiting. He denies hematemesis and melena. The patient has a history of similar episodes, which have been increasing in frequency from twice a year to more recent flare-ups. He has been prescribed Phenergan for these episodes, which seems to provide some relief. He also reports a history of open heart surgery but denies any significant alcohol consumption. Timing/Duration: day(s) (3) Activities at Onset: rest Quality: sharpness Abdominal Pain Onset Location: RLQ, LLQ Pain Radiation: no radiation Severity of Pain-Max: moderate Severity of Pain-Current: moderate Modifying Factors: Worsens With: defecating, palpation, vomiting Associated Symptoms: diarrhea, fatigue, loss of appetite, nausea, vomiting, No back, No chest pain, No fever/chills Previous symptoms: same symptoms as today Allergies/Adverse Reactions: Iodinated Contrast Media [Iodinated Contrast Media - IV Dye] Allergy (Mild, Verified 11/24/23 18:57) Hives Home Medications: lisinopriL [Lisinopril] 20 mg PO BID 04/20/21 [History] Atorvastatin Calcium [Lipitor] 10 mg PO HS 02/13/22 [History] Clonidine HCl 0.1 mg [Clonidine 0.1 mg Tablet] 0.1 mg PO BID 02/13/22 [History] Furosemide 40 mg [Lasix 40 MG] 40 mg PO DAILY 02/13/22 [History] Hydralazine HCl 1 tab PO TID 02/13/22 [History] PANTOPRAZOLE 40 mg Tablet [Protonix 40MG Tablet] 40 mg PO QAM 02/13/22 [History] Labetalol HCl 100 mg [Trandate 100 MG] 300 mg PO BID 01/28/23 [History] Hx Tetanus, Diphtheria Vaccination/Date Given: Yes Hx Influenza Vaccination/Date Given: No Hx Pneumococcal Vaccination/Date Given: No Immunizations Up to Date: Yes Travel Risk - International Travel Have you traveled outside of the country in past 3 weeks: No - Emerging Infectious Disease Are you exhibiting symptoms associated with any current EIDs: Yes Symptoms: Abdominal Pain, Diarrhea, Vomitting - Review of Systems All Other Systems: Reviewed and Negative - Past Medical History Pertinent Past Medical History: Yes Neurological History: No Pertinent History ENT History: No Pertinent History Cardiac History: Coronary Artery Disease, High Cholesterol, Hypertension Respiratory History: No Pertinent History Endocrine Medical History: No Pertinent History Musculoskeletal History: No Pertinent History GI Medical History: No Pertinent History History: Other Psycho-Social History: No Pertinent History Male Reproductive Disorders: No Pertinent History Other Medical History: Decresed kidney function - Past Surgical History Past Surgical History: Yes Neuro Surgical History: No Pertinent History Cardiac: CABG Respiratory: No Pertinent History Gastrointestinal: No Pertinent History Genitourinary: No Pertinent History Musculoskeletal: Orthopedic Surgery Male Surgical History: No Pertinent History Other Surgical History: L collar bone fx, compound fx L arm, bone out of hip and placed in wrist, fx left 5th finger Significant Family History: no pertinent family hx - Social History Smoking Status: Never smoker Exposure to second hand smoke: No Drug Use: none Patient Lives Alone: No - Social Determinants of Health Will the patient participate in the screening: Yes Do you worry about a steady place to live?: No Do you have any problems with any of the following?: No known problems In the past 12 months,have you had to go without utilities?: No Transportation Issues: Yes Has anyone in your support network made you feel unsafe?: No Have you or anyone in your house had to go without enough: No - Nursing Vital Signs Nursing Vital Signs: Initial Vital Signs Temperature 97.8 F 11/24/23 18:59 Pulse Rate 117 H 11/24/23 18:59 Blood Pressure 141/100 11/24/23 18:59 Pain Scale Pain Intensity 5 - Physical Exam General Appearance: mild distress Eye Exam: eyes nml inspection Neck Exam: normal inspection, non-tender, supple, full range of motion Cardiovascular Exam: tachycardia, capillary refill <2 sec Gastrointestinal/Abdomen Exam: soft, tenderness (RLQ, LLQ), No distention, No mass, No guarding, No rebound Back Exam: No CVA tenderness Neurologic Exam: alert, oriented x 3, cooperative Skin Exam: normal color, warm, No rash SpO2 Interpretation: normal O2 Delivery: Room Air - Course Nursing assessment & vital signs reviewed: Yes Ordered Tests: Active Orders 24 hr Category Date Time Status IV Insertion STAT Care 11/24/23 19:32 Completed ABDOMEN AND PELVIS W/0 CONTRAS [CT] Stat Exams 11/24/23 19:28 Completed CBC W DIFF Stat Lab 11/24/23 19:40 Completed CMP Stat Lab 11/24/23 19:40 Completed LIPASE Stat Lab 11/24/23 19:40 Completed Lactic Acid Stat Lab 11/24/23 19:30 Completed TROPONIN Q4H Lab 11/24/23 19:40 Completed UA W/RFX UR CULTURE Stat Lab 11/24/23 19:53 Completed Medication Summary Discontinued Medications Generic Name Dose Route Start Last Admin Trade Name Fili PRN Reason Stop Dose Admin Ciprofloxacin 500 mg 11/25/23 10:00 11/24/23 22:07 Ciprofloxacin 500 Mg Tablet PO 11/25/23 10:01 500 mg ONCE ONE Administration Ciprofloxacin Confirm 11/24/23 22:06 Ciprofloxacin 500 Mg Tablet Administered 11/24/23 22:07 Dose 500 mg .ROUTE .STK-MED ONE Droperidol 1.25 mg 11/24/23 19:30 11/24/23 19:38 Droperidol 5 Mg/2 Ml Vial IV 11/24/23 19:31 1.25 mg STAT ONE Administration Droperidol Confirm 11/24/23 19:34 Droperidol 5 Mg/2 Ml Vial Administered 11/24/23 19:35 Dose 5 mg .ROUTE .STK-MED ONE Sodium Chloride 1,000 mls @ 999 mls/hr 11/24/23 19:27 11/24/23 20:38 Sodium Chloride 0.9% 1000 Ml IV 11/24/23 20:27 Infused .Q1H1M STA Infusion Sodium Chloride Confirm 11/24/23 19:34 Sodium Chloride 0.9% 1000 Ml Administered 11/24/23 19:35 Dose 1,000 mls @ ud .ROUTE .STK-MED ONE Metronidazole 500 mg 11/24/23 22:03 11/24/23 22:07 Metronidazole 500 Mg Tablet PO 11/24/23 22:04 500 mg STAT ONE Administration Metronidazole Confirm 11/24/23 22:06 Metronidazole 500 Mg Tablet Administered 11/24/23 22:07 Dose 500 mg .ROUTE .STK-[facility] ONE Pantoprazole Sodium 40 mg 11/24/23 19:27 11/24/23 19:33 Protonix (Pantoprazole) 40 Mg Tablet PO 11/24/23 19:28 Not Given STAT ONE Pantoprazole Sodium 40 mg 11/24/23 19:33 11/24/23 19:38 Pantoprazole 40 Mg Vial IV 11/24/23 19:34 40 mg STAT ONE Administration Pantoprazole Sodium Confirm 11/24/23 19:34 Pantoprazole 40 Mg Vial Administered 11/24/23 19:35 Dose 40 mg IV .[facility] ONE Lab/Rad Data: Laboratory Result Diagrams 11/24/23 19:40 11/24/23 19:40 Laboratory Results 11/24/23 11/24/23 11/24/23 Range/Units 19:53 19:40 19:40 WBC (4.23-9.07) x10^3/uL RBC (4.63-6.08) x10^6/uL Hgb (13.7-17.5) g/dL Hct (40.1-51.0) % MCV (79.0-92.2) fL MCH (25.7-32.2) pg MCHC (32.3-36.5) g/dL RDW (11.6-14.4) % Plt Count (163-337) x10^3/uL MPV (9.4-12.4) fL Gran % (34.0-67.9) % Immature Gran % (Auto) (0.001-0.429) % Nucleat RBC Rel Count (0.00-0.2) % Eos # (Auto) (0.04-0.54) x10^3/uL Immature Gran # (Auto) (0.001-0.031) x10^3u/L Absolute Lymphs (auto) (1.32-3.57) x10^3/uL Absolute Monos (auto) (0.30-0.82) x10^3/uL Absolute Nucleated RBC (0.00-0.012) x10^3u/L Lymphocytes % (21.8-53.1) % Monocytes % (5.3-12.2) % Eosinophils % (0.8-7.0) % Basophils % (0.2-1.2) % Absolute Granulocytes (1.78-5.38) x10^3/uL Basophils # (0.01-0.08) x10^3/uL Sodium 141 (135-145) mmol/L Potassium 3.8 (3.5-5.1) mmol/L Chloride 111 H (98-107) mmol/L Carbon Dioxide 19 L (22-30) mmol/L Anion Gap 15.1 H (5-15) MEQ/L BUN 27 H (9-20) mg/dL Creatinine 1.88 H (0.66-1.25) mg/dL Estimated GFR 42.2 ML/MIN Glucose 125 H (74-106) mg/dL Lactic Acid (0.4-2.0) Calcium 9.0 (8.4-10.2) mg/dL Total Bilirubin 0.80 (0.2-1.3) mg/dL AST 20 (17-59) U/L ALT 29 (0-50) U/L Alkaline Phosphatase 87 (38-126) U/L Troponin I < 0.012 (0.000-0.033) ng/mL Serum Total Protein 6.8 (6.3-8.2) g/dL Albumin 4.0 (3.5-5.0) g/dL Lipase 68 (23-300) U/L Urine Color Dark Yellow (Yellow) Urine Appearance Clear (Clear) Urine pH 5.0 (4.6-8.0) Ur Specific [place] 1.025 (1.005-1.030) Urine Protein 100 A (Negative) Urine Glucose (UA) Negative (Negative) mg/dL Urine Ketones Trace A (Negative) Urine Blood Negative (Negative) Urine Nitrite Negative (Negative) Urine Bilirubin Negative (Negative) Urine Urobilinogen 0.2 (0.2) mg/dL Ur Leukocyte Esterase Negative (Negative) U Hyaline Cast (Auto) 11-20 (0-2) /LPF Urine Microscopic RBC 0-2 (0-5) /HPF Urine Microscopic WBC 0-2 (0-5) /HPF Ur Epithelial Cells None Seen (None Seen) /HPF Urine Bacteria None Seen (None Seen) /HPF Urine Culture Reflexed NO (NO) 11/24/23 11/24/23 Range/Units 19:40 19:30 WBC 6.7 (4.23-9.07) x10^3/uL RBC 5.67 (4.63-6.08) x10^6/uL Hgb 17.0 (13.7-17.5) g/dL Hct 50.9 (40.1-51.0) % MCV 89.8 (79.0-92.2) fL MCH 30.0 (25.7-32.2) pg MCHC 33.4 (32.3-36.5) g/dL RDW 14.4 (11.6-14.4) % Plt Count 237 (163-337) x10^3/uL MPV 10.4 (9.4-12.4) fL Gran % 59.9 (34.0-67.9) % Immature Gran % (Auto) 0.3 (0.001-0.429) % Nucleat RBC Rel Count 0.0 (0.00-0.2) % Eos # (Auto) 0.24 (0.04-0.54) x10^3/uL Immature Gran # (Auto) 0.02 (0.001-0.031) x10^3u/L Absolute Lymphs (auto) 1.49 (1.32-3.57) x10^3/uL Absolute Monos (auto) 0.93 H (0.30-0.82) x10^3/uL Absolute Nucleated RBC 0.00 (0.00-0.012) x10^3u/L Lymphocytes % 22.2 (21.8-53.1) % Monocytes % 13.9 H (5.3-12.2) % Eosinophils % 3.6 (0.8-7.0) % Basophils % 0.1 L (0.2-1.2) % Absolute Granulocytes 4.01 (1.78-5.38) x10^3/uL Basophils # 0.01 (0.01-0.08) x10^3/uL Sodium (135-145) mmol/L Potassium (3.5-5.1) mmol/L Chloride (98-107) mmol/L Carbon Dioxide (22-30) mmol/L Anion Gap (5-15) MEQ/L BUN (9-20) mg/dL Creatinine (0.66-1.25) mg/dL Estimated GFR ML/MIN Glucose (74-106) mg/dL Lactic Acid 1.5 (0.4-2.0) Calcium (8.4-10.2) mg/dL Total Bilirubin (0.2-1.3) mg/dL AST (17-59) U/L ALT (0-50) U/L Alkaline Phosphatase (38-126) U/L Troponin I (0.000-0.033) ng/mL Serum Total Protein (6.3-8.2) g/dL Albumin (3.5-5.0) g/dL Lipase (23-300) U/L Urine Color (Yellow) Urine Appearance (Clear) Urine pH (4.6-8.0) Ur Specific [place] (1.005-1.030) Urine Protein (Negative) Urine Glucose (UA) (Negative) mg/dL Urine Ketones (Negative) Urine Blood (Negative) Urine Nitrite (Negative) Urine Bilirubin (Negative) Urine Urobilinogen (0.2) mg/dL Ur Leukocyte Esterase (Negative) U Hyaline Cast (Auto) (0-2) /LPF Urine Microscopic RBC (0-5) /HPF Urine Microscopic WBC (0-5) /HPF Ur Epithelial Cells (None Seen) /HPF Urine Bacteria (None Seen) /HPF Urine Culture Reflexed (NO) - Progress Progress: improved Progress Note: Patient responded well to IV medications for pain and N/V. Lab evaluation was largely unremarkable except for his known CKD. CT abd/pelvis showed no significant findings. Patient likely suffering from gastroenteritis and colitis. Given Cipro and Flagyl. He reports having Phenergan at home. Counseled pt/family regarding: lab results, diagnosis, need for follow-up, rad results Medical Desision Making - Diagnostic Testing Diagnostic test were ordered, analyzed, and reviewed by me: Yes Radiological Interpretation: Interpreted by me, Reviewed by me, Teleradiologist Report - Risk of complications The pt has a mod risk of morbidity or mortality based on: Need for prescription drug management - Departure Departure Disposition: Home Clinical Impression: Infectious gastroenteritis and colitis, Nausea & vomiting, CKD (chronic kidney disease), Dehydration Condition: Good Critical Care Time: No Referrals: PHOEBE SUAREZ MD [Primary Care Provider] - Follow up/PCP as directed Instructions: Colitis Forms: Work/School Release Form
[2023-11-24] MEDS: Protonix 40MG Tablet PO ONE (19:33)
[2023-11-24] MEDS ORDERED: Sodium Chloride 0.9% 1000 ML 1,000 ML ONE (19:34)
[2023-11-24] MEDS ORDERED: PROTONIX 40 MG IV IV ONE (19:34)
[2023-11-24] MEDS: Sodium Chloride 0.9% 1000 ML 1,000 ML IV STA (19:37)
[2023-11-24] MEDS: PROTONIX 40 MG IV IV ONE (19:38)
[2023-11-24 19:46] VITALS: RESP 18
[2023-11-24 19:47] LABS: Absolute Neutrophil Ct (ANC) 4.01 x10^3/uL (1.78-5.38); BASOPHIL % 0.1 % (0.2-1.2); Basophil (Absolute #) 0.01 x10^3/uL (0.01-0.08); Eosinophil % 3.6 % (0.8-7.0); Eosinophil (Absolute #) 0.24 x10^3/uL (0.04-0.54); Hematocrit 50.9 % (40.1-51.0); IMMATURE GRAN # 0.02 x10^3u/L (0.001-0.031); IMMATURE GRAN % 0.3 % (0.001-0.429); Lymphocyte (Absolute #) 1.49 x10^3/uL (1.32-3.57); Lymphocytes % 22.2 % (21.8-53.1); Mean Cell Volume 89.8 fL (79.0-92.2); Mean Corpuscular Hgb Concent. 33.4 g/dL (32.3-36.5); Mean Platelet Volume 10.4 fL (9.4-12.4); Monocyte (Absolute #) 0.93 x10^3/uL (0.30-0.82); Monocytes % 13.9 % (5.3-12.2); Neutrophil % 59.9 % (34.0-67.9); Platelet Count 237 x10^3/uL (163-337); Red Blood Count 5.67 x10^6/uL (4.63-6.08); Red Cell Distribution Width 14.4 % (11.6-14.4); White Blood Count 6.7 x10^3/uL (4.23-9.07)
[2023-11-24 20:00] LABS: ANION GAP 15.1 MEQ/L (5-15); BILIRUBIN,TOTAL 0.8 mg/dL (0.2-1.3); Creatinine 1 1.88 mg/dL (0.66-1.25); EST GLOMERULAR FILTRATION RATE 42.2 ML/MIN; Potassium 3.8 mmol/L (3.5-5.1); Total Protein 6.8 g/dL (6.3-8.2)
[2023-11-24 20:03] VITALS: O2SAT 96
[2023-11-24 20:10] LABS: Appearance Clear (Clear); Bacteria None Seen /HPF (None Seen); Bilirubin Negative (Negative); Blood Negative (Negative); Epithelial Cells None Seen /HPF (None Seen); Glucose, Urine Negative (Negative); Ketones Trace (Negative); Leukocyte Esterase Negative (Negative); Nitrite Negative (Negative); Protein,Urine Dip 100 (Negative); RBC 0-2 /HPF (0-5); Specific Gravity 1.025 (1.005-1.030); Urobilinogen 0.2 mg/dL (0.2); WBC 0-2 /HPF (0-5)
[2023-11-24 20:24] LABS: ADD URINE CULTURE? NO (NO)
[2023-11-24 21:52] VITALS: PULSE 111
[2023-11-24] MEDS ORDERED: Cipro 500 MG ONE (22:06)
[2023-11-24] MEDS ORDERED: Flagyl 500 MG ONE (22:06)
[2023-11-24] MEDS: Flagyl 500 MG PO ONE (22:07)
[2023-11-24] MEDS: Cipro 500 MG PO ONE (22:07)
[2023-11-24 22:13] VITALS: BP 132/106
--- NOTE | 2023-11-25 09:01 | XRAY ---
Indication: Abdomen pain, nausea, vomiting, diarrhea. Multiple contiguous axial images obtained through the abdomen and pelvis without contrast. Comparison: November 07, 2022. Lung bases remain clear. Heart not enlarged. Noncontrasted stomach and bowel loops appear nonobstructed again with normal appendix. New mild diffuse colonic diarrhea. Right kidney again demonstrates 2 renal cysts. Stable nonobstructing left renal punctate calculus. No free fluid/air. Remaining liver, gallbladder, pancreas, spleen, adrenal glands, kidneys, ureters, and bladder are unremarkable for noncontrast exam. Again minimal aortic calcifications without AAA. Osseous structures intact again with minimal/mild degenerative changes throughout the spine. Stable small fatty right inguinal hernia. Impression: 1. New colonic diarrhea. 2. Again chronic findings including right renal cysts, nonobstructing left renal punctate calculus, arteriosclerotic disease, chronic bony findings, and fatty right inguinal hernia. 3. Remaining CT abdomen/pelvis without contrast exam is negative.
== END 2023-11-24 22:22 | disposition home or self-care (01) ==
LOC: ED 18:40
DX: A09 Infectious gastroenteritis and colitis, unspecified (principal); R11.2 Nausea with vomiting, unspecified; I12.9 Hypertensive chronic kidney disease with stage 1 through stage 4 chronic kidney disease, or unspecified chronic kidney disease; N18.9 Chronic kidney disease, unspecified; E86.0 Dehydration; E78.5 Hyperlipidemia, unspecified; Z79.899 Other long term (current) drug therapy
CPT/HCPCS: 36000; 36415; 74176; 80053; 81001; 83605; 83690; 84484; 85025; 96374; 96375; 99284; A9270-GY

== ENCOUNTER 2024-09-08 12:31 | Emergency (ER) | payer OTHER ==
[2024-09-08 12:52] VITALS: TEMP 97.3
--- NOTE | 2024-09-08 13:09 | ERPHSYRPT ---
- History of Present Illness Time Seen by Provider: 09/08/24 12:35 Historian: patient, family Exam Limitations: no limitations Patient Subjective Stated Complaint: C/O N/V and diarrhea for 3 days. Abdominal pain; non-radiating, no pain in back. No food today. Last drank sprite at 0800 this am and water 10 minutes prior to coming into the ER today. Triage Nursing Assessment: Patient ambulated back to ER. He is alert and oriented. No SOB. Skin tone normal. GAMEZ WNL. No edema. Physician History: 54-year-old male with history of hypertension presented in the ER with complaints of nausea vomiting/diarrhea with abdominal pain for the last 2 days with progressive worsening. Patient reports dull aching cramping in the center of abdomen, worsening with nausea vomiting and diarrhea. Having multiple episodes of loose watery stool with no hematochezia. Had multiple episodes of nonprojectile, nonbilious vomiting for 2 days, better since morning but severely nauseous. He tried to eat food last night but did not tolerate very well. No fever or chills reported. Denies any known sick contact. Reports feeling weak fatigued tired and dehydrated Allergies/Adverse Reactions: Iodinated Contrast Media [Iodinated Contrast Media - IV Dye] Allergy (Mild, Verified 09/08/24 12:40) Hives Home Medications: Atorvastatin Calcium [Lipitor] 10 mg PO HS 09/08/24 [History] Labetalol HCl 100 mg [Trandate 100 MG] 30 mg PO BID 09/08/24 [History] PANTOPRAZOLE 40 mg Tablet [Protonix 40MG Tablet] 40 mg PO DAILY 09/08/24 [History] Hx Tetanus, Diphtheria Vaccination/Date Given: Yes Hx Influenza Vaccination/Date Given: No Hx Pneumococcal Vaccination/Date Given: No Immunizations Up to Date: Yes Travel Risk - International Travel Have you traveled outside of the country in past 3 weeks: No - Emerging Infectious Disease Are you exhibiting symptoms associated with any current EIDs: Yes Symptoms: Abdominal Pain, Cough: New Onset, Diarrhea, Shortness of Breath, Vomitting - Review of Systems Constitutional: Fatigue, Weakness Eyes: No Symptoms Ears, Nose, & Throat: No Symptoms Respiratory: No Symptoms Cardiac: No Symptoms Abdominal/Gastrointestinal: Abdominal Pain, Nausea, Vomiting, Diarrhea Genitourinary Symptoms: No Symptoms Musculoskeletal: No Symptoms Skin: No Symptoms Neurological: No Symptoms Endocrine: No Symptoms Hematologic/Lymphatic: No Symptoms - Past Medical History Pertinent Past Medical History: Yes Neurological History: No Pertinent History ENT History: No Pertinent History Cardiac History: Coronary Artery Disease, High Cholesterol, Hypertension Respiratory History: No Pertinent History Endocrine Medical History: No Pertinent History Musculoskeletal History: No Pertinent History GI Medical History: No Pertinent History History: Other Psycho-Social History: No Pertinent History Male Reproductive Disorders: No Pertinent History Other Medical History: Decresed kidney function, 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 - Past Surgical History Past Surgical History: Yes Neuro Surgical History: No Pertinent History Cardiac: CABG Respiratory: No Pertinent History Gastrointestinal: No Pertinent History Genitourinary: No Pertinent History Musculoskeletal: Orthopedic Surgery Male Surgical History: No Pertinent History Other Surgical History: L collar bone fx, compound fx L arm, bone out of hip and placed in wrist, fx left 5th finger Significant Family History: no pertinent family hx - Social History Smoking Status: Never smoker Exposure to second hand smoke: No Drug Use: none - Social Determinants of Health Will the patient participate in the screening: Yes Do you worry about a steady place to live?: No Do you have any problems with any of the following?: No known problems In the past 12 months,have you had to go without utilities?: No Transportation Issues: No Has anyone in your support network made you feel unsafe?: No Have you or anyone in your house had to go w/o enough food: No - Nursing Vital Signs Nursing Vital Signs: Initial Vital Signs Temperature 97.3 F 09/08/24 12:41 Pulse Rate 112 H 09/08/24 12:41 Respiratory Rate 23 09/08/24 12:41 Blood Pressure 101/71 09/08/24 12:41 O2 Sat by Pulse Oximetry 98 09/08/24 12:41 Pain Scale Pain Intensity 0 - Physical Exam General Appearance: no apparent distress, alert Eye Exam: PERRL/EOMI Ears, Nose, Throat Exam: normal ENT inspection, pharynx normal, moist mucous membranes Neck Exam: normal inspection, non-tender, supple, full range of motion Respiratory Exam: normal breath sounds, lungs clear Cardiovascular Exam: normal heart sounds, tachycardia Gastrointestinal/Abdomen Exam: soft, tenderness (Mild generalized tenderness to deep palpation with no guarding or rebound), No normal bowel sounds Back Exam: normal inspection, normal range of motion Extremity Exam: normal inspection, normal range of motion Neurologic Exam: alert, oriented x 3, cooperative Skin Exam: normal color SpO2 Interpretation: normal SpO2: 98 O2 Delivery: Room Air Ordered Tests: Active Orders 24 hr Category Date Time Status IV Insertion STAT Care 09/08/24 13:04 Active NPO (ED) STAT Care 09/08/24 13:04 Active ABDOMEN AND PELVIS W/0 CONTRAS [CT] Stat Exams 09/08/24 13:04 Completed CBC W DIFF Stat Lab 09/08/24 13:00 Completed CMP Stat Lab 09/08/24 13:43 Completed LIPASE Stat Lab 09/08/24 13:43 Completed UA W/RFX UR CULTURE Stat Lab 09/08/24 13:04 Completed Medication Summary Discontinued Medications Generic Name Dose Route Start Last Admin Trade Name Freq PRN Reason Stop Dose Admin Sodium Chloride 1,000 mls @ 999 mls/hr 09/08/24 13:04 09/08/24 14:24 Sodium Chloride 0.9% 1000 Ml IV 09/08/24 14:04 Infused .Q1H1M STA Infusion Sodium Chloride Confirm 09/08/24 13:19 Sodium Chloride 0.9% 1000 Ml Administered 09/08/24 13:20 Dose 1,000 mls @ ud .ROUTE .STK-MED ONE Metoclopramide HCl 10 mg 09/08/24 14:28 09/08/24 14:48 Metoclopramide Hcl 10 Mg/2 Ml Vial IV 09/08/24 14:29 10 mg STAT ONE Administration Metoclopramide HCl Confirm 09/08/24 14:33 Metoclopramide Hcl 10 Mg/2 Ml Vial Administered 09/08/24 14:34 Dose 10 mg .ROUTE .STK-MED ONE Ondansetron HCl 4 mg 09/08/24 13:04 09/08/24 13:21 Ondansetron Hcl 4 Mg/2 Ml Vial IV 09/08/24 13:05 4 mg STAT ONE Administration Ondansetron HCl Confirm 09/08/24 13:19 Ondansetron Hcl 4 Mg/2 Ml Vial Administered 09/08/24 13:20 Dose 4 mg .ROUTE .STK-MED ONE Pantoprazole Sodium 40 mg 09/08/24 13:04 09/08/24 13:24 Pantoprazole 40 Mg Vial IV 09/08/24 13:05 40 mg STAT ONE Administration Pantoprazole Sodium Confirm 09/08/24 13:19 Pantoprazole 40 Mg Vial Administered 09/08/24 13:20 Dose 40 mg IV .STK-MED ONE Lab/Rad Data: Laboratory Result Diagrams 09/08/24 13:00 09/08/24 13:43 Laboratory Results 09/08/24 09/08/24 09/08/24 Range/Units 13:43 13:04 13:00 WBC 6.9 (4.23-9.07) x10^3/uL RBC 5.60 (4.63-6.08) x10^6/uL Hgb 16.5 (13.7-17.5) g/dL Hct 49.8 (40.1-51.0) % MCV 88.9 (79.0-92.2) fL MCH 29.5 (25.7-32.2) pg MCHC 33.1 (32.3-36.5) g/dL RDW 14.2 (11.6-14.4) % Plt Count 259 (163-337) x10^3/uL MPV 10.7 (9.4-12.4) fL Gran % 67.3 (34.0-67.9) % Immature Gran % (Auto) 0.4 (0.001-0.429) % Nucleat RBC Rel Count 0.0 (0.00-0.2) % Eos # (Auto) 0.16 (0.04-0.54) x10^3/uL Immature Gran # (Auto) 0.03 (0.001-0.031) x10^3u/L Absolute Lymphs (auto) 1.37 (1.32-3.57) x10^3/uL Absolute Monos (auto) 0.70 (0.30-0.82) x10^3/uL Absolute Nucleated RBC 0.00 (0.00-0.012) x10^3u/L Lymphocytes % 19.8 L (21.8-53.1) % Monocytes % 10.1 (5.3-12.2) % Eosinophils % 2.3 (0.8-7.0) % Basophils % 0.1 L (0.2-1.2) % Absolute Granulocytes 4.66 (1.78-5.38) x10^3/uL Basophils # 0.01 (0.01-0.08) x10^3/uL Sodium 142 (135-145) mmol/L Potassium 4.1 (3.5-5.1) mmol/L Chloride 109 H (98-107) mmol/L Carbon Dioxide 25 (22-30) mmol/L Anion Gap 12.9 (5-15) MEQ/L BUN 19 (9-20) mg/dL Creatinine 1.74 H (0.66-1.25) mg/dL Estimated GFR 46.0 ML/MIN Glucose 112 H (74-106) mg/dL Calcium 8.6 (8.4-10.2) mg/dL Total Bilirubin 0.80 (0.2-1.3) mg/dL AST 25 (17-59) U/L ALT 30 (0-50) U/L Alkaline Phosphatase 80 (38-126) U/L Serum Total Protein 6.1 L (6.3-8.2) g/dL Albumin 3.9 (3.5-5.0) g/dL Lipase 100 (23-300) U/L Urine Color Dark Yellow (Yellow) Urine Appearance Clear (Clear) Urine pH 5.5 (4.6-8.0) Ur Specific [place] 1.020 (1.005-1.030) Urine Protein Trace A (Negative) Urine Glucose (UA) Negative (Negative) mg/dL Urine Ketones Trace A (Negative) Urine Blood Negative (Negative) Urine Nitrite Negative (Negative) Urine Bilirubin Negative (Negative) Urine Urobilinogen 0.2 (0.2) mg/dL Ur Leukocyte Esterase Negative (Negative) U Hyaline Cast (Auto) 3-5 A (0-2) /LPF Urine Microscopic RBC 0-2 (0-5) /HPF Urine Microscopic WBC 0-2 (0-5) /HPF Ur Epithelial Cells None Seen (None Seen) /HPF Urine Bacteria None Seen (None Seen) /HPF Urine Culture Reflexed NO (NO) - Progress Progress: improved, re-examined Progress Note: 09/08/24 15:52 54-year-old is evaluated in the ER for nausea vomiting and diarrhea with some abdominal cramping for the last couple of days. Patient has mild diffuse tenderness, given fluids and symptomatic treatment, on reevaluation is feeling much improved. No vomiting in the ER, nausea is improved. Had did have a bowel movement loose watery without hematochezia. Workup showed normal white count, chemistries with a stable CKD otherwise fairly unremarkable and normal liver enzymes. No UTI. Obtain CT abdomen pelvis without contrast which showed finding consistent with enteritis versus ileus, patient does have hypoactive bowel sounds. Has mildly distended gallbladder but no stones and patient does not have any signs of acute cholecystitis, has no significant tenderness in right upper quadrant area. I believe patient has viral gastroenteritis, recommended taking Zofran, Tylenol and increase hydration/outpatient follow-up. Discussed signs symptoms of worsening needing return to ER which patient seems understanding. Stable for discharge. Complexity of problem addressed: Moderate acute Complexity of data reviewed/analyzed: Moderate Risk of complications/morbidity with current condition: Moderate Counseled pt/family regarding: lab results, diagnosis, need for follow-up, rad results Medical Desision Making - Independent Historian Additional History obtained from: Family - Diagnostic Testing Diagnostic test were ordered, analyzed, and reviewed by me: Yes Radiological Interpretation: Reviewed by me - Risk of complications The pt has a mod risk of morbidity or mortality based on: Need for prescription drug management - Departure Departure Disposition: Home Clinical Impression: Acute gastroenteritis Condition: Stable Critical Care Time: No Referrals: PHOEBE SUAREZ MD [Primary Care Provider] - Follow up with PCP 1 day Instructions: Viral gastroenteritis in adults Additional Instructions: Use Tylenol/Zofran as needed. Increase hydration. Follow-up with primary care for reevaluation. Return to ER for intractable pain/vomiting/diarrhea or if having blood in the stool or vomitus/developing fever chills etc. Prescriptions: Ondansetron ODT 4 MG [Zofran Odt 4 mg] 1 ea PO QIDPRN PRN #10 tablet PRN Reason: n/v
[2024-09-08] MEDS ORDERED: Zofran 4 MG/2 ML VIAL ONE (13:19)
[2024-09-08] MEDS ORDERED: Sodium Chloride 0.9% 1000 ML 1,000 ML ONE (13:19)
[2024-09-08] MEDS ORDERED: PROTONIX 40 MG IV IV ONE (13:19)
[2024-09-08 13:21] LABS: Absolute Neutrophil Ct (ANC) 4.66 x10^3/uL (1.78-5.38); BASOPHIL % 0.1 % (0.2-1.2); Basophil (Absolute #) 0.01 x10^3/uL (0.01-0.08); Eosinophil % 2.3 % (0.8-7.0); Eosinophil (Absolute #) 0.16 x10^3/uL (0.04-0.54); Hematocrit 49.8 % (40.1-51.0); Hemoglobin 16.5 g/dL (13.7-17.5); IMMATURE GRAN # 0.03 x10^3u/L (0.001-0.031); IMMATURE GRAN % 0.4 % (0.001-0.429); Lymphocyte (Absolute #) 1.37 x10^3/uL (1.32-3.57); Lymphocytes % 19.8 % (21.8-53.1); Mean Cell Volume 88.9 fL (79.0-92.2); Mean Corpuscular Hemoglobin 29.5 pg (25.7-32.2); Mean Corpuscular Hgb Concent. 33.1 g/dL (32.3-36.5); Mean Platelet Volume 10.7 fL (9.4-12.4); Monocytes % 10.1 % (5.3-12.2); Neutrophil % 67.3 % (34.0-67.9); Platelet Count 259 x10^3/uL (163-337); Red Cell Distribution Width 14.2 % (11.6-14.4); White Blood Count 6.9 x10^3/uL (4.23-9.07)
[2024-09-08] MEDS: Zofran 4 MG/2 ML VIAL IV ONE (13:21)
[2024-09-08] MEDS: Sodium Chloride 0.9% 1000 ML 1,000 ML IV STA (13:22)
[2024-09-08] MEDS: PROTONIX 40 MG IV IV ONE (13:24)
[2024-09-08 13:34] LABS: Appearance Clear (Clear); Bacteria None Seen /HPF (None Seen); Bilirubin Negative (Negative); Blood Negative (Negative); Epithelial Cells None Seen /HPF (None Seen); Glucose, Urine Negative (Negative); Ketones Trace (Negative); Leukocyte Esterase Negative (Negative); Nitrite Negative (Negative); Ph 5.5 (4.6-8.0); Protein,Urine Dip Trace (Negative); RBC 0-2 /HPF (0-5); Urobilinogen 0.2 mg/dL (0.2); WBC 0-2 /HPF (0-5)
[2024-09-08 13:59] LABS: ALBUMIN 3.9 g/dL (3.5-5.0); ANION GAP 12.9 MEQ/L (5-15); BILIRUBIN,TOTAL 0.8 mg/dL (0.2-1.3); Calcium 8.6 mg/dL (8.4-10.2); Creatinine 1 1.74 mg/dL (0.66-1.25); Potassium 4.1 mmol/L (3.5-5.1); Total Protein 6.1 g/dL (6.3-8.2)
[2024-09-08 14:10] VITALS: RESP 19
--- NOTE | 2024-09-08 14:26 | XRAY ---
Indication: Abdomen pain, vomiting, diarrhea. Multiple contiguous axial images obtained through the abdomen and pelvis without contrast. Comparison: November 24, 2023 Lung bases again clear. Heart not enlarged. Stomach is now distended predominantly with fluid and some food. Gallbladder mildly distended, abnormal in this postprandial patient. Noncontrasted stomach and bowel loops appear nonobstructed. Several small bowel loops are now mildly distended with some fluid leveling, ileus versus enteritis. Normal appendix. Stable right renal cysts and nonobstructing left renal punctate calculus. No free fluid/air. Remaining liver, gallbladder, pancreas, spleen, adrenal glands, kidneys, ureters, and bladder are unremarkable for noncontrast exam. Again minimal aortic calcification without AAA. Osseous structures intact again with minimal degenerative changes throughout spine. Stable small fatty right inguinal hernia. Impression: 1. New fluid/food distended stomach presumed from recent ingestion. Gallbladder is mildly distended, abnormal in this postprandial patient. 2. Mild fluid distended small bowel loops with fluid leveling, ileus versus enteritis. 3. Again chronic findings including right renal cysts, nonobstructing left renal punctate calculus, arteriosclerotic disease, chronic bony findings, and fatty right inguinal hernia.
[2024-09-08] MEDS ORDERED: Reglan 10 MG/2 ML ONE (14:33)
[2024-09-08] MEDS: Reglan 10 MG/2 ML IV ONE (14:42)
[2024-09-08 14:58] VITALS: PULSE 95
[2024-09-08 15:07] VITALS: BP 127/97
[2024-09-08 15:57] VITALS: O2SAT 98
== END 2024-09-08 16:19 | disposition home or self-care (01) ==
LOC: ED 12:31
DX: A08.4 Viral intestinal infection, unspecified (principal); R11.2 Nausea with vomiting, unspecified; R10.84 Generalized abdominal pain; R53.1 Weakness; E78.5 Hyperlipidemia, unspecified; I10 Essential (primary) hypertension; Z79.899 Other long term (current) drug therapy
CPT/HCPCS: 36415; 74176; 80053; 81001; 83690; 85025; 96361; 96374; 96375; 99284; J2405